=== PATIENT | male | born 1945 | race Caucasian/White ===

== ENCOUNTER 2017-07-10 15:06 | Inpatient (IN) | payer BC, OTHER ==
[~2017-07-10] VITALS: Ht 172.7 cm; Wt 76.8 kg
[2017-07-10] MEDS ORDERED: ONDANSETRON INJ 2 MG/ML 2 ML VIAL IV STA (15:25)
[2017-07-10] MEDS ORDERED: HYDROmorphone INJ 1 MG/ML SYR IV STA ×2 (15:25→17:35)
[2017-07-10] MEDS ORDERED: VALS160T58 PO (15:29)
[2017-07-10] MEDS ORDERED: ASPI81TA28 PO (15:29)
[2017-07-10] MEDS ORDERED: NXM/40 PO (15:29)
[2017-07-10] MEDS ORDERED: CHOL1000 PO (15:29)
[2017-07-10] MEDS ORDERED: ROSU40TA PO (15:29)
--- NOTE | 2017-07-10 15:33 | EMERGENCY ROOM VISIT NOTE ---
History First contact with patient: 15:16 Chief Complaint: BACK PAIN Stated Complaint: LOWER BACK PAIN History of Present Illness The patient is a 72 year old male who presents to the Emergency Room with complaints of low back pain. The patient states the pain started 6 days ago. He states that the pain was worse on Friday and he went to the [facility]. The patient followed up with his family doctor this week. He had an MRI of his lumbar spine yesterday. He did not get the results. He has an appointment with Dr. Sparrow's PA tomorrow. The patient has tried diazepam, steroids, Flexeril, oxycodone and has had no relief in his symptoms. The pain is in the low back, primarily on the right side. He rates his discomfort a 10/10. It radiates into the lateral proximal right thigh. 10/10. He denies any loss of bowel or bladder control. He denies any fevers. He denies any saddle anesthesia. He denies any weakness. The patient states that his family doctor encouraged him to come to the hospital for admission. He has not had any chest pain, trouble breathing, abdominal pain, vomiting. Review of Systems A 10 system review of systems was completed with positives and pertinent negatives listed in the HPI. Past Medical/Surgical History Medical Problems: (1) GERD (gastroesophageal reflux disease) (2) Hyperlipidemia (3) Hypertension (4) Lumbar stenosis with neurogenic claudication Social History Smoking Status: Former Smoker Current/Historical Medications Scheduled Aspirin (Aspirin Ec), 81 MG PO DAILY Cholecalciferol (Vitamin D3), 1 TAB PO DAILY Esomeprazole Magnesium (Nexium), 40 MG PO PRN Rosuvastatin Calcium (Crestor), 40 MG PO DAILY Valsartan/Hctz (Diovan Hct 160MG/12.5MG), 1 TAB PO DAILY Physical Exam Vital Signs Date Time Temp Pulse Resp B/P (MAP) Pulse Ox O2 Delivery O2 Flow Rate FiO2 07/10/17 17:55 61 18 139/97 99 Room Air 07/10/17 17:54 99 Room Air 07/10/17 15:10 36.7 73 18 146/75 98 Room Air Physical Exam VITALS: Vitals are noted on the nurse's note and reviewed by myself. Vital signs stable. The patient is afebrile. GENERAL: This is a 72-year-old male, in no acute distress, nondiaphoretic, well- developed well-nourished. SKIN: The skin was without rashes, erythema, edema, or bruising. There is no tenting of the skin. Capillary reflex less than 2 seconds. HEAD: Normocephalic atraumatic. EARS: The external ears are normal in appearance. EYES: Pupils equal round and reactive to light and accommodation. Conjunctivae without injection, sclerae without icterus. Extraocular movements intact. NOSE: Patent, turbinates without inflammation or discharge. No sinus tenderness. MOUTH: Mucous membranes moist. Tonsils are not enlarged. Pharynx without erythema or exudate. Uvula midline. Airway patent. Tongue does not deviate. NECK: Supple without nuchal rigidity. No lymphadenopathy. No thyromegaly. Cervical spine is nontender. No JVD. HEART: Regular rate and rhythm without murmurs gallops or rubs. LUNGS: Clear to auscultation bilaterally without wheezes, rales or rhonchi. No retractions or accessory muscle use. ABDOMEN: Positive bowel sounds x 4. Soft, nontender, without masses or organomegaly. MUSCULOSKELETAL: No muscle atrophy, erythema, or edema noted. Full range of motion in all extremities. Minimal tenderness to palpation in the lumbar vertebrae and laterally on the right. Normal gait. Strength 5/5 throughout. NEURO: Patient was alert and oriented to person place and time. Normal sensation to light and sharp touch. Deep tendon reflexes 2+ throughout. No focal neurological deficits. Medical Decision & Procedures ER Provider Diagnostic Interpretation: An MRI that was performed at 4 PM yesterday at [facility] report was obtained. It was attached to the chart. It does reveal herniated disks at L3- L4 and L5-S1. Laboratory Results 07/10/17 16:26 Red Blood Count 4.76, Mean Corpuscular Volume 93.1, Mean Corpuscular Hemoglobin 31.9, Mean Corpuscular Hemoglobin Concent 34.3, Mean Platelet Volume 9.9, Neutrophils (%) (Auto) 54.3, Lymphocytes (%) (Auto) 35.3, Monocytes (%) (Auto) 9.2, Eosinophils (%) (Auto) 0.8, Basophils (%) (Auto) 0.1, Neutrophils # (Auto) 5.31, Lymphocytes # (Auto) 3.45, Monocytes # (Auto) 0.90, Eosinophils # (Auto) 0.08, Basophils # (Auto) 0.01 07/10/17 16:26 Test 07/10/17 16:10 07/10/17 16:26 Urine Color YELLOW Urine Appearance CLEAR (CLEAR) Urine pH 6.5 (4.5-7.5) Urine Specific [place] 1.016 (1.000-1.030) Urine Protein NEG (NEG) Urine Glucose (UA) NEG (NEG) Urine Ketones NEG (NEG) Urine Occult Blood NEG (NEG) Urine Nitrite NEG (NEG) Urine Bilirubin NEG (NEG) Urine Urobilinogen NEG (NEG) Urine Leukocyte Esterase NEG (NEG) White Blood Count 9.78 K/uL (4.8-10.8) Red Blood Count 4.76 M/uL (4.7-6.1) Hemoglobin 15.2 g/dL (14.0-18.0) Hematocrit 44.3 % (42-52) Mean Corpuscular Volume 93.1 fL (80-100) Mean Corpuscular Hemoglobin 31.9 pg (25-34) Mean Corpuscular Hemoglobin Concent 34.3 g/dl (32-36) Platelet Count 286 K/uL (130-400) Mean Platelet Volume 9.9 fL (7.4-10.4) Neutrophils (%) (Auto) 54.3 % Lymphocytes (%) (Auto) 35.3 % Monocytes (%) (Auto) 9.2 % Eosinophils (%) (Auto) 0.8 % Basophils (%) (Auto) 0.1 % Neutrophils # (Auto) 5.31 K/uL (1.4-6.5) Lymphocytes # (Auto) 3.45 K/uL (1.2-3.4) Monocytes # (Auto) 0.90 K/uL (0.11-0.59) Eosinophils # (Auto) 0.08 K/uL (0-0.5) Basophils # (Auto) 0.01 K/uL (0-0.2) RDW Standard Deviation 44.7 fL (36.4-46.3) RDW Coefficient of Variation 13.1 % (11.5-14.5) Immature Granulocyte % (Auto) 0.3 % Immature Granulocyte # (Auto) 0.03 K/uL (0.00-0.02) Erythrocyte Sedimentation Rate 8 mm/hr (0-14) Anion Gap 5.0 mmol/L (3-11) Est Creatinine Clear Calc Drug Dose 60.4 ml/min Estimated GFR () 78.4 Estimated GFR (Non- 67.7 BUN/Creatinine Ratio 17.3 (10-20) Calcium Level 9.7 mg/dl (8.5-10.1) Total Bilirubin 0.4 mg/dl (0.2-1) Aspartate Amino Transf (AST/SGOT) 20 U/L (15-37) Alanine Aminotransferase (ALT/SGPT) 29 U/L (12-78) Alkaline Phosphatase 43 U/L (45-117) C-Reactive Protein < 0.29 mg/dl (0-0.29) Total Protein 7.3 gm/dl (6.4-8.2) Albumin 4.0 gm/dl (3.4-5.0) Globulin 3.3 gm/dl (2.5-4.0) Albumin/Globulin Ratio 1.2 (0.9-2) Medications Administered Medications (Trade) Dose Ordered Sig/Dorys Route Start Time Stop Time Status Last Admin Dose Admin Ondansetron HCl (Zofran Inj) 4 mg NOW STAT IV 07/10/17 15:25 07/10/17 15:26 DC 07/10/17 15:46 4 MG Hydromorphone HCl (Dilaudid Inj) 1 mg NOW STAT IV 07/10/17 15:25 07/10/17 15:26 DC 07/10/17 15:46 1 MG Hydromorphone HCl (Dilaudid Inj) 1 mg NOW STAT IV 07/10/17 17:35 07/10/17 17:36 DC 07/10/17 17:54 1 MG ED Course The patient was seen and examined. Previous visits were reviewed. The patient does not have a fever or leukocytosis. He does not have any significant electrolyte abnormality. Sedimentation rate and CRP are not elevated. Urinalysis is negative. MRI that was performed yesterday at 4 PM at [facility] was reviewed as above. He has herniated disks at L3-L4 and L5-S1. We did contact [facility] to see if there was any way too electronically transfer the MRI images. They stated that there was no way to do that. The patient does not have images on disc. The patient was given 4 mg IV Zofran and 1 mg IV Dilaudid He still continued to complain of significant pain and was given an additional 1 mg IV Dilaudid The patient presents to the emergency department with low back pain with radiation. He appears to have 2 herniated disks. He has failed outpatient treatment. He has seen his family doctor and [facility] emergency department. He has tried muscle relaxers, narcotics, anti-inflammatories with no relief whatsoever. The patient would benefit from further evaluation and management in the hospital. I discussed the case with Dr. Ortega and he will evaluate the patient. The patient was also seen and examined by Dr. Whyte who agrees with the assessment and treatment plan. Medical Decision DIFFERENTIAL DIAGNOSIS: Lumbar strain, degenerative disc disease, spondylolisthesis, herniated disc, spinal stenosis, osteoporosis, fracture, cauda equina syndrome, neoplasm, infection, inflammatory arthritis, among others. Medication Reconcilliation Current Medication List: was personally reviewed by me Blood Pressure Screening Patient's blood pressure: Elevated blood pressure Blood pressure disposition: Elevated BP felt to be situational Impression Primary Impression: Herniated lumbar intervertebral disc Additional Impression: Intractable low back pain Departure Information Dispostion Admitted as an inpatient Referrals Jose Maria Webb M.D. (PCP) Patient Instructions [facility] Problem Qualifiers
[2017-07-10 16:19] LABS: URINE APPEARANCE CLEAR (CLEAR); URINE BILIRUBIN NEG (NEG); URINE COLOR YELLOW; URINE NITRITE NEG (NEG); URINE PH 6.5 (4.5-7.5); URINE SPECIFIC GRAVITY 1.016 (1.000-1.030); UROBILINOGEN NEG (NEG); ZZUR CULT IF INDIC CLEAN CATCH NO
[2017-07-10 16:23] LABS: MANUAL MICROSCOPIC REQUIRED? NO; REVIEW REQ? NO
[2017-07-10 16:38] LABS: BASO % 0.1 %; BASO ABS # 0.01 K/uL (0-0.2); COMPLETE YES; EOS % 0.8 %; HEMATOCRIT 44.3 % (42-52); IG% 0.3 %; LYMPH % 35.3 %; LYMPH ABS # 3.45 K/uL (1.2-3.4); MEAN CELL VOLUME 93.1 fL (80-100); MEAN CORPUSCULAR HEMOGLOBIN 31.9 pg (25-34); MEAN CORPUSCULAR HGB CONC 34.3 g/dl (32-36); MEAN PLATELET VOLUME 9.9 fL (7.4-10.4); MONO % 9.2 %; NEUT % 54.3 %; PLATELET COUNT 286 K/uL (130-400); RED BLOOD COUNT 4.76 M/uL (4.7-6.1); WHITE BLOOD COUNT 9.78 K/uL (4.8-10.8)
[2017-07-10] MEDS: SODIUM CHLORIDE 0.9% 1000ML 1,000 ML IV SCH (16:52)
[2017-07-10 16:54] LABS: ALT/SGPT 29 U/L (12-78); BLOOD UREA NITROGEN 19 mg/dl (7-18); BUN/CREATININE RATIO 17.3 (10-20); C-REACTIVE PROTEIN < 0.29 mg/dl (0-0.29); CALCIUM 9.7 mg/dl (8.5-10.1); CARBON DIOXIDE 32 mmol/L (21-32); CHLORIDE 101 mmol/L (98-107); GLUCOSE 96 mg/dl (70-99); SODIUM 138 mmol/L (136-145)
[2017-07-10 16:57] LABS: ALB/GLOB RATIO 1.2 (0.9-2); ALKALINE PHOSPHATASE 43 U/L (45-117); AST/SGOT 20 U/L (15-37)
[2017-07-10] MEDS ORDERED: LORAZEPAM 1 MG TAB PO PRN (17:00)
[2017-07-10] MEDS ORDERED: PANTOprazole SOD 40 MG TAB PO PRN (17:00)
[2017-07-10] MEDS ORDERED: CYCLOBENZAPRINE HCL 10 MG TAB PO PRN (17:00)
[2017-07-10] MEDS ORDERED: NALOXONE HCL 0.4 MG/1 ML VIAL/CARP IV PRN (17:00)
[2017-07-10] MEDS ORDERED: LORAZEPAM INJ 1 MG in SYRINGE 0.5 ML IV PRN (17:00)
[2017-07-10] MEDS ORDERED: ACETAMINOPHEN 325 MG TAB PO PRN (17:00)
[2017-07-10] MEDS ORDERED: TRAMADOL HCL 50 MG TAB PO PRN (17:00)
[2017-07-10] MEDS ORDERED: ONDANSETRON INJ 2 MG/ML 2 ML VIAL IV PRN (17:00)
[2017-07-10] MEDS ORDERED: OXYCODONE/ACETAMINOPHEN 5-325 TAB PO PRN (17:00)
[2017-07-10 17:54] VITALS: O2SAT 99; Ht 172.7 cm; Wt 76.8 kg
--- NOTE | 2017-07-10 18:23 | EMERGENCY ROOM VISIT NOTE ---
ED Visit Note First contact with patient: 15:16 I have personally evaluated this patient examined her and reviewed the pertinent labs and data. I have discussed the case with Leilani Santoyo, the physician assistant business manager and agree with the plan. Please refer to the PA note. This patient has been having back pain for about a week and has been pretty severe radiating down his right leg. Despite appropriate outpatient pain medicine, he has had significant pain. He was placed in room B2 and was given IV Dilaudid and seemed more comfortable. Blood work does not suggest infection or electrolyte or metabolic abnormalities. On my exam, he seems comfortable but has pain with movement. He has no neurologic deficits in his legs. MRI from an outside hospital yesterday shows disc disease. We have consulted Dr. Ortega who is going to admit him for pain management and further treatment and evaluation.
[2017-07-10 18:40] VITALS: BP 135/87; PULSE 64; TEMP 36.7; O2SAT 98
--- NOTE | 2017-07-10 18:45 | DIAGNOSTIC IMAGING REPORT ---
CHEST 2 VIEWS ROUTINE HISTORY: pre op COMPARISON: None. FINDINGS: The lungs are clear. Cardiac silhouette is normal in size. No pleural effusions. No pneumothorax. IMPRESSION: No acute process. Electronically signed by: Genaro Tavares M.D. 07/10/2017 6:44 PM Dictated Date/Time: 07/10/2017 6:43 PM
--- NOTE | 2017-07-10 18:45 | DIAGNOSTIC IMAGING REPORT ---
L-SPINE MIN 4 VIEWS ROUTINE HISTORY: 72 years-old Male back and leg pain acute low back pain with right leg pain. COMPARISON: None available TECHNIQUE: 5 views of the lumbar spine FINDINGS: Bones are mildly demineralized. Mild posterior intervertebral disc space narrowing at L5-S1. Moderate facet arthropathy at L5-S1. Mild multilevel endplate spurring and facet arthropathy is noted. Multiple Schmorl's nodes are seen throughout the thoracic and lumbar spine. No acute fracture or subluxation. Vascular calcifications are noted. Soft tissues are unremarkable. IMPRESSION: 1. No acute fracture or subluxation. 2. Mild to moderate degenerative changes of the spine as above, most pronounced at L5-S1. The above report was generated using voice recognition software. It may contain grammatical, syntax or spelling errors. Electronically signed by: Morgan Preez M.D. 07/10/2017 6:44 PM Dictated Date/Time: 07/10/2017 6:41 PM
--- NOTE | 2017-07-10 19:21 | Medical Consult ---
Consultation Date of Consultation: Jul 10, 2017 at 20:00 . Attending Physician: Matthew Ortega D.O. . Reason for Consultation: Medical management . History of Present Illness 72-year-old male from [place]. History of hypertension, dyslipidemia, and other problems noted below. Underwent cardiac catheterization several years ago and was found to have minimal coronary disease (per patient's understanding). Developed low back pain about 6 days prior to admission. No trauma or heavy lifting. The pain is severe and radiates down his right extremity from his low back to his knee. Tried different medications including oxycodone, prednisone, Valium, Flexeril without relief. MRI performed in [place] yesterday reportedly demonstrated herniated discs at L3-L4 and L5-S1. Patient came to the ED for evaluation because of his persistent severe pain. He was admitted to the Orthopedics service for further evaluation and management. . Past Medical/Surgical History Chronic and Resolved Medical Problems: (1) GERD (gastroesophageal reflux disease) Status: Chronic (2) Hyperlipidemia Status: Chronic (3) Hypertension Status: Chronic Surgical Problems: (1) Status post cardiac catheterization Permanent Comment: minimal disease per pt's understanding Status: Chronic . Family History FATHER Myocardial infarction MOTHER Breast cancer Dementia Diabetes mellitus SISTER Cancer Social History Smoking Status: Former Smoker Alcohol Use: 3 beers / day Marital Status: Occupation Status: retired Allergies Coded Allergies: Tetracycline (Verified Allergy, Intermediate, Mood swings; rash, 07/10/17) Home Medications Reported Home Medications Medications Dose Route/Sig Max Daily Dose Days Date Category Dose Instructions Vitamin D3 (Cholecalciferol) 1,000 Unit Tab 1 Tab PO DAILY 07/10/17 Reported Diovan Hct 160MG/12.5MG (HCTZ/Valsartan) 1 Tab Tab 1 Tab PO DAILY 07/10/17 Reported 80MG/12.5MG Nexium (Esomeprazole Magnesium) 40 Mg Capcr 40 Mg PO PRN 07/10/17 Reported Aspirin Ec (Aspirin) 81 Mg Tab 81 Mg PO DAILY 07/10/17 Reported Crestor (Rosuvastatin Calcium) 40 Mg Tab 40 Mg PO DAILY 07/10/17 Reported Current Inpatient Medications Current Inpatient Medications Medications (Trade) Dose Ordered Sig/Dorys Route Start Time Stop Time Status Last Admin Dose Admin Acetaminophen (Tylenol Tab) 650 mg Q6H PRN PO 07/10/17 17:00 08/09/17 16:59 Docusate Sodium (coLACE CAP) 100 mg BID PO 07/10/17 21:00 08/09/17 20:59 Ondansetron HCl (Zofran Inj) 4 mg Q6H PRN IV 07/10/17 17:00 08/09/17 16:59 Lorazepam (Ativan Tab) 1 mg Q6H PRN PO 07/10/17 17:00 08/09/17 16:59 Lorazepam 1 mg/ Syringe 1 ml @ 1 mls/min Q6H PRN IV 07/10/17 17:00 08/09/17 16:59 Cyclobenzaprine HCl (Flexeril Tab) 10 mg Q8H PRN PO 07/10/17 17:00 08/09/17 16:59 Oxycodone/ Acetaminophen (Percocet 5-325mg Tab) Moderate to Severe kim... Q4H PRN PO 07/10/17 17:00 07/24/17 16:59 Tramadol HCl (Ultram Tab) 50 mg Q8H PRN PO 07/10/17 17:00 08/09/17 16:59 Naloxone HCl (Narcan Inj) 0.1 mg Q5M PRN IV 07/10/17 17:00 07/24/17 16:59 Hydromorphone HCl (Dilaudid Claim Manager) 25 mg PRN PRN IV 07/10/17 17:00 07/24/17 16:59 Sodium Chloride 1,000 ml @ 15 mls/hr Q24H IV 07/10/17 16:52 07/24/17 16:59 Aspirin (Ecotrin Tab) 81 mg DAILY PO 07/11/17 09:00 08/10/17 08:59 Rosuvastatin Calcium (Crestor Tab) 40 mg DAILY PO 07/11/17 09:00 08/10/17 08:59 Valsartan (Diovan Tab) 160 mg DAILY PO 07/11/17 09:00 08/10/17 08:59 Pantoprazole Sodium (Protonix Tab) 40 mg DAILY PRN PO 07/10/17 17:00 08/09/17 16:59 Hydrochlorothiazide (Hydrochlorothiazide Tab) 12.5 mg DAILY PO 07/11/17 09:00 08/10/17 08:59 Review of Systems Constitutional: No fever Respiratory: No cough, No shortness of breath Cardiovascular: No chest pain Abdomen: No nausea, No vomiting, No diarrhea, No GI bleeding Musculoskeletal: + joint pain (low back pain as noted above) Genitourinary - Male: No hematuria, No dysuria Hematologic / Lymphatic: No abnormal bleeding/bruising Physical Exam Date Time Temp Pulse Resp B/P (MAP) Pulse Ox O2 Delivery O2 Flow Rate FiO2 07/10/17 17:55 61 18 139/97 99 Room Air 07/10/17 17:54 99 Room Air 07/10/17 15:10 36.7 73 18 146/75 98 Room Air General Appearance: WD/WN, + moderate distress Head: normocephalic, atraumatic Eyes: normal inspection, PERRL, EOMI, sclerae normal ENT: hearing grossly normal, pharynx normal Neck: supple, no adenopathy, thyroid normal, no JVD, trachea midline Respiratory/Chest: lungs clear, no respiratory distress, no accessory muscle use Cardiovascular: regular rate, rhythm, no edema, no gallop, no JVD, no murmur Abdomen/GI: normal bowel sounds, non tender, soft, no organomegaly Back: + pertinent finding (tenderness over low lumbar spine) Extremities/Musculoskelatal: no calf tenderness, no pedal edema Neurologic/Psych: museum attendant II-XII nml as tested (PERRL, EOMI, no facial palsy, no dysarthria), no motor/sensory deficits (motor testing lower extremities grossly intact, but limited due to pain), alert, normal mood/affect, oriented x 3, + pertinent finding (patellar DTRs 1/2 bilaterally) Skin: normal color, warm/dry, no rash Lymphatic: no adenopathy (cervical) Laboratory Results Last 24 Hours Test 07/10/17 16:10 07/10/17 16:26 Urine Color YELLOW Urine Appearance CLEAR Urine pH 6.5 Urine Specific [place] 1.016 Urine Protein NEG Urine Glucose (UA) NEG Urine Ketones NEG Urine Occult Blood NEG Urine Nitrite NEG Urine Bilirubin NEG Urine Urobilinogen NEG Urine Leukocyte Esterase NEG White Blood Count 9.78 K/uL Red Blood Count 4.76 M/uL Hemoglobin 15.2 g/dL Hematocrit 44.3 % Mean Corpuscular Volume 93.1 fL Mean Corpuscular Hemoglobin 31.9 pg Mean Corpuscular Hemoglobin Concent 34.3 g/dl Platelet Count 286 K/uL Mean Platelet Volume 9.9 fL Neutrophils (%) (Auto) 54.3 % Lymphocytes (%) (Auto) 35.3 % Monocytes (%) (Auto) 9.2 % Eosinophils (%) (Auto) 0.8 % Basophils (%) (Auto) 0.1 % Neutrophils # (Auto) 5.31 K/uL Lymphocytes # (Auto) 3.45 K/uL Monocytes # (Auto) 0.90 K/uL Eosinophils # (Auto) 0.08 K/uL Basophils # (Auto) 0.01 K/uL RDW Standard Deviation 44.7 fL RDW Coefficient of Variation 13.1 % Immature Granulocyte % (Auto) 0.3 % Immature Granulocyte # (Auto) 0.03 K/uL Erythrocyte Sedimentation Rate 8 mm/hr Sodium Level 138 mmol/L Potassium Level 4.0 mmol/L Chloride Level 101 mmol/L Carbon Dioxide Level 32 mmol/L Anion Gap 5.0 mmol/L Blood Urea Nitrogen 19 mg/dl Creatinine 1.10 mg/dl Est Creatinine Clear Calc Drug Dose 60.4 ml/min Estimated GFR () 78.4 Estimated GFR (Non- 67.7 BUN/Creatinine Ratio 17.3 Random Glucose 96 mg/dl Calcium Level 9.7 mg/dl Total Bilirubin 0.4 mg/dl Aspartate Amino Transf (AST/SGOT) 20 U/L Alanine Aminotransferase (ALT/SGPT) 29 U/L Alkaline Phosphatase 43 U/L C-Reactive Protein < 0.29 mg/dl Total Protein 7.3 gm/dl Albumin 4.0 gm/dl Globulin 3.3 gm/dl Albumin/Globulin Ratio 1.2 Assessment & Plan LOW BACK PAIN Management per Orthopedics. NONOCCLUSIVE CORONARY ARTERY DISEASE Patient indicates a cardiac catheterization a few years ago demonstrated minimal disease and no intervention was recommended. Physically active without anginal symptoms. Check EKG. HYPERTENSION Blood pressure is well controlled. Continue valsartan and hydrochlorothiazide with hold parameters. Following titrate therapy. DYSLIPIDEMIA Continue statin. GERD Continue PPI. VTE PROPHYLAXIS Per Orthopedics protocol. Thank you for this consultation. We will follow the patient with you during their hospital stay. Dr. Dejesus will be rounding for our team starting Wednesday 07/11. You can reach a member of the [facility] via pager @ . You can reach me via cell @ [phone]. .
[2017-07-10] MEDS: HYDROmorphone HCL 0.5MG/ML 50 ML CASSETTE IV PRN ×2 (20:30→23:12)
[2017-07-10 20:45] VITALS: BP 125/86; PULSE 89; TEMP 36.7; O2SAT 95
[2017-07-10] MEDS ORDERED: INFLUENZA ADMINISTRATION CHARGE ONE (21:00)
[2017-07-10] MEDS ORDERED: INFLUENZA VACCINE HIGH DOSE 65+ 0.5 ML SYR IM. ONE (21:00)
[2017-07-10] MEDS: DOCUSATE SODIUM 100 MG CAP PO SCH (21:00)
[2017-07-10 22:00] VITALS: BP 120/73; PULSE 76; TEMP 37; O2SAT 94
[2017-07-10] MEDS ORDERED: GADAVIST IV PRN (22:15)
--- NOTE | 2017-07-10 22:20 | DIAGNOSTIC IMAGING REPORT ---
LUMBAR SPINE MRI WITH AND WITHOUT CONTRAST HISTORY: back and leg pain TECHNIQUE: Multiplanar multisequence MRI of the lumbar spine was performed both before and after the intravenous administration of contrast. COMPARISON: Lumbar spine 07/10/2017. FINDINGS: For the purpose of the report the L5-S1 disc space will be located on axial image 27 of 30. No fracture subluxation. Mild disc space. L3-L4 and L5-S1. The common terminates at the L1 level. Paraspinal soft tissues are unremarkable. Mild motion artifact. L1-L2: No significant central canal or neural foraminal narrowing. L2-L3: No significant central canal or neural foraminal narrowing. L3-L4: Broad-based posterior disc bulge with a right paracentral extrusion. The disc extrusion extends into and beyond the foramen and superiorly to the right posterior aspect the L3 vertebral body. The disc extrusion compresses the exiting right L3 nerve root best seen on sagittal image 4 and axial image 14 of 30. No significant central canal narrowing. Moderate right neural foraminal narrowing. L4-L5: No significant central canal or neural foraminal narrowing. L5-S1: Central/left paracentral focal disc protrusion which abuts and slightly displaces the transiting left S1 nerve root. There is also mild left neural foraminal narrowing. IMPRESSION: 1. A right paracentral disc extrusion at L3-L4 which extends into and beyond the right foramen as well as superiorly to the right posterior aspect of the L3 vertebral body. This compresses the exiting right L3 nerve root. 2. A central/left paracentral focal disc protrusion at L5-S1 which abuts and slightly displaces the transiting left S1 nerve root. Electronically signed by: Genaro Tavares M.D. 07/10/2017 10:18 PM Dictated Date/Time: 07/10/2017 10:12 PM
[2017-07-10 22:50] VITALS: BP 127/81; PULSE 74; TEMP 36.9
[2017-07-11 06:57] VITALS: BP 132/86; PULSE 58; TEMP 36.7; O2SAT 98
[2017-07-11] MEDS: HYDROmorphone HCL 0.5MG/ML 50 ML CASSETTE IV PRN ×3 (07:19→23:18)
[2017-07-11] MEDS: ROSUVASTATIN CALCIUM 20 MG TAB PO SCH (09:00)
[2017-07-11] MEDS: HYDROCHLOROTHIAZIDE 25 MG TAB PO SCH (09:00)
[2017-07-11] MEDS: DOCUSATE SODIUM 100 MG CAP PO SCH ×2 (09:00→20:44)
[2017-07-11] MEDS: VALSARTAN 80 MG TAB PO SCH (09:00)
[2017-07-11] MEDS: ASPIRIN 81 MG ECTAB PO SCH (09:00)
[2017-07-11 10:39] VITALS: BP 155/92; PULSE 64; TEMP 36.9; O2SAT 97
--- NOTE | 2017-07-11 11:46 | History and Physical ---
History & Physical Date Jul 11, 2017. Chief Complaint Severe right leg pain History of Present Illness The patient is a 72 year old male with complaints of severe back and right leg pain. States his symptoms began over week ago. Denies any specific trauma fall or event. Describes his symptoms as chronic consistent pain rating into the right buttock extending down the right anterior thigh consistent with numbness and weakness to the right leg. He's been unable to sleep. Ambulation is markedly limited secondary to pain. He cannot describe any position that alleviates his discomfort. Pain medications have very modest effect and controlling his symptom complex. He does have a history of intermittent back pain throughout the past decade but nothing to this severity. Past Medical/Surgical History Medical Problems: (1) GERD (gastroesophageal reflux disease) (2) Hyperlipidemia (3) Hypertension (4) Lumbar stenosis with neurogenic claudication Surgical Problems: (1) Status post cardiac catheterization Additional History Hepatic Disease: No Endocrine Disorder: No Kidney Disease: No Hypertension: Yes Heart Disease: No Bleeding Tendencies: No Infectious Diseases: No Allergies Coded Allergies: Tetracycline (Verified Allergy, Intermediate, Mood swings; rash, 07/10/17) Home Medications Scheduled Aspirin (Aspirin Ec), 81 MG PO DAILY Cholecalciferol (Vitamin D3), 1 TAB PO DAILY Esomeprazole Magnesium (Nexium), 40 MG PO PRN Rosuvastatin Calcium (Crestor), 40 MG PO DAILY Valsartan/Hctz (Diovan Hct 160MG/12.5MG), 1 TAB PO DAILY Physical Examination Skin: warm/dry, no rash Eyes: normal inspection, EOMI, sclerae normal ENT: normal ENT inspection, pharynx normal Head: normocephalic, atraumatic Neck: supple, no adenopathy, trachea midline Respiratory/Chest: lungs clear, normal breath sounds, no respiratory distress Cardiovascular: regular rate, rhythm, no edema, no murmur Abdomen / GI: normal bowel sounds, non tender Back: normal inspection Extremities: normal inspection, normal range of motion Neurologic/Psych: no motor/sensory deficits, alert, normal reflexes, oriented x 3 Addiitonal Comments: Patient is alert and oriented. He is not obvious distress. He exhibits marked decreased sensation to palpation light touch of the right anterior thigh compared to left. He exhibits of bilateral +5 over 5 plantar flexion dorsiflexion extensor pollicis longus. His right quadriceps is 4 over 5 with breakaway weakness compared to the left. He is negative logroll. He is marked tension signs with femoral stretch. Diagnosis Far lateral disc herniation with severe neural foraminal stenosis L3 4 on the right. Plan of Treatment At this time the patient is markedly uncomfortable is unable to undergo his activities of daily living and function. Subsequently he would like to pursue surgical intervention. Surgery would require a lumbar decompression and fusion at L3 4. This would allow us to completely decompress the foramina of L3-4 on the right as well as addressed the disc herniation occupying this region. We acknowledge some disc protrusion and collapse the 5 S1 level however this is not contributing to her symptom complex at this time. Risks benefits pros cons and alternatives were outlined in detail. Risk include but not limited to from anesthesia blindness sterile process nerve damage but last current transfusion infection requiring reoperation. Benefits of a marked improvement of his symptom complex. At this time we'll try to have surgery performed as soon as possible in light of the severity of his pain.
--- NOTE | 2017-07-11 11:54 | Progress Note ---
Internal Med Progress Note Date of Service: Jul 11, 2017. Provider Documentation: SUBJECTIVE: patient seen and examined at the bedside. he is in no acute distress. able to cooperative with physical exam. here for evaluation by orthopedics for possible surgery of lumbar decompression and fusion at L3 L4. OBJECTIVE: Exam: General- no acute distress Eyes- EOMI Nose - no exudates Neck-trachea midline, no JVD Lungs- clear to auscultation bilaterally Heart- RRR Abdomen- soft, nontender, + bowel sounds Back: no acute tenderness Extremities- no edema, no motor deficits Neuro- awake and alert and oriented ASSESSMENT & PLAN: LOW BACK PAIN here for evaluation by orthopedics for possible surgery of lumbar decompression and fusion at L3-L4 NONOCCLUSIVE CORONARY ARTERY DISEASE patient reports cardiac cath in 1978 and in 2005 without stents EKG this AM on 07/11/17 sinus bradycardia 57 beats per minute with incomplete RBBB and no available prior EKG available denies chest pain symptoms or shortness of breath, no leg edema, no JVD HYPERTENSION Blood pressure systolic 130s to 155 Continue valsartan and hydrochlorothiazide DYSLIPIDEMIA Continue statin. GERD Continue PPI. Alcohol use reports 3 beers daily with last beer 2 days ago. denies history of withdrawal symptoms. Ativan prn ordered for agitation or withdrawal VTE PROPHYLAXIS Per Orthopedics protocol. DISPOSITION patient awaiting orthopedic surgery for possible lumbar decompression and fusion at L3-L4 Medicine consult to continue following the patient post-op Vital Signs: Date Time Temp Pulse Resp B/P (MAP) Pulse Ox O2 Delivery O2 Flow Rate FiO2 07/11/17 10:39 36.9 64 16 155/92 (113) 97 Room Air 07/11/17 06:57 36.7 58 18 132/86 (101) 98 Room Air 07/11/17 00:00 Room Air 07/10/17 22:50 36.9 74 16 127/81 (96) Room Air 07/10/17 22:00 37.0 76 16 120/73 (89) 94 Room Air 07/10/17 20:45 36.7 89 18 125/86 (99) 95 Room Air 07/10/17 18:40 36.7 64 18 135/87 (103) 98 Room Air 07/10/17 18:40 98 Room Air 07/10/17 17:55 61 18 139/97 99 Room Air 07/10/17 17:54 99 Room Air 07/10/17 15:10 36.7 73 18 146/75 98 Room Air Lab Results: Results Past 24 Hours Test 07/10/17 16:10 07/10/17 16:26 Range/Units Urine Color YELLOW Urine Appearance CLEAR CLEAR Urine pH 6.5 4.5-7.5 Urine Specific Millis 1.016 1.000-1.030 Urine Protein NEG NEG Urine Glucose (UA) NEG NEG Urine Ketones NEG NEG Urine Occult Blood NEG NEG Urine Nitrite NEG NEG Urine Bilirubin NEG NEG Urine Urobilinogen NEG NEG Urine Leukocyte Esterase NEG NEG White Blood Count 9.78 4.8-10.8 K/uL Red Blood Count 4.76 4.7-6.1 M/uL Hemoglobin 15.2 14.0-18.0 g/dL Hematocrit 44.3 42-52 % Mean Corpuscular Volume 93.1 80-100 fL Mean Corpuscular Hemoglobin 31.9 25-34 pg Mean Corpuscular Hemoglobin Concent 34.3 32-36 g/dl Platelet Count 286 130-400 K/uL Mean Platelet Volume 9.9 7.4-10.4 fL Neutrophils (%) (Auto) 54.3 % Lymphocytes (%) (Auto) 35.3 % Monocytes (%) (Auto) 9.2 % Eosinophils (%) (Auto) 0.8 % Basophils (%) (Auto) 0.1 % Neutrophils # (Auto) 5.31 1.4-6.5 K/uL Lymphocytes # (Auto) 3.45 1.2-3.4 K/uL Monocytes # (Auto) 0.90 0.11-0.59 K/uL Eosinophils # (Auto) 0.08 0-0.5 K/uL Basophils # (Auto) 0.01 0-0.2 K/uL RDW Standard Deviation 44.7 36.4-46.3 fL RDW Coefficient of Variation 13.1 11.5-14.5 % Immature Granulocyte % (Auto) 0.3 % Immature Granulocyte # (Auto) 0.03 0.00-0.02 K/uL Erythrocyte Sedimentation Rate 8 0-14 mm/hr Sodium Level 138 136-145 mmol/L Potassium Level 4.0 3.5-5.1 mmol/L Chloride Level 101 98-107 mmol/L Carbon Dioxide Level 32 21-32 mmol/L Anion Gap 5.0 3-11 mmol/L Blood Urea Nitrogen 19 7-18 mg/dl Creatinine 1.10 0.60-1.40 mg/dl Est Creatinine Clear Calc Drug Dose 60.4 ml/min Estimated GFR () 78.4 Estimated GFR (Non- 67.7 BUN/Creatinine Ratio 17.3 10-20 Random Glucose 96 70-99 mg/dl Calcium Level 9.7 8.5-10.1 mg/dl Total Bilirubin 0.4 0.2-1 mg/dl Aspartate Amino Transf (AST/SGOT) 20 15-37 U/L Alanine Aminotransferase (ALT/SGPT) 29 12-78 U/L Alkaline Phosphatase 43 45-117 U/L C-Reactive Protein < 0.29 0-0.29 mg/dl Total Protein 7.3 6.4-8.2 gm/dl Albumin 4.0 3.4-5.0 gm/dl Globulin 3.3 2.5-4.0 gm/dl Albumin/Globulin Ratio 1.2 0.9-2
[2017-07-11] MEDS ORDERED: LORAZEPAM INJ 2 MG in SYRINGE 1 ML IV PRN (12:30)
[2017-07-11 14:50] VITALS: BP 150/93; PULSE 65; TEMP 36.8; O2SAT 99
[2017-07-11] MEDS: SODIUM CHLORIDE 0.9% 1000ML 1,000 ML IV SCH (16:52)
[2017-07-11 19:21] VITALS: BP 124/77; PULSE 73; TEMP 37.4; O2SAT 95
[2017-07-11 22:52] VITALS: BP 147/87; PULSE 70; TEMP 36.9; O2SAT 98
[2017-07-12] VITALS (11 sets, daily range): BP systolic 108–142; BP diastolic 70–87; PULSE 63–110; TEMP 36.3–37.7; O2SAT 90–99
[2017-07-12] MEDS: HYDROmorphone HCL 0.5MG/ML 50 ML CASSETTE IV PRN (07:12)
[2017-07-12] MEDS: ASPIRIN 81 MG ECTAB PO SCH (07:41)
[2017-07-12] MEDS: VALSARTAN 80 MG TAB PO SCH (07:41)
[2017-07-12] MEDS: DOCUSATE SODIUM 100 MG CAP PO SCH ×2 (07:41→21:19)
[2017-07-12] MEDS: HYDROCHLOROTHIAZIDE 25 MG TAB PO SCH (07:41)
[2017-07-12] MEDS: ROSUVASTATIN CALCIUM 20 MG TAB PO SCH (07:43)
--- NOTE | 2017-07-12 10:47 | History & Physical Bridge Note ---
H&P Re-Evaluation Bridge Note: I have examined the patient, reviewed the History & Physical and in the interval since the performance of the History & Physical I have noted the following changes of clinical significance: No changes noted
[2017-07-12] MEDS ORDERED: ATROPINE SULFATE 0.1 MG/ML 5ML SYR IV PRN (11:30)
[2017-07-12] MEDS ORDERED: LABETALOL HCL IV 5 MG/ML 20ML IV PRN (11:30)
[2017-07-12] MEDS ORDERED: ONDANSETRON INJ 2 MG/ML 2 ML VIAL IV PRN (11:30)
[2017-07-12] MEDS ORDERED: HYDROmorphone INJ 2 MG/ML SYR/VIAL IV PRN (11:30)
[2017-07-12] MEDS ORDERED: MIDAZOLAM HCL 1 MG/ML 2ML VIAL ONE (12:47)
[2017-07-12] MEDS ORDERED: DEXAMETHASONE SOD INJ 4 MG/ML VIAL ONE (12:47)
[2017-07-12] MEDS ORDERED: ONDANSETRON INJ 2 MG/ML 2 ML VIAL ONE (12:47)
[2017-07-12] MEDS ORDERED: FENTANYL CITRATE INJ 50 MCG/1 ML 2 ML VIAL ONE (12:47)
[2017-07-12] MEDS ORDERED: NEOSTIGMINE METHYLSULFATE 1 MG/ML 10ML VIAL ONE (12:47)
[2017-07-12] MEDS ORDERED: GLYCOPYRROLATE INJ 0.2 MG/ML VIAL ONE (12:47)
[2017-07-12] MEDS ORDERED: LIDOCAINE HCL 2% 2 ML VIAL (20MG/ML) ONE (12:47)
[2017-07-12] MEDS ORDERED: PROPOFOL IV EMULSION 10 MG/ML 20 ML VIAL IV ONE (12:47)
[2017-07-12] MEDS ORDERED: BUPIVACAINE/EPINEPHRINE 0.5% MPF 1:200,000 30 ML VIAL ONE (12:53)
[2017-07-12] MEDS ORDERED: BACITRACIN 50000 UNIT VIAL ONE (12:54)
[2017-07-12] MEDS ORDERED: ESMOLOL HCL 10 MG/ML 10 ML VIAL ONE (14:31)
[2017-07-12] MEDS ORDERED: ROCURONIUM BROMIDE 10 MG/ML 5 ML VIAL IV ONE (14:32)
[2017-07-12] MEDS ORDERED: EpHEDrine SULFATE 50MG/5ML SYR ONE (14:32)
[2017-07-12] MEDS ORDERED: PHENYLEPHRINE 100MCG/ML 5ML SYR ONE (14:32)
[2017-07-12] MEDS ORDERED: FLOSEAL HEMOSTATIC MATRIX 10ML TOP ONE (15:09)
--- NOTE | 2017-07-12 15:25 | [facility] Operative Report ---
Operative Report Operative Date Jul 12, 2017. Pre-Operative Diagnosis Far lateral disc herniation with severe neural foraminal stenosis L3 4 on the right. Post-Operative Diagnosis same as pre-operative Procedure(s) Performed #1 lumbar decompression medial facetectomy foraminotomies L3 4. #2 posterior spinal fusion L3 4. #3 placement posterior instrumentation L3 4. #4 interbody fusion L3 4. #5 placement peek cage 12 x 26 mm at L3 4. 6 placement locally harvested morcellized autograft in the posterior lateral gutters. #7 placement of ostial amp bone graft in the body space and posterior lateral gutters. Surgeon Dr. Matthew Ortega Estimated Blood Loss 100ml Findings Severe spinal stenosis with foraminal herniated nucleus pulposus on the right Specimens none per surgeon Description of Procedure Patient was met with preoperatively case discussed all questions are dressed. After informed consent obtained patient was taken to the operative suite and intubated placed in prone position the [place] table top [place] frame. All bony promises well-padded eyes inspected to ensure there is no external pressure placed upon. This point the lumbar spine was prepped and draped in normal sterile fashion. Sharp dissection with the assistance of Bovie cautery was performed onto an exposing the lamina and transverse processes of L3 and L4 bilaterally. From a caudal cephalad fashion complete laminectomy of 3 was performed including medial facetectomies foraminotomies bilaterally. Evidence of massive disc herniation the right neural foramen was identified and removed. This is grating significant compression of the L3 nerve root. After this complete pedicle screws are placed in L3-L4 bilaterally with assistance of fluoroscopy the purposes liane placed. Through a transforaminal approach on the right a complete discectomy was performed and plate created to subcortical bleeding bone and a 12 x 26 [place] peek cage filled with ostial amp tapped in position. The rods were then compressed locked and final position bilaterally. The transverse processes of L3 and L4 burred to subcortical bleeding bone. Remaining ostial amp bone graft locally harvested morcellized autograft was placed and posterior gutters. 15 round ARPIT drain inserted. Incision was then closed with 1 Vicryl fascia 2-0 Vicryl subcutaneous tediously 4 Monocryl for final skin closure Steri-Strip sterile dressing placed. Patient we can take PACU stable condition. I attest to the content of the Intraoperative Record and any orders documented therein. Any exceptions are noted below.
[2017-07-12] MEDS ORDERED: ADENOSINE IV SOLN 3 MG/ML 2 ML VIAL ONE ×2 (15:40→15:47)
[2017-07-12] MEDS ORDERED: NURSING VERBAL MED ORDER ONE ×2 (15:45→16:00)
[2017-07-12] MEDS ORDERED: HYDROmorphone INJ 2 MG/ML SYR/VIAL ONE (15:59)
--- NOTE | 2017-07-12 16:03 | Anesthesiology Progress Note ---
Anesthesia Progress Note Date of Service Jul 12, 2017. Progress Notes After taking patient ti ICU for his recovery time he went into a regular, narrow complex svt - hr in 140's - otherwise not sympomatic. Given adenosine 6mg IV which broke it for a couple minutes but it again returned. Adenosine 12mg IV given with good pause and result to HR 70's. Patient had had a very short self-limited run in the OR after induction and from talking to him has probably had in the past. Gave 2 doses of esmolol 10mg IV and spoke with Dr Friend from medicine who is being consulted and he requested a 12 lead ECG. Patient will be sent to a monitored bed when his recovery is complete.
--- NOTE | 2017-07-12 16:38 | Anesthesiology Progress Note ---
Anesthesia Post Op Note Date & Time Jul 12, 2017 at 16:38 Vital Signs Pain Intensity: 3 Vital Signs Past 12 Hours Date Time Temp Pulse Resp B/P (MAP) Pulse Ox O2 Delivery O2 Flow Rate FiO2 07/12/17 16:15 36.8 82 16 132/72 100 Nasal Cannula 4 07/12/17 16:05 85 16 145/72 100 Nasal Cannula 4 07/12/17 15:55 84 16 150/77 100 Nasal Cannula 4 07/12/17 15:45 71 16 127/67 100 Nasal Cannula 4 07/12/17 15:35 144 16 131/78 100 Nasal Cannula 4 07/12/17 15:25 37 98 16 125/65 100 Nasal Cannula 4 07/12/17 10:32 36.9 65 16 137/74 (95) 96 Room Air 07/12/17 07:45 36.6 63 18 138/87 (104) 98 Room Air 07/12/17 07:30 Room Air Notes Mental Status: alert / awake / arousable, participated in evaluation Pt Amnestic to Procedure: Yes Nausea / Vomiting: adequately controlled Pain: adequately controlled Airway Patency, RR, SpO2: stable & adequate BP & HR: stable & adequate Hydration State: stable & adequate Anesthetic Complications: no major complications apparent
--- NOTE | 2017-07-12 17:54 | Progress Note ---
Internal Med Progress Note Date of Service: Jul 12, 2017. Provider Documentation: SUBJECTIVE: follow up consultation note: patient s/p back surgery. was found in recovery time to have "a regular, narrow complex svt - hr in 140's - otherwise not symptomatic. Given adenosine 6mg IV which broke it for a couple minutes but it again returned. Adenosine 12mg IV given with good pause and result to HR 70's. " In addition anesthesia also gave 2 doses of esmolol 10 mg IV. Patient does not recall this episode as he was still under sedation at the time. was then transferred to a telemetry bed. patient comfortable breathing on room air. denies shortness of breath. denies chest pain or palpitations. is at his usual mental baseline OBJECTIVE: Exam: General- no acute distress, speaking in full sentences Eyes- EOMI Nose - no exudates Neck-trachea midline, no JVD Lungs- clear to auscultation bilaterally, no wheezing, no use of accessory respiratory muscles Heart- heart rate is regular around 90 beats per minute Abdomen- soft, nontender, + bowel sounds Back - ARPIT drain attached to back with serosanguinous fluid Extremities- no edema, no motor deficits Neuro- awake and alert and oriented x 3 ASSESSMENT & PLAN: LOW BACK PAIN s/p operation on 07/12/17 for the following #1 lumbar decompression medial facetectomy foraminotomies L3 4. #2 posterior spinal fusion L3 4. #3 placement posterior instrumentation L3 4. #4 interbody fusion L3 4. #5 placement peek cage 12 x 26 mm at L3 4. 6 placement locally harvested morcellized autograft in the posterior lateral gutters. #7 placement of ostial amp bone graft in the body space and posterior lateral gutters. Arrhythmia s/p adenosine and esmolol after surgery because of runs of SVT currently in sinus rhythm on telemetry will need pain medications s/p back surgery to minimize sinus tachycardia secondary to pain NONOCCLUSIVE CORONARY ARTERY DISEASE patient reports cardiac cath in 1978 and in 2005 without stents EKG AM on 07/11/17 sinus bradycardia 57 beats per minute with incomplete RBBB and no available prior EKG available HYPERTENSION Blood pressure systolic 130s to 155 Continue valsartan and hydrochlorothiazide DYSLIPIDEMIA Continue statin. GERD Continue PPI. Alcohol use reports 3 beers daily with last beer 2 days ago. denies history of withdrawal symptoms. Ativan prn ordered for agitation or withdrawal VTE PROPHYLAXIS Per Orthopedics protocol. DISPOSITION Medicine consult to continue following the patient post-op Vital Signs: Date Time Temp Pulse Resp B/P (MAP) Pulse Ox O2 Delivery O2 Flow Rate FiO2 07/12/17 17:57 36.5 79 16 133/75 (94) 99 Nasal Cannula 07/12/17 17:15 36.6 78 21 142/84 (103) 96 Nasal Cannula 2.0 07/12/17 17:00 36.6 96 18 136/84 (101) 90 Room Air 07/12/17 16:30 36.8 79 16 139/76 97 Room Air 07/12/17 16:15 36.8 82 16 132/72 100 Nasal Cannula 4 07/12/17 16:05 85 16 145/72 100 Nasal Cannula 4 07/12/17 15:55 84 16 150/77 100 Nasal Cannula 4 07/12/17 15:45 71 16 127/67 100 Nasal Cannula 4 07/12/17 15:35 144 16 131/78 100 Nasal Cannula 4 07/12/17 15:25 37 98 16 125/65 100 Nasal Cannula 4 07/12/17 10:32 36.9 65 16 137/74 (95) 96 Room Air 07/12/17 07:45 36.6 63 18 138/87 (104) 98 Room Air 07/12/17 07:30 Room Air 07/12/17 03:31 36.8 70 16 135/84 (101) 95 Room Air 07/11/17 23:34 Room Air 07/11/17 22:52 36.9 70 20 147/87 (107) 98 Room Air 07/11/17 19:21 37.4 73 18 124/77 (93) 95 Room Air
[2017-07-12] MEDS: SODIUM CHLORIDE 0.9% 1000ML 1,000 ML IV SCH (18:03)
[2017-07-12] MEDS: DEXAMETHASONE INJ 10 MG in SYRINGE 0 ML IV SCH (21:19)
[2017-07-13 03:20] VITALS: BP 110/76; PULSE 95; TEMP 36.7; O2SAT 93
[2017-07-13 07:05] VITALS: BP 124/81; PULSE 83; TEMP 36.6; O2SAT 97
[2017-07-13] MEDS: DEXAMETHASONE INJ 10 MG in SYRINGE 0 ML IV SCH ×2 (08:24→13:11)
[2017-07-13] MEDS: DOCUSATE SODIUM 100 MG CAP PO SCH ×2 (08:25→20:31)
[2017-07-13] MEDS: ASPIRIN 81 MG ECTAB PO SCH (08:25)
[2017-07-13] MEDS: VALSARTAN 80 MG TAB PO SCH (08:25)
[2017-07-13] MEDS: ROSUVASTATIN CALCIUM 20 MG TAB PO SCH (08:26)
--- NOTE | 2017-07-13 08:28 | Orthopedic Progress Note ---
Orthopedic Progress Note Date of Service Jul 13, 2017. Subjective Post OP Day: 1 Reports: feeling well Additional Notes: Jayro's postoperative day one lumbar decompression and instrumented fusion of L3 4. He is in the telemetry floor due to a new onset postoperatively of SVTs and a heart rate of 140. This is stable. He denies shortness of breath or chest pain. Denies radicular leg pain. Back pain is controlled. Objective calves soft nontender, N/V intact, dressing C/D/I, A&O x3, toes mobile Patient is seen in conjunction with his . He is up at the sink brushing his teeth. No obvious distress. Lumbar dressing is clean dry and intact. Neurovascularly intact bilateral lower extremities Date Time Temp Pulse Resp B/P (MAP) Pulse Ox O2 Delivery O2 Flow Rate FiO2 07/13/17 07:05 36.6 83 16 124/81 (95) 97 Room Air 07/13/17 04:00 Room Air 07/13/17 03:20 36.7 95 20 110/76 (87) 93 Room Air 07/13/17 00:00 Room Air 07/12/17 23:28 36.7 98 20 122/75 (91) 95 Room Air 07/12/17 20:30 36.6 105 21 108/72 (84) 94 Room Air 07/12/17 20:00 Room Air 07/12/17 19:30 37.7 110 20 111/70 (84) 94 Room Air 07/12/17 18:30 36.5 108 16 122/80 (94) 96 Nasal Cannula 2.0 07/12/17 17:57 36.5 79 16 133/75 (94) 99 Nasal Cannula 07/12/17 17:30 36.3 81 21 125/78 (94) 98 Nasal Cannula 2.0 07/12/17 17:15 36.6 78 21 142/84 (103) 96 Nasal Cannula 2.0 07/12/17 17:00 36.6 96 18 136/84 (101) 90 Room Air 07/12/17 16:30 36.8 79 16 139/76 97 Room Air 07/12/17 16:15 36.8 82 16 132/72 100 Nasal Cannula 4 07/12/17 16:05 85 16 145/72 100 Nasal Cannula 4 07/12/17 15:55 84 16 150/77 100 Nasal Cannula 4 07/12/17 15:45 71 16 127/67 100 Nasal Cannula 4 07/12/17 15:35 144 16 131/78 100 Nasal Cannula 4 07/12/17 15:25 37 98 16 125/65 100 Nasal Cannula 4 07/12/17 10:32 36.9 65 16 137/74 (95) 96 Room Air Assessment & Plan Assessment: Postoperative day 1 lumbar decompression with instrumented fusion. 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 Start physical therapy. DVT prophylaxis is in the form of a teds and scds. Continue pain control with oral medication. Once medically stable he'll be transferred to the orthopedic floor. Inhouse Planning DVT Prophylaxis: TEDs SCDs
[2017-07-13] MEDS: HYDROCHLOROTHIAZIDE 25 MG TAB PO SCH (09:10)
[2017-07-13 11:20] VITALS: BP 118/76; PULSE 95; TEMP 36.8; O2SAT 97
[2017-07-13] MEDS ORDERED: NURSING VERBAL MED ORDER ONE (13:45)
--- NOTE | 2017-07-13 15:24 | Progress Note ---
Internal Med Progress Note Date of Service: Jul 13, 2017. Provider Documentation: SUBJECTIVE: patient seen and examined in telemetry floor. patient denies chest pain or palpitations. reports he has been walking without significant discomfort. OBJECTIVE: Exam: General- no acute distress, speaking in full sentences Eyes- EOMI Nose - no exudates Neck-trachea midline, no JVD Lungs- clear to auscultation bilaterally, no wheezing, no use of accessory respiratory muscles Heart- heart rate is regular around 90 beats per minute Abdomen- soft, nontender, + bowel sounds Back - ARPIT drain attached to back with serosanguinous fluid Extremities- no edema, no motor deficits Neuro- awake and alert and oriented x 3 ASSESSMENT & PLAN: LOW BACK PAIN s/p operation on 07/12/17 for the following #1 lumbar decompression medial facetectomy foraminotomies L3 4. #2 posterior spinal fusion L3 4. #3 placement posterior instrumentation L3 4. #4 interbody fusion L3 4. #5 placement peek cage 12 x 26 mm at L3 4. 6 placement locally harvested morcellized autograft in the posterior lateral gutters. #7 placement of ostial amp bone graft in the body space and posterior lateral gutters. Arrhythmia s/p adenosine and esmolol after surgery because of runs of SVT currently in sinus rhythm on telemetry likely can discontinue telemetry at this time but will defer this to primary orthopedic team continue pain medications s/p back surgery to minimize sinus tachycardia secondary to pain NONOCCLUSIVE CORONARY ARTERY DISEASE patient reports cardiac cath in 1978 and in 2005 without stents EKG AM on 07/11/17 sinus bradycardia 57 beats per minute with incomplete RBBB and no available prior EKG available HYPERTENSION Blood pressure controlled Continue valsartan and hydrochlorothiazide DYSLIPIDEMIA Continue statin. GERD Continue PPI. Alcohol use reports 3 beers daily with last beer 2 days ago. denies history of withdrawal symptoms. no withdrawal symptoms observed VTE PROPHYLAXIS Per Orthopedics protocol. DISPOSITION Medicine consult to continue following the patient post-op Vital Signs: Date Time Temp Pulse Resp B/P (MAP) Pulse Ox O2 Delivery O2 Flow Rate FiO2 07/13/17 12:00 Room Air 07/13/17 11:20 36.8 95 16 118/76 (90) 97 Room Air 07/13/17 08:00 Room Air 07/13/17 07:05 36.6 83 16 124/81 (95) 97 Room Air 07/13/17 04:00 Room Air 07/13/17 03:20 36.7 95 20 110/76 (87) 93 Room Air 07/13/17 00:00 Room Air 07/12/17 23:28 36.7 98 20 122/75 (91) 95 Room Air 07/12/17 20:30 36.6 105 21 108/72 (84) 94 Room Air 07/12/17 20:00 Room Air 07/12/17 19:30 37.7 110 20 111/70 (84) 94 Room Air 07/12/17 18:30 36.5 108 16 122/80 (94) 96 Nasal Cannula 2.0 07/12/17 17:57 36.5 79 16 133/75 (94) 99 Nasal Cannula 07/12/17 17:30 36.3 81 21 125/78 (94) 98 Nasal Cannula 2.0 07/12/17 17:15 36.6 78 21 142/84 (103) 96 Nasal Cannula 2.0 07/12/17 17:00 36.6 96 18 136/84 (101) 90 Room Air 07/12/17 16:30 36.8 79 16 139/76 97 Room Air 07/12/17 16:15 36.8 82 16 132/72 100 Nasal Cannula 4 07/12/17 16:05 85 16 145/72 100 Nasal Cannula 4 07/12/17 15:55 84 16 150/77 100 Nasal Cannula 4 07/12/17 15:45 71 16 127/67 100 Nasal Cannula 4 07/12/17 15:35 144 16 131/78 100 Nasal Cannula 4 07/12/17 15:25 37 98 16 125/65 100 Nasal Cannula 4
[2017-07-13 15:50] VITALS: BP 139/74; PULSE 79; TEMP 36.8; O2SAT 95
[2017-07-13 19:26] VITALS: BP 113/77; PULSE 91; TEMP 37.3; O2SAT 97
[2017-07-13 23:50] VITALS: BP 135/83; PULSE 75; TEMP 36.7; O2SAT 98
[2017-07-14 04:00] VITALS: BP 105/62; PULSE 82; TEMP 36.8; O2SAT 97
[2017-07-14 07:43] VITALS: BP 105/68; PULSE 78; TEMP 36.9; O2SAT 98
[2017-07-14] MEDS: HYDROCHLOROTHIAZIDE 25 MG TAB PO SCH (08:26)
[2017-07-14] MEDS: VALSARTAN 80 MG TAB PO SCH (08:26)
[2017-07-14] MEDS: DOCUSATE SODIUM 100 MG CAP PO SCH (08:27)
[2017-07-14] MEDS: ROSUVASTATIN CALCIUM 20 MG TAB PO SCH (08:27)
[2017-07-14] MEDS: ASPIRIN 81 MG ECTAB PO SCH (08:27)
--- NOTE | 2017-07-14 09:09 | Progress Note ---
Internal Med Progress Note Date of Service: Jul 14, 2017. Provider Documentation: SUBJECTIVE: patient seen and examined in telemetry floor. patient denies chest pain or palpitations. reports he has been walking without significant discomfort. OBJECTIVE: Exam: General- no acute distress, speaking in full sentences, seen ambulating in hallway to the bed without discomfort or problems with gait Eyes- EOMI Nose - no exudates Neck-trachea midline, no JVD Lungs- clear to auscultation bilaterally, no wheezing, no use of accessory respiratory muscles Heart- heart rate is regular around 90 beats per minute Abdomen- soft, nontender, + bowel sounds Back - ARPIT drain attached to back Extremities- no edema, no motor deficits Neuro- awake and alert and oriented x 3 ASSESSMENT & PLAN: LOW BACK PAIN s/p operation on 07/12/17 for the following #1 lumbar decompression medial facetectomy foraminotomies L3 4. #2 posterior spinal fusion L3 4. #3 placement posterior instrumentation L3 4. #4 interbody fusion L3 4. #5 placement peek cage 12 x 26 mm at L3 4. 6 placement locally harvested morcellized autograft in the posterior lateral gutters. #7 placement of ostial amp bone graft in the body space and posterior lateral gutters. Arrhythmia s/p adenosine and esmolol immediately after surgery because of runs of SVT currently in sinus rhythm on telemetry, review of telemetry overnight with PVCs likely can discontinue telemetry at this time but will defer this to primary orthopedic team continue pain medications s/p back surgery to minimize sinus tachycardia secondary to pain NONOCCLUSIVE CORONARY ARTERY DISEASE patient reports cardiac cath in 1978 and in 2005 without stents EKG AM on 07/11/17 sinus bradycardia 57 beats per minute with incomplete RBBB and no available prior EKG available HYPERTENSION Blood pressure controlled Continue valsartan and hydrochlorothiazide DYSLIPIDEMIA Continue statin. GERD Continue PPI. Alcohol use reports 3 beers daily with last beer 2 days ago. denies history of withdrawal symptoms. no withdrawal symptoms observed Pain control medication as per Orthopedics VTE PROPHYLAXIS Per Orthopedics protocol. DISPOSITION Medicine consult to continue following the patient post-op, patient reports he is expecting to go to rehab soon Vital Signs: Date Time Temp Pulse Resp B/P (MAP) Pulse Ox O2 Delivery O2 Flow Rate FiO2 07/14/17 07:43 36.9 78 16 105/68 (80) 98 Room Air 07/14/17 04:00 Room Air 07/14/17 04:00 36.8 82 18 105/62 (76) 97 Room Air 07/14/17 00:00 Room Air 07/13/17 23:50 36.7 75 18 135/83 (100) 98 Room Air 07/13/17 20:00 Room Air 07/13/17 19:26 37.3 91 20 113/77 (89) 97 Room Air 07/13/17 15:50 36.8 79 20 139/74 (95) 95 Room Air 07/13/17 15:25 Room Air 07/13/17 12:00 Room Air 07/13/17 11:20 36.8 95 16 118/76 (90) 97 Room Air
--- NOTE | 2017-07-14 11:03 | Anesthesiology Progress Note ---
Anesthesia Post Op Note Date & Time Jul 14, 2017 at 11:03 Vital Signs Vital Signs Past 12 Hours Date Time Temp Pulse Resp B/P (MAP) Pulse Ox O2 Delivery O2 Flow Rate FiO2 07/14/17 08:00 Room Air 07/14/17 07:43 36.9 78 16 105/68 (80) 98 Room Air 07/14/17 04:00 Room Air 07/14/17 04:00 36.8 82 18 105/62 (76) 97 Room Air 07/14/17 00:00 Room Air 07/13/17 23:50 36.7 75 18 135/83 (100) 98 Room Air Notes Mental Status: alert / awake / arousable, participated in evaluation Pt Amnestic to Procedure: Yes Nausea / Vomiting: adequately controlled Pain: adequately controlled Airway Patency, RR, SpO2: stable & adequate BP & HR: stable & adequate Hydration State: stable & adequate Anesthetic Complications: no major complications apparent
[2017-07-14 11:38] VITALS: BP 124/81; PULSE 74; TEMP 36.1; O2SAT 99
[2017-07-14] MEDS ORDERED: OXYC-57 PO (12:25)
--- NOTE | 2017-07-14 12:26 | Discharge Instructions ---
Discharge Instructions Date of Service Jul 14, 2017. Admission Reason for Admission: Lumbar Stenosis With Neurogenic Claudication Discharge Discharge Diagnosis / Problem: lumbar stenosis Discharge Goals Goal(s): Improve function Activity Recommendations Activity Limitations: per Instructions/Follow-up section . Instructions / Follow-Up Instructions / Follow-Up ACTIVITY RECOMMENDATIONS: SELF CARE INSTRUCTIONS AFTER THORACIC/LUMBAR FUSIONS 1. You may walk to your tolerance. It is good exercise for your legs and back. Expect some back and intermittent leg aches and pains. 2. You may perform "counter-top" level activities (make a sandwich, luzmaria with a project, etc.). 3. No bending or lifting of more than 10 pounds or back twisting of any nature (roll like a log when turning in bed). 4. You may ride in a car for 20-30 minutes at a time. No driving until after your first visit with your doctor. 5. Frequent changes of position and restricting sitting to 30 minutes at a time will help limit the amount of back spasms and stiffness you may experience. 6. You may discontinue the use of ambulatory aids (cane, crutches, etc.) once your strength and confidence allow. 7. You may edge glue machine tender the shower and let water strike your incision when you arrive home at least once daily. Do not take a tub bath, sit in a hot tub or go into a swimming pool until after your first recheck in the office. SPECIAL CARE INSTRUCTIONS: VERY IMPORTANT TO READ AND REVIEW A. Your surgical incision has been closed with a cosmetic suture under the skin that will dissolve in about 6 weeks. In 14 days, you can use a pair of clean scissors and cut the suture that is left outside of the skin at the ends of your incision. 1. The small skin tapes can be removed 7 days after surgery if they have not fallen off by that point. 2. You may keep the wound open to air as much as possible to promote healing after post-op day number 5 unless told otherwise by your doctor. 3. If you think the wound looks like it is becoming infected (redness or worsening drainage) and/or you are experiencing fever, chill or worsening back pain and muscle spasms, contact the office so that we may evaluate you as soon as possible. B. Complications are uncommon, but please contact us if you have any signs or symptoms of: 1. wound infection (fever higher than 102.5 degrees F, redness, separation of wound, drainage, or increasing pain from the incision) 2. blood clots in legs (pain, swelling, redness and warmth in legs) 3. urinary tract infection (fever higher than 102.5 degrees F, burning upon urination or increased frequency of urination) 4. nerve problems (inability to walk on your toes or heels, numbness, loss of bowel or bladder control) 5. any other symptoms that concern you C. Please call the office at if you have any concerns or questions about your operation or recovery. D. No smoking! Smoking drastically decreases the chance of a solid fusion. E. Do not take any anti-inflammatory medications (Indocin, Advil, Motrin, Aspirin, Naprosyn, etc.) as these may inhibit the chance of a solid fusion. Tylenol is okay to take for pain. MANAGING PAIN AFTER SPINAL SURGERY 1. Narcotic medication is intended for short-term use and will be provided for surgical pain. Surgical pain usually lasts for a period of 4-6 weeks. Narcotic medication includes Percocet, Vicodin, Darvocet, Tylenol #3 or Lortab. 2. Longer-term pain is more appropriately treated with non-narcotic medication such as Tylenol ES. 3. Muscle spasm is not appropriately treated with narcotics. Muscle relaxers such as Soma, Flexeril or Skelaxin can be used along with Tylenol ES. 4. Remember that we all live with some "aches and pains". This is not unusual or uncommon after an injury or as we get older. a. Back pain is expected and may include muscle spasms for 4 to 6 weeks after surgery. The pain should gradually improve. If the pain worsens for no apparent reason, please contact the office. b. Intermittent leg pain may also be experienced and should not be concerned about unless it worsens for no apparent reason. If so, please contact the office. 5. We will provide appropriate medication within the normal guidelines of their prescribed use. We will also be very cautious and aware of potential abuse and extended duration of patients' medication needs. a. Pain medications are for your comfort and to assist with sleep and rest so that the tissue can heal. They are not provided in order to return to normal activity and should not be used through the day. To do so or worsening pain at night can result from ongoing tissue damage and development of tolerance to the prescribed medicine. 6. Please allow 2-3 days to process refills. Prescriptions will not be mailed but must be picked up at the office. FOLLOW UP VISIT: Keep your scheduled follow-up appointment. Any questions, please call the office at . Current Hospital Diet Patient's current hospital diet: Regular Diet Discharge Diet Recommended Diet: Regular Diet Procedures Procedures Performed: #1 lumbar decompression medial facetectomy foraminotomies L3 4. #2 posterior spinal fusion L3 4. #3 placement posterior instrumentation L3 4. #4 interbody fusion L3 4. #5 placement peek cage 12 x 26 mm at L3 4. 6 placement locally harvested morcellized autograft in the posterior lateral gutters. #7 placement of ostial amp bone graft in the body space and posterior lateral gutters. Pending Studies Studies pending at discharge: no Medical Emergencies . Who to Call and When: Medical Emergencies: If at any time you feel your situation is an emergency, please call 911 immediately. . Non-Emergent Contact Non-Emergency issues call your: Primary Care Provider . "Provider Documentation" section prepared by Matthew Ortega. . VTE Core Measure Inpt VTE Proph given/why not?: Nino Rodriguez, [facility]
[2017-07-14 13:05] VITALS: BP 124/81; PULSE 74; TEMP 36.1; O2SAT 99
--- NOTE | 2017-07-14 15:09 | Discharge Summary ---
Orthopedic Discharge Summary Admission Date/Reason Jul 10, 2017 at 16:59 Lumbar Stenosis With Neurogenic Claudication. Discharge Date/Disposition Jul 14, 2017 Home Diagnosis Principal Diagnosis: Lumbar spinal stenosis herniated nucleus pulposus L34 Admission Physical Exam As per Admitting History & Physical. Hospital Course Patient was admitted with the severe leg and back pain for pain control. He underwent preoperative evaluation subsequent lumbar decompression fusion. He tolerated this well was up and amatory postoperative day 1 into pain improved. Substernally was discharged home. Discharge orders and instructions found on the chart for further review. Discharge Instructions Please refer to the electronic Patient Visit Report (Discharge Instructions) for additional information.
--- NOTE | 2017-07-15 07:53 | DIAGNOSTIC IMAGING REPORT ---
INTRAOPERATIVE RADIOGRAPHS CLINICAL HISTORY: L3-L4 spinal fusion. Fluoroscopy time: 15 seconds. FINDINGS: 2 spot fluoroscopic views of the lumbar spine are presented. There has been discectomy at L4-L5 with laminectomy and posterior fusion at this level. Interpedicular screws are present at both levels. The orthopedic hardware appears intact. IMPRESSION: Intraoperative images from L4 -L5 spinal fusion as above. Electronically signed by: Teo Fitzgerald M.D. 07/14/2017 7:43 AM Dictated Date/Time: 07/14/2017 7:42 AM
== END 2017-07-14 13:25 | disposition home or self-care (01) | DRG 460 ==
LOC: C.EDB 15:10 → C.MSW 16:59 → ENRESERV 17:40 → C.2T 07-12 17:27
PROVIDERS: ADMIT Orthopaedic Surgery Orthopaedic Surgery of the Spine; ATTEND Orthopaedic Surgery Orthopaedic Surgery of the Spine
PROC: 01NB0ZZ Release Lumbar Nerve, Open Approach (ICD-10-PCS; principal; 2017-07-12 10:45)
PROC: 0SG00AJ Fusion of Lumbar Vertebral Joint with Interbody Fusion Device, Posterior Approach, Anterior Column, Open Approach (ICD-10-PCS; principal; 2017-07-12 10:45)
DX: M48.062 Spinal stenosis, lumbar region with neurogenic claudication (principal); I47.1 Supraventricular tachycardia; M51.26 Other intervertebral disc displacement, lumbar region; I25.10 Atherosclerotic heart disease of native coronary artery without angina pectoris; I10 Essential (primary) hypertension; E78.5 Hyperlipidemia, unspecified; K21.9 Gastro-esophageal reflux disease without esophagitis; F10.20 Alcohol dependence, uncomplicated; Z87.891 Personal history of nicotine dependence; Z79.82 Long term (current) use of aspirin; Z79.899 Other long term (current) drug therapy; Z88.1 Allergy status to other antibiotic agents; Z82.49 Family history of ischemic heart disease and other diseases of the circulatory system; Z83.3 Family history of diabetes mellitus; Z80.3 Family history of malignant neoplasm of breast; Z81.8 Family history of other mental and behavioral disorders

== ENCOUNTER 2017-07-27 22:23 | Emergency (ER) | payer BC, OTHER ==
[~2017-07-27] VITALS: Ht 172.7 cm; Wt 76.3 kg
[~2017-07-27 22:23] MED LIST: ASPI81TA28 PO; CHOL1000 PO; NXM/40 PO; OXYC-57 PO; ROSU40TA PO; VALS160T58 PO
[2017-07-27 22:27] VITALS: Ht 172.7 cm; Wt 76.3 kg
[2017-07-27] MEDS ORDERED: SODIUM CHLORIDE 0.9% 1000ML 1,000 ML IV STA (22:45)
[2017-07-27] MEDS ORDERED: DILTIAZEM HCL 5 MG/ML 5 ML VIAL IV STA (22:49)
[2017-07-27 22:53] LABS: BASO % 0.2 %; BASO ABS # 0.02 K/uL (0-0.2); COMPLETE YES; EOS % 0.9 %; HEMATOCRIT 40.6 % (42-52); IG% 0.7 %; LYMPH % 22.1 %; LYMPH ABS # 2.33 K/uL (1.2-3.4); MEAN CELL VOLUME 90.8 fL (80-100); MEAN CORPUSCULAR HGB CONC 35.2 g/dl (32-36); MEAN PLATELET VOLUME 9.4 fL (7.4-10.4); MONO % 10.9 %; NEUT % 65.2 %; PLATELET COUNT 376 K/uL (130-400); RED BLOOD COUNT 4.47 M/uL (4.7-6.1); WHITE BLOOD COUNT 10.56 K/uL (4.8-10.8)
[2017-07-27 23:02] LABS: INR 1.1 (0.9-1.1); PROTHROMBIN TIME (PATIENT) 11.3 SECONDS (9.0-12.0)
[2017-07-27 23:09] VITALS: O2SAT 97
[2017-07-27 23:22] LABS: ALT/SGPT 29 U/L (12-78); BLOOD UREA NITROGEN 18 mg/dl (7-18); BUN/CREATININE RATIO 15.8 (10-20); CALCIUM 9.2 mg/dl (8.5-10.1); CARBON DIOXIDE 27 mmol/L (21-32); CHLORIDE 103 mmol/L (98-107); CREATININE 1.13 mg/dl (0.60-1.40); GLUCOSE 65 mg/dl (70-99); POTASSIUM 3.9 mmol/L (3.5-5.1); SODIUM 138 mmol/L (136-145)
[2017-07-27 23:33] LABS: ALKALINE PHOSPHATASE 59 U/L (45-117); AST/SGOT 17 U/L (15-37); CKMB/CK RATIO 2.5 (0-3.0)
[2017-07-28 00:04] VITALS: BP 110/71; PULSE 58; TEMP 36.7; O2SAT 97
--- NOTE | 2017-07-28 00:22 | EMERGENCY ROOM VISIT NOTE ---
History Report prepared by Cr: Candice Vallejo Under the Supervision of: Dr. Koffi Lea D.O. First contact with patient: 22:35 Chief Complaint: CARDIAC ASSESSMENT Stated Complaint: LIGHT HEADED, HIGH PULSE 150, BP 96/60 History of Present Illness The patient is a 72 year old male who presents to the Emergency Room with complaints of persistent low blood pressure and an elevated heart rate that started earlier today. The patient states that he was walking and started to feel light headed. He reports that he went home to have lunch at 1200 and he felt fine once he sat down. He states that when he stood up after lunch he began to feel light headed again. The patient reports that he took his own blood pressure and it was very low. He notes that he contacted his neighbor who is a registered nurse. She checked his blood pressure and received the same results. The patient states that he has been experiencing frequent urination and bowel movements since his back surgery on July 12, 2017. The patient denies any history of A-fib. The patient states he has been eating and drinking regularly. 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 He has a history of hearth catheters. The patient denies having any stents. He reports that he is on blood pressure medication. Source of History: patient Onset: earlier today Position: other (low BP, elevated heart rate) Timing: other (persistent) Associated Symptoms: + urinary symptoms (frequent urination) Note: Additional symptoms: light headedness, frequent bowel movements. Review of Systems See HPI for pertinent positives & negatives. A total of 10 systems reviewed and were otherwise negative. Past Medical & Surgical Medical Problems: (1) GERD (gastroesophageal reflux disease) (2) Hyperlipidemia (3) Hypertension (4) Lumbar stenosis with neurogenic claudication Surgical Problems: (1) Status post cardiac catheterization Family History Breast cancer MOTHER Cancer SISTER Dementia MOTHER Diabetes mellitus MOTHER Myocardial infarction FATHER Social History Smoking Status: Former Smoker Drug Use: none Marital Status: Housing Status: lives with significant other Occupation Status: retired Current/Historical Medications Scheduled Aspirin (Aspirin Ec), 81 MG PO DAILY Cholecalciferol (Vitamin D3), 1 TAB PO DAILY Esomeprazole Magnesium (Nexium), 40 MG PO PRN Rosuvastatin Calcium (Crestor), 40 MG PO DAILY Valsartan/Hctz (Diovan Hct 160MG/12.5MG), 1 TAB PO DAILY Scheduled PRN Oxycodone/Acetaminophen 5MG/325MG (Percocet 5MG/325MG), 1-2 TAB PO Q4H PRN for MODERATE TO SEVERE PAIN Allergies Coded Allergies: Tetracycline (Verified Allergy, Intermediate, Mood swings; rash, 07/27/17) Physical Exam Vital Signs Date Time Temp Pulse Resp B/P (MAP) Pulse Ox O2 Delivery O2 Flow Rate FiO2 07/28/17 00:04 36.7 58 18 110/71 97 Room Air 07/27/17 23:24 57 18 119/85 97 Room Air 07/27/17 23:09 97 Room Air 07/27/17 23:02 95 Room Air 07/27/17 22:41 136 07/27/17 22:27 36.9 153 18 114/82 97 Room Air Physical Exam CONSTITUTIONAL/VITAL SIGNS: Reviewed / noted above. GENERAL: Non-toxic in appearance. INTEGUMENTARY: Warm, dry, and [place]. HEAD: Normocephalic. EYES: without scleral icterus or trauma. ENT/OROPHARYNX: clear and moist. LYMPHADENOPATHY/NECK: Is supple without lymphadenopathy or meningismus. RESPIRATORY: Lungs clear and equal. CARDIOVASCULAR: Tachycardic rate and rhythm. GI/ABDOMEN: Soft and nontender. No organomegaly or pulsatile mass. No rebound or guarding. Normal bowel sounds. EXTREMITIES: Warm and well perfused. BACK: No CVA tenderness. NEUROLOGICAL: Intact without focal deficits. PSYCHIATRIC: normal affect. MUSCULOSKELETAL: Normally developed with good muscle tone. Medical Decision & Procedures ER Provider Diagnostic Interpretation: Radiology results as stated below per my review and radiologist interpretation: CHEST X-RAY: No pneumonia, no pneumothorax, no acute disease. Laboratory Results 07/27/17 22:40 Red Blood Count 4.47, Mean Corpuscular Volume 90.8, Mean Corpuscular Hemoglobin 32.0, Mean Corpuscular Hemoglobin Concent 35.2, Mean Platelet Volume 9.4, Neutrophils (%) (Auto) 65.2, Lymphocytes (%) (Auto) 22.1, Monocytes (%) (Auto) 10.9, Eosinophils (%) (Auto) 0.9, Basophils (%) (Auto) 0.2, Neutrophils # (Auto ) 6.89, Lymphocytes # (Auto) 2.33, Monocytes # (Auto) 1.15, Eosinophils # (Auto ) 0.10, Basophils # (Auto) 0.02 07/27/17 22:40 Test 07/27/17 22:40 White Blood Count 10.56 K/uL (4.8-10.8) Red Blood Count 4.47 M/uL (4.7-6.1) Hemoglobin 14.3 g/dL (14.0-18.0) Hematocrit 40.6 % (42-52) Mean Corpuscular Volume 90.8 fL (80-100) Mean Corpuscular Hemoglobin 32.0 pg (25-34) Mean Corpuscular Hemoglobin Concent 35.2 g/dl (32-36) Platelet Count 376 K/uL (130-400) Mean Platelet Volume 9.4 fL (7.4-10.4) Neutrophils (%) (Auto) 65.2 % Lymphocytes (%) (Auto) 22.1 % Monocytes (%) (Auto) 10.9 % Eosinophils (%) (Auto) 0.9 % Basophils (%) (Auto) 0.2 % Neutrophils # (Auto) 6.89 K/uL (1.4-6.5) Lymphocytes # (Auto) 2.33 K/uL (1.2-3.4) Monocytes # (Auto) 1.15 K/uL (0.11-0.59) Eosinophils # (Auto) 0.10 K/uL (0-0.5) Basophils # (Auto) 0.02 K/uL (0-0.2) RDW Standard Deviation 42.4 fL (36.4-46.3) RDW Coefficient of Variation 12.9 % (11.5-14.5) Immature Granulocyte % (Auto) 0.7 % Immature Granulocyte # (Auto) 0.07 K/uL (0.00-0.02) Prothrombin Time 11.3 SECONDS (9.0-12.0) Prothromb Time International Ratio 1.1 (0.9-1.1) Activated Partial Thromboplast Time 27.2 SECONDS (21.0-31.0) Partial Thromboplastin Ratio 1.0 Anion Gap 8.0 mmol/L (3-11) Est Creatinine Clear Calc Drug Dose 58.8 ml/min Estimated GFR () 75.9 Estimated GFR (Non- 65.5 BUN/Creatinine Ratio 15.8 (10-20) Calcium Level 9.2 mg/dl (8.5-10.1) Total Bilirubin 0.2 mg/dl (0.2-1) Direct Bilirubin < 0.1 mg/dl (0-0.2) Aspartate Amino Transf (AST/SGOT) 17 U/L (15-37) Alanine Aminotransferase (ALT/SGPT) 29 U/L (12-78) Alkaline Phosphatase 59 U/L (45-117) Total Creatine Kinase 110 U/L (39-308) Creatine Kinase MB 2.8 ng/ml (0.5-3.6) Creatine Kinase MB Ratio 2.5 (0-3.0) Troponin I 0.032 ng/ml (0-0.045) Total Protein 7.6 gm/dl (6.4-8.2) Albumin 3.7 gm/dl (3.4-5.0) Lipase 263 U/L (73-393) Thyroid Stimulating Hormone (TSH) 2.360 uIu/ml (0.300-4.500) Laboratory results as stated above per my review. Medications Administered Medications (Trade) Dose Ordered Sig/Dorys Route Start Time Stop Time Status Last Admin Dose Admin Sodium Chloride 1,000 ml @ 999 mls/hr Q1H1M STAT IV 07/27/17 22:45 07/27/17 23:45 DC 07/27/17 23:08 999 MLS/HR Diltiazem HCl (Cardizem Inj) 15 mg NOW STAT IV 07/27/17 22:49 07/27/17 22:50 DC 07/27/17 23:09 15 MG ECG Indication: tachycardia Rate (beats per minute): 130 Rhythm: SVT Findings: T-wave inversion (Lateral, inferior), no ectopy ED Course 2235: Previous medical records were reviewed. The patient was evaluated in room C9. A complete history and physical examination was performed. 2245: Sodium Chloride 1000 ml @ 999 mls/hr IV. 2249: Cardizem Inj 15 mg IV. 0015: On reevaluation, the patient is resting comfortably. I discussed the results and findings with the patient. He verbalized agreement of the treatment plan. He will be discharged home. Medical Decision the differential was considered includes acute myocardial infarction, acute coronary syndrome, myocarditis, pericarditis, pericardial effusions /tamponade, esophageal perforation, thoracic aortic dissection, pulmonary embolism, pneumonia, pneumothorax, pancreatitis, shingles, acute cholecystitis, perforated abdominal viscus. This is a 72-year-old male who presents to the ED with a chief complaint of palpitations and tachycardia. The patient reports that he was walking and became a little lightheaded. This occurred around noon. He checked his blood pressure and it seemed a little low and the 90s or low 100s and his heart rate was elevated. He came in for evaluation of this. His initial EKG revealed an SVT versus A. fib/A flutter with RVR with a rate in the 130 to 140 range. The patient was given some IV fluids and 50 mg of IV Cardizem. The patient subsequently converted into a sinus bradycardia at a rate of 40s to 50s. The patient denied any other significant symptoms. Denies any chest pains or shortness of breath. His CBC and complete metabolic panel were normal. Troponin was normal. Chest x-ray did not show acute disease. The patient was told results of his tests. He is asymptomatic. He is felt to be stable for discharge and outpatient follow-up. He was given a referral to cardiology services. Medication Reconcilliation Current Medication List: was personally reviewed by me Blood Pressure Screening Patient's blood pressure: Normal blood pressure Impression Primary Impression: SVT (supraventricular tachycardia) Scribe Attestation The scribe's documentation has been prepared under my direction and personally reviewed by me in its entirety. I confirm that the note above accurately reflects all work, treatment, procedures, and medical decision making performed by me. Departure Information Dispostion Home / Self-Care Referrals Jimbo Merino D.O. (PCP) Akira Sanders M.D. Patient Instructions My [facility] Additional Instructions Follow-up with cardiology services (Dr. Sanders ) listed. Return for any concerns or worsening.
--- NOTE | 2017-07-28 06:38 | DIAGNOSTIC IMAGING REPORT ---
CHEST ONE VIEW PORTABLE HISTORY: 72 years-old Male Evaluate Fever/Sepsis acute fever and hypotension with tachycardia COMPARISON: Chest radiograph 07/10/2017 TECHNIQUE: Portable semiupright AP view of the chest FINDINGS: Cardiomediastinal and hilar silhouettes are within normal limits. There is no pneumothorax, pleural effusion, focal airspace consolidation or overt pulmonary edema. The bones of the chest appear grossly intact. IMPRESSION: No acute cardiopulmonary process. The above report was generated using voice recognition software. It may contain grammatical, syntax or spelling errors. Electronically signed by: Morgan Perez M.D. 07/28/2017 6:37 AM Dictated Date/Time: 07/28/2017 6:36 AM
== END 2017-07-28 00:32 | disposition home or self-care (01) ==
LOC: C.EDB 22:25 → C.EDC 07-28 00:32
DX: I47.1 Supraventricular tachycardia (principal); R42 Dizziness and giddiness; I10 Essential (primary) hypertension; K21.9 Gastro-esophageal reflux disease without esophagitis; I25.10 Atherosclerotic heart disease of native coronary artery without angina pectoris; Z87.891 Personal history of nicotine dependence; Z79.82 Long term (current) use of aspirin; Z79.899 Other long term (current) drug therapy

== ENCOUNTER 2023-08-01 05:57 | Inpatient (IN) ==
--- NOTE | 2023-07-25 09:02 | Anesthesiology Consultation ---
Date of Service July 25, 2023 Assessment & Plan (1) Encounter for pre-operative examination: - Infectious disease screening: Per assessment on 07/24/23: No known infectious disease contacts or current infectious disease symptoms. No noted Covid positive test result in past 90 days. - S/P L3-4 decompression/fusion (07/12/17): Grade view 2, MAC#4, ETT 8.0 at [facility]. Per post-op anesthesia progress note 07/12/2017, "After taking patient ti [sic] ICU for his recovery time he went into a regular, narrow complex svt- hr in 140's- Otherwise not symptomatic. Given adenosine 6 mg IV which broke it for a couple minutes but it again returned. Adenosine 12 mg IV given with good pause and result to heart rate 70's. Patient had had a very short selfLimited run in the OR after induction and from talking to him has probably had in the past. Gave 2 doses of esmolol 10 mg IV and spoke with Dr. Friend from medicine who is being consulted and he requested a 12 lead ECG. Patient will be sent to a monitored bed when his recovery is complete." > Patient subsequently established and has since been monitored by [facility] cardiology outpatient* - Recent hospitalization (07/13-07/14/23): "presents to the ER today with complaints of tingling and numbness around the lips, hearing in and headache which started this morning. Patient states his story dates back to last Friday when he mowed grass in his home between 3 and 8:00 p.m. At around 11:00 p.m, he states he started having some cramps in his legs which went up to his back. The following day, he went to an urgent care center where he was prescribed prednisone which he states did not help much. He subsequently went to see his PCP on Friday and was prescribed muscle relaxant, Baclofen 3 times a day. He states he took a dose of baclofen around 11:30 p.m. last night and then took a 2nd dose about 4 hours after. He states it was his anniversary and he and his were out of town and had some drinks with their friends last night before going to bed. On their way back home today, he noted some tingling and numbness around his lips and states he had some hearing in and some headache which prompted him to come to the emergency room for further evaluation. He denied any facial droop but states he is speech was slightly slurry.. On arrival in the emergency room, patient had routine vital signs checked which was unremarkable except for BP 207/112. He had routine blood work done including CBC and blood chemistries which were essentially unremarkable. Urinalysis was unremarkable. Acetaminophen level was 10.3 and salicylate level less than 5. Alcohol level was less than 10. UDS was negative. Patient had a CT scan of the head done which showed no acute intracranial abnormality. CT perfusion was essentially unremarkable. CT angiogram of the head and neck was also on remarkable. While in the ER, there was some concerns for stroke/TIA and patient had above radiologic studies done. ER physician states she spoke with tele stroke neurologist and patient was recommended to get an MRI of the brain done and observed in the hospital. Patient was also given a 1 L bolus of normal saline and 1 dose of p.o. aspirin in the ER.. As noted above, mri brain was w/o stroke. Neuro consulted they are not concerned for stroke or tia. MRI L spine with chronic degenerative changes. PT assessed patient, stable for dc home. Return parameters provided to patient and " - Cardiology visit (07/24/23): "Since last visit, was admitted at [facility] on 07/13/23 with numbness and tingling around lips and face. CT/CTA and MRI of brain negative. Thought to be due to side effects from baclofen and alcohol. Discharged on 07/14/23. Has not had any recurrent episodes since.. Had preop labs, EKG, chest x-ray on 07/22 which were unremarkable.. PSVT (paroxysmal supraventricular tachycardia)- asymptomatic, denies palpitations.. continue metoprolol succinate 12.5 mg daily.. HTN, goal below 140/90- controlled.. Preoperative cardiovascular examination- patient asymptomatic, no anginal symptoms, euvolemic on exam.. Per [place] Criteria, patient is at low risk for perioperative complications, no further cardiac testing recommended at this time, patient can proceed with surgery as planned from cardiac standpoint.. recommend to hold aspirin 7 days prior to surgery to minimize bleeding risk, may resume when cleared by surgeon" - Case + recent hospitalization reviewed with Dr. Mack. He feels nothing further needed preoperatively from his perspective pending upcoming PCP preop evaluation. Patient acceptable risk for surgery pending PCP preop appt ([facility], 07/28). Chart Review Chart Review: Patient NOT seen in Pre Admission Testing History Surgery Operation Date: 08/01/23 07:45 Proposed Procedures p L2-L3 Decompression and Fusion, L3-L4 Hardware Removal, Spinal Cord Monitoring - Matthew Ortega DO Height/Weight Height: 5 ft 9 in Weight: 80.739 kg Allergies Allergy/AdvReac Type Severity Reaction Status Date / Time tetracycline Allergy Intermediate Mood Verified 07/25/23 08:58 swings, rash Medications Home Medications Medication Instructions Recorded Confirmed Last Taken aspirin 81 mg capsule 81 mg PO HS 09/16/22 07/24/23 Unknown esomeprazole magnesium 20 mg 20 mg PO DAILY PRN Acid Reflux 07/24/23 07/24/23 Unknown capsule,delayed release (Nexium) melatonin 10 mg tablet 10 mg PO HS PRN Sleep 07/24/23 07/24/23 Unknown metoprolol succinate 25 mg 12.5 mg PO HS 07/24/23 07/24/23 Unknown tablet,extended release 24 hr tadalafil 10 mg tablet 10 mg PO DAILY PRN Sexual Activity 07/24/23 07/24/23 Unknown Past Medical History Medical History BPH (benign prostatic hyperplasia) Cardiac murmur Echo 09/2017: Mild MR Hx of gastroesophageal reflux (GERD) Nexium OTC PRN Hx of supraventricular tachycardia Dx after 1st back surgery Follows with Dr. Becker/[facility] Hypertension Past Surgical History Surgical History History of lumbar surgery L3-4 decompression/fusion (07/12/17): Grade view 2, MAC#4, ETT 8.0 at [facility]. Per post-op anesthesia progress note 07/12/2017, "After taking patient ti [sic] ICU for his recovery time he went into a regular, narrow complex svt- hr in 140's- Otherwise not symptomatic. Given adenosine 6 mg IV which broke it for a couple minutes but it again returned. Adenosine 12 mg IV given with good pause and result to heart rate 70's. Patient had had a very short selfLimited run in the OR after induction and from talking to him has probably had in the past. Gave 2 doses of esmolol 10 mg IV and spoke with Dr. Friend from medicine who is being consulted and he requested a 12 lead ECG. Patient will be sent to a monitored bed when his recovery is complete." Patient subsequently established and has since been monitored by [facility] cardiology outpatient* Hx of arthroscopy of shoulder Left RCR Hx of bilateral cataract extraction Hx of cardiac catheterization 1978- no stents - no stents Approximately 15 years ago- no stents Hx of colonoscopy Hx of thumb surgery R/L hands Social History Smoking Status: Former smoker Do You Dip or Chew Tobacco: No Smoking End Date: Quit 17 years ago Hx Alcohol Use: Yes Alcohol type: beer alcohol intake frequency: other (2-3 per night) Hx Substance Use: No substance use type: does not use Lab Results Anesthesia Preop Results Results Anesthesia Widget: WBC 6.74 K/ul (4.8-10.8) 07/22/23 Hgb 15.8 g/dl (14.0-18.0) 07/22/23 Hct 46.3 % (42.0-52.0) 07/22/23 Plt 251 K/uL (130-400) 07/22/23 Na 140 mmol/L (136-145) 07/22/23 K 4.6 mmol/L (3.5-5.1) 07/22/23 Cl 106 mmol/L (98-107) 07/22/23 CO2 30 mmol/L (21-32) 07/22/23 BUN 15 mg/dl (6-23) 07/22/23 Creat 0.94 mg/dl (0.6-1.4) 07/22/23 Glucose Level 118 mg/dl (70-99(Fasting)) H 07/22/23 PT 11.2 Seconds (9.0-12.0) 07/22/23 PTT 28.3 Seconds (21.0-31.0) 07/22/23 INR 1.0 (0.9-1.1) 07/22/23 Urine Color Yellow 07/22/23 Urine Appearance Clear (Clear) 07/22/23 Urine pH 5.5 (4.5-7.5) 07/22/23 Urine Specific [place] 1.012 (1.000-1.030) 07/22/23 Urine Protein Negative (Negative) 07/22/23 Urine Glucose (UA) Negative (Negative) 07/22/23 Urine Ketones Negative (Negative) 07/22/23 Urine Blood Trace (Negative) H 07/22/23 Urine Nitrite Negative (Negative) 07/22/23 Urine Bilirubin Negative (Negative) 07/22/23 Urine Urobilinogen Negative (Negative) 07/22/23 Urine Leukocyte Esterase Negative (Negative) 07/22/23 Urine WBC (Auto) 0 /hpf (0-5) 07/22/23 Urine RBC (Auto) 0-4 /hpf (0-4) 07/22/23 Urine Hyaline Casts (Auto) 0 /lpf (0-5) 07/22/23 Urine Epithelial Cells (Auto) 0-5 /lpf (0-5) 07/22/23 Urine Bacteria (Auto) Negative (Negative) 07/22/23 Blood Type O Negative 07/22/23 Antibody Screen NEGATIVE 07/22/23 Testing Electrocardiogram Date: 07/22/23 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 Voltage criteria for LVH. Chest X-Ray Date: 07/22/23 Findings: + NAD Echocardiogram Date: 09/10/17 LVEF 55-59%.Grade 1 diastolic dysfunction. Mild MR. Trivial TR present. Signal is inadequate to calculate PASP. Stress Test Date: 08/23/19 Type: exercise Stress echo is negative for inducible ischemia. Exercise capacity is above average. 112% MPHR. 11.3 METS. Rest study: LVEF 55-59%. Grade 1 diastolic dysfunction. Mild MR. Other Testing Brain MRI Date: 07/14/23 The scalp and calvarium are normal. The posterior fossa is unremarkable. The pituitary and sella are normal. No abnormal signal on diffusion weighted images to suggest acute cerebral infarction. The susceptibility weighted sequences reveal no evidence of acute or chronic hemorrhage. The ventricles are normal in size and configuration without evidence of hydrocephalus. Normal flow voids in the carotid and basilar arteries. Scattered paranasal sinus mucosal thickening/retention cysts. CTA Head/neck Date: 07/13/23 No large vessel occlusion. No high-grade intracranial or extracranial stenosis. No core infarct or penumbra on perfusion imaging. CT Head Perfusion Date: 07/13/23 Right Common Carotid Artery: No significant stenosis. Right Proximal Internal Carotid Artery: Mild atherosclerosis without significant stenosis. Mid and Distal Internal Carotid Artery: No significant stenosis. Left Common Carotid Artery: No significant stenosis. Left Proximal Internal Carotid Artery: Mild atherosclerosis without significant stenosis. Mid and Distal Internal Carotid Artery: No significant stenosis. RIGHT VERTEBRAL ARTERY: Mild stenosis at the origin. Otherwise, normal in course and caliber. LEFT VERTEBRAL ARTERY: Mild stenosis at the origin. Otherwise, normal in course and caliber. No evidence of dissection or pseudoaneurysm. OTHER FINDINGS: Mild emphysema at the lung apices. Spondylotic changes in the cervical spine. Right Internal Carotid Artery: Atherosclerosis without high-grade stenosis. Left Internal carotid artery: Atherosclerosis without high-grade stenosis. No aneurysm or evidence of shunting vascular malformation identified within the limits of this study technique.
[2023-08-01] MEDS ORDERED: ceFAZolin 2000MG 2,000 MG/15 ML SYR IV SCH (06:00)
[2023-08-01] MEDS ORDERED: ACETAMINOPHEN 500 MG TAB PO SCH (06:00)
[2023-08-01] MEDS ORDERED: LR 15ML/HR IV SCH (06:00)
[2023-08-01] MEDS ORDERED: CeleBREX 200 MG CAP PO SCH (06:00)
[2023-08-01] MEDS ORDERED: LR 60ML/HR IV SCH (06:00)
[2023-08-01] MEDS ORDERED: GABAPENTIN 300 MG CAP PO SCH (06:00)
[2023-08-01] MEDS ORDERED: ceFAZolin 330 MG/ML 1 GM VIAL ONE (07:03)
[2023-08-01] MEDS ORDERED: BUPIVACAINE/EPINEPHRINE 0.25% 1:200,000 30 ML VIAL ONE (07:03)
[2023-08-01] MEDS ORDERED: fentaNYL citrate PF 100 MCG/2 ML VIAL ONE (07:04)
[2023-08-01] MEDS ORDERED: MIDAZOLAM HCL 1 MG/ML 2ML VIAL ONE (07:04)
[2023-08-01] MEDS ORDERED: ONDANSETRON INJ 2 MG/ML 2 ML VIAL ONE (07:04)
[2023-08-01] MEDS ORDERED: DEXAMETHASONE SOD INJ 4 MG/ML VIAL ONE (07:04)
[2023-08-01] MEDS ORDERED: PROPOFOL IV EMULSION 10 MG/ML 20 ML VIAL IV ONE (07:04)
[2023-08-01] MEDS ORDERED: ROCURONIUM BROMIDE 10 MG/ML 5 ML VIAL IV ONE ×10 (07:04→09:12)
[2023-08-01] MEDS ORDERED: LIDOCAINE 2% 2 ML VIAL/AMP(20MG/ML) INFIL ONE ×2 (07:04)
--- NOTE | 2023-08-01 07:41 | History & Physical Bridge Note ---
Date of Service August 01, 2023 History & Physical Bridge Note I have examined the patient, reviewed the History & Physical and in the interval since the performance of the History & Physical I have noted the following changes of clinical significance: no changes noted
--- NOTE | 2023-08-01 07:42 | History & Physical Report ---
Date of Service August 01, 2023 Assessment & Plan (1) Lumbar stenosis with neurogenic claudication: Plan: L2-L3 decompression and fusion, L3-L4 hardware removal History of Present Illness Chief Complaint: Back and leg pain Primary Care Provider: Maty Rodriguez This is a 78-year-old male who presents with chronic persistent back and leg pain after failing course of nonoperative care is here for surgical invention. Allergies Allergy/AdvReac Type Severity Reaction Status Date / Time tetracycline Allergy Intermediate Mood Verified 08/01/23 06:22 swings, rash Home Medications Medication Instructions Recorded Confirmed Type aspirin 81 mg capsule 81 mg PO HS 09/16/22 08/01/23 History esomeprazole magnesium 20 mg 20 mg PO DAILY PRN Acid Reflux 07/24/23 08/01/23 History capsule,delayed release (Nexium) melatonin 10 mg tablet 10 mg PO HS PRN Sleep 07/24/23 08/01/23 History metoprolol succinate 25 mg 12.5 mg PO HS 07/24/23 08/01/23 History tablet,extended release 24 hr tadalafil 10 mg tablet 10 mg PO DAILY PRN Sexual Activity 07/24/23 08/01/23 History Past Med/Surg History Medical History BPH (benign prostatic hyperplasia) Cardiac murmur Echo 09/2017: Mild MR Hx of gastroesophageal reflux (GERD) Nexium OTC PRN Hx of supraventricular tachycardia Dx after 1st back surgery Follows with Dr. Becker/[facility] Surgical History History of lumbar surgery L3-4 decompression/fusion (07/12/17): Grade view 2, MAC#4, ETT 8.0 at [facility]. Per post-op anesthesia progress note 07/12/2017, "After taking patient ti [sic] ICU for his recovery time he went into a regular, narrow complex svt- hr in 140's- Otherwise not symptomatic. Given adenosine 6 mg IV which broke it for a couple minutes but it again returned. Adenosine 12 mg IV given with good pause and result to heart rate 70's. Patient had had a very short selfLimited run in the OR after induction and from talking to him has probably had in the past. Gave 2 doses of esmolol 10 mg IV and spoke with Dr. Friend from medicine who is being consulted and he requested a 12 lead ECG. Patient will be sent to a monitored bed when his recovery is complete." Patient subsequently established and has since been monitored by [facility] cardiology outpatient* Hx of arthroscopy of shoulder Left RCR Hx of bilateral cataract extraction Hx of cardiac catheterization 1978- no stents - no stents Approximately 15 years ago- no stents Hx of colonoscopy Hx of thumb surgery R/L hands Social History Smoking Status: Former smoker Smoking End Date: Quit 17 years ago; Second Hand Exposure: No; Do You Dip or Chew Tobacco: No; Tobacco Cessation Education Requested by Patient: No Hx Alcohol Use: Yes Alcohol type: beer Hx Substance Use: No Preferred Language: Georgian Communication Ability: Effective Sourcing Internship Required: No Beliefs That Will Affect Care: None Current Living Situation: Spouse Other Information That Helps Us Care for You: No Feels Safe at Home: Yes Safety Concerns: Feels Safe At This Time Assistive Devices: None Physical Exam Physical Exam: Patient is alert and oriented Heart regular rhythm lungs clear Results & Data Results & Data Vital Signs (Past 12 Hours) Vital Signs Temp Pulse Resp BP Pulse Ox O2 Del Method 08/01/23 06:24 36.9 C 63 18 168/83 H 99 Room Air
[2023-08-01] MEDS ORDERED: ePHEDrine sulfate 50 MG/5 ML SYR ONE (08:09)
[2023-08-01] MEDS ORDERED: SUGAMMADEX SODIUM 200 MG/2 ML VIAL IV ONE (08:12)
--- NOTE | 2023-08-01 08:26 | Anesthesiology Consultation ---
Date of Service August 01, 2023 Assessment & Plan Chart Review Chart Review: Acceptable Risk for Surgery Consults Requested none History Surgery Operation Date: 08/01/23 07:45 Proposed Procedures p L2-L3 Decompression and Fusion, L3-L4 Hardware Removal, Spinal Cord Monitoring - Matthew Ortega DO Height/Weight Height: 5 ft 9 in Weight: 79.8 kg Allergies Allergy/AdvReac Type Severity Reaction Status Date / Time tetracycline Allergy Intermediate Mood Verified 08/01/23 06:22 swings, rash Medications Home Medications Medication Instructions Recorded Confirmed Last Taken aspirin 81 mg capsule 81 mg PO HS 09/16/22 08/01/23 07/25/23 esomeprazole magnesium 20 mg 20 mg PO DAILY PRN Acid Reflux 07/24/23 08/01/23 Unknown capsule,delayed release (Nexium) melatonin 10 mg tablet 10 mg PO HS PRN Sleep 07/24/23 08/01/23 07/31/23 22:00 metoprolol succinate 25 mg 12.5 mg PO HS 07/24/23 08/01/23 07/31/23 22:00 tablet,extended release 24 hr tadalafil 10 mg tablet 10 mg PO DAILY PRN Sexual Activity 07/24/23 08/01/23 Unknown Active Medications Generic Name Dose Route Start Last Admin Trade Name Freq PRN Reason Stop Dose Admin Acetaminophen 1,000 mg 08/01/23 06:00 08/01/23 06:50 Acetaminophen 500 Mg Tab PO 08/01/23 18:00 1,000 mg PREOP LIBERTY Administration Celecoxib 200 mg 08/01/23 06:00 08/01/23 06:50 Celebrex 200 Mg Cap PO 08/01/23 18:00 200 mg PREOP LIBERTY Administration Gabapentin 300 mg 08/01/23 06:00 08/01/23 06:50 Gabapentin 300 Mg Cap PO 08/01/23 18:00 300 mg PREOP LIBERTY Administration Lactated Ringer's 1,000 mls @ 60 mls/hr 08/01/23 06:00 08/01/23 06:47 Lr IV 08/01/23 22:39 Not Given .[id number] LIBERTY Cefazolin Sodium 2,000 mg in 15 mls @ 3.75 mls/min 08/01/23 06:00 08/01/23 07:48 Ancef 2000mg IV 08/01/23 18:00 3.75 mls/min PREOP LIBERTY Administration Protocol Lactated Ringer's 1,000 mls @ 15 mls/hr 08/01/23 06:00 08/01/23 07:45 Lr IV 08/02/23 05:59 Infused .Q24H LIBERTY Infusion NPO Date Last Intake of Fluids: 07/31/23 Time Last Intake of Fluids: 22:00 Date Last Intake of Solids: 07/31/23 Time Last Intake of Solids: 22:00 Past Medical History Medical History BPH (benign prostatic hyperplasia) Cardiac murmur Echo 09/2017: Mild MR Hx of gastroesophageal reflux (GERD) Nexium OTC PRN Hx of supraventricular tachycardia Dx after 1st back surgery Follows with Dr. Becker/[facility] Hypertension Past Surgical History Surgical History History of lumbar surgery L3-4 decompression/fusion (07/12/17): Grade view 2, MAC#4, ETT 8.0 at [facility]. Per post-op anesthesia progress note 07/12/2017, "After taking patient ti [sic] ICU for his recovery time he went into a regular, narrow complex svt- hr in 140's- Otherwise not symptomatic. Given adenosine 6 mg IV which broke it for a couple minutes but it again returned. Adenosine 12 mg IV given with good pause and result to heart rate 70's. Patient had had a very short selfLimited run in the OR after induction and from talking to him has probably had in the past. Gave 2 doses of esmolol 10 mg IV and spoke with Dr. Friend from medicine who is being consulted and he requested a 12 lead ECG. Patient will be sent to a monitored bed when his recovery is complete." Patient subsequently established and has since been monitored by [facility] cardiology outpatient* Hx of arthroscopy of shoulder Left RCR Hx of bilateral cataract extraction Hx of cardiac catheterization 1978- no stents - no stents Approximately 15 years ago- no stents Hx of colonoscopy Hx of thumb surgery R/L hands Social History Smoking Status: Former smoker Do You Dip or Chew Tobacco: No Smoking End Date: Quit 17 years ago Hx Alcohol Use: Yes Alcohol type: beer alcohol intake frequency: other (2-3 per night) Alcohol Intake Frequency Comment: 2-3 per night Hx Substance Use: No substance use type: does not use Physical Exam Vital Signs Last Vital Signs Temp 36.9 C 08/01/23 06:24 Pulse 63 08/01/23 06:24 Resp 18 08/01/23 06:24 BP 168/83 H 08/01/23 06:24 Pulse Ox 99 08/01/23 06:24 O2 Del Method Room Air 08/01/23 06:24
[2023-08-01] MEDS ORDERED: ONDANSETRON INJ 2 MG/ML 2 ML VIAL IV PRN ×2 (08:27→11:56)
[2023-08-01] MEDS ORDERED: PROMETHAZINE HCL 12.5 MG in SODIUM CHLORIDE 0.9% 50 ML IV PRN ×2 (08:27→11:56)
[2023-08-01] MEDS ORDERED: fentaNYL citrate PF 100 MCG/2 ML VIAL IV PRN (08:27)
[2023-08-01] MEDS ORDERED: HYDROmorphone INJ 2 MG/ML SYR/VIAL IV PRN (08:27)
[2023-08-01] MEDS ORDERED: ePHEDrine sulfate 50 MG/ML AMP IV PRN (08:27)
[2023-08-01] MEDS ORDERED: ATROPINE SULFATE 0.1 MG/ML 10ML SYR IV PRN (08:27)
[2023-08-01] MEDS ORDERED: FLOSEAL HEMOSTATIC MATRIX 10ML TOP ONE (09:06)
--- NOTE | 2023-08-01 09:27 | Operative Report ---
Post Operative Report Pre & Post Diagnosis Operation Date: 08/01/23 07:45 Pre-Op Diagnosis: Lumbar stenosis with neurogenic claudication Herniated nucleus pulposus L2-L3 Post-Op Diagnosis: Same I identified the patient and participated in the time-out.: Yes Procedure Operation Date: 08/01/23 07:45 Actual Procedures #1 reviewed removal of posterior instrumentation L3-L4. #2 exploration of fusion L3-L4 #3 lumbar decompression bilaterally facetectomies and foraminotomies L2-L3. #4 posterior spinal fusion L2-L3. #5 placement posterior instrumentation L2-L4. #6 interbody fusion L2-L3 per #7 placement spiral 13 x 26 mm at L2-L3 per #8 placement locally harvested morselized autograft and posterior gutters. #9 placement of I factor in the interbody space and infuse collagen sponge in the posterior gutters. Surgeon Matthew Ortega, Belt Sander Jonathan Rose Estimated Blood Loss 100 Findings Consistent with Post-Op Diagnosis Specimens None Indications This is a 78-year-old male who presents above-mentioned diagnosis after failing course of nonoperative care is here for surgical invention Description of Procedure Patient met with identified informed consent obtained. Patient was then taken to the operative suite underwent patient placed in a prone position on the [place] table top Tano frame. All bony prominences well-padded eyes inspected to ensure no external precipice monitor at this point lumbar spine was prepped and draped in a sterile fashion. Sharp dissection with assistance of Bovie cautery form down to exposing the lamina and transverse process of L2 and instrumentation L3-L4 bilaterally. Then proceeded with the hardware bilaterally explored the fusion mass noted to be mature and intact. Informed complete laminectomy of L2 including bilateral male facetectomies and foraminotomies and complete facetectomy on the left to address extraforaminal foraminal disc herniation. After complete decompression pedicle screws were placed L2-L3-L4 bilaterally with assistance of fluoroscopy and processes are placed. By way of a trans foraminal approach on the left complete discectomy of L2-L3 was performed endplates guarded to subcortical bleeding bone and a 13 x 26 mm Spira cage with I factor tapped in position. The rods were then compressed locked in final position bilaterally. The transverse processes of L2 and L3 burred to subcortical bone. Infuse collagen sponge, and locally harvested morselized autograft placed in posterior gutters. 15 round ARPIT inserted. Incision was then closed with 1 Vicryl to fascia 2-0 Vicryl subcutaneously and 4 Monocryl for fascial closure. Steri-Strips sterile dressings placed. Patient waken taken to PACU in stable condition. Please note Jonathan Rose was present at the entire procedure involved in patient positioning complex course of the surgery and final skin closure. I attest to the content of the Intraoperative Record and any orders documented therein. Any exceptions are noted below.
--- NOTE | 2023-08-01 10:32 | Fluoroscopy Report ---
FL lumbar spine 2-3V CLINICAL HISTORY: L2-L3 DECOMPRESSION AND FUSION L3-L4 HW REMOVAL TECHNIQUE: 2 views were obtained with the C-arm in the OR with the above procedure. Total fluoroscopy time was 7.7 seconds. Radiation dose was 4.15 mGy. Comparison: Comparison is made to lumbar spine radiographs 07/12/2017 FINDINGS/IMPRESSION: Intraoperative images were obtained of L2-L4 decompression and fusion and hardwa re replacement. Please correlate with intraoperative fluoroscopy and operative report. ACT 112: Negative or not required by law. Electronically signed by: Abdelrahman Araujo M.D. 08/01/2023 10:31 AM
--- NOTE | 2023-08-01 10:38 | Anesthesiology Progress Note ---
Date of Service August 01, 2023 Anesthesia Post Procedure Vital Signs Vital Signs: Temp Pulse Pulse Resp BP Pulse Ox O2 Del Method 08/01/23 10:35 64 21 122/92 95 Room Air 08/01/23 10:25 65 12 118/68 94 Room Air 08/01/23 10:05 66 13 121/71 97 Oxymask 08/01/23 10:15 37.2 C 68 17 143/80 H 93 Room Air 08/01/23 09:55 73 17 141/72 H 98 Oxymask 08/01/23 09:47 36.1 C L 72 13 143/72 H 93 Oxymask 08/01/23 06:24 36.9 C 63 18 168/83 H 99 Room Air O2 Flow Rate 08/01/23 10:35 08/01/23 10:25 08/01/23 10:05 3 08/01/23 10:15 08/01/23 09:55 3 08/01/23 09:47 3 08/01/23 06:24 Pain Intensity Back: Pain Intensity: 2 Transfer of Care Handoff Completed per policy Notes Mental Status: alert / awake / arousable and participated in evaluation Patient Amnestic to Procedure: Yes Nausea / Vomiting: adequately controlled Pain: adequately controlled Airway Patency, RR, SpO2: stable & adequate BP & HR: stable & adequate Hydration State: stable & adequate Anesthetic Complications: no major complications apparent
[2023-08-01] MEDS ORDERED: FAMOTIDINE 20 MG TAB PO PRN (11:56)
[2023-08-01] MEDS ORDERED: DO NOT ADMINISTER FLU VACCINE PRN (11:56)
[2023-08-01] MEDS ORDERED: LORazepam 0.5 MG TAB PO PRN (11:56)
[2023-08-01] MEDS ORDERED: ACETAMINOPHEN 500 MG TAB PO PRN (11:56)
[2023-08-01] MEDS ORDERED: hydrOXYzine HCl 25 MG TAB PO PRN (11:56)
[2023-08-01] MEDS ORDERED: bisacodyL 10 MG SUPP PR PRN (11:56)
[2023-08-01] MEDS ORDERED: diphenhydrAMINE Capsule 25 MG CAP PO PRN (11:56)
[2023-08-01] MEDS ORDERED: PANTOprazole 40 MG TAB PO PRN (11:56)
[2023-08-01] MEDS ORDERED: HYDROmorphone INJ 0.5 MG/0.5 ML SYR IV PRN (11:56)
[2023-08-01] MEDS ORDERED: ACETAMINOPHEN 1,000 MG/100 ML VIAL IV PRN (11:56)
[2023-08-01] MEDS ORDERED: LORazepam 2 MG/1 ML VIAL IV PRN (11:56)
[2023-08-01] MEDS ORDERED: MAGNESIUM HYDROXIDE SUSP 30 ML UDC PO PRN (11:56)
[2023-08-01] MEDS ORDERED: DO NOT ADMINISTER PNEUMOCOCCAL VACCINE PRN (11:56)
[2023-08-01] MEDS ORDERED: ONDANSETRON 4 MG OD TAB PO PRN (11:56)
[2023-08-01] MEDS ORDERED: NALOXONE HCL 0.4 MG/1 ML VIAL/CARP IV PRN (11:56)
[2023-08-01] MEDS ORDERED: ALUMINUM/MAGNESIUM SUSP 30 ML UDC PO PRN (11:56)
[2023-08-01] MEDS ORDERED: HYDROmorphone INJ 1 MG/ML SYRINGE IV PRN (11:56)
[2023-08-01] MEDS ORDERED: SOD PHOSPHATE/SOD BIPHOSPHATE ENEMA 132 ML BTL PR PRN (11:56)
[2023-08-01] MEDS ORDERED: METOCLOPRAMIDE HCL INJ 5 MG/ML 2 ML VIAL IV PRN (11:56)
--- NOTE | 2023-08-01 12:07 | Hospitalist Consultation ---
Date of Consultation August 01, 2023 Assessment & Plan (1) Lumbar stenosis with neurogenic claudication: - Pain management, bowel regimen and DVT ppx per the primary team - PT/OT consults, pt is planning on outpatient therapy - Follow am CBC to monitor for acute blood loss, hgb 15.8 on 07/22 (2) Hypertension: - Pt may continue metoprolol succinate 12.5 mg HS (3) Hyperlipidemia: - Chronic, stable - Continue rosuvastatin 40 mg HS (4) GERD (gastroesophageal reflux disease): - Chronic, stable DVT ppx: teds, scds Lines: 2 PIV GI/FEN: HH diet CODE: FULL Thank you for involving us in the care of Mr. Plata. Please do not hesitate to call with questions or concerns. At this time medicine service will follow along. Supervising Physician Co-Signing Physician Notes 78-year-old male with PMHx of supraventricular tachycardia, HTN, GERD, mild mitral regurgitation, BPH who presents to the hospital for lumbar decompression fusion Patient reports only surgical site pain which is controlled Clean dressing over surgical site with drain in situ, chao in situ Pain control Check Hb in AM Continue home meds Activity per Primary Surgeon. PT/OT History of Present Illness Reason for Consultation: Medical management Requesting Physician: Dr. Ortega Attending Physician: Matthew Ortega, DO History of Present Illness This is a 78-year-old male with PMHx of supraventricular tachycardia, HTN, GERD, mild mitral regurgitation, BPH who presents to the hospital for routine 2-3 lumbar decomp[address] fusion by Dr. Ortega, he has previously underwent back surgery with him L3-L4 in 2017. Pt is sitting with his at bedside, reports doing very well at this time. He came up from PACU only 20 minutes prior to my visit with him. He denies back pain presently, can move his legs and denies any numbness/tingling. He has tolerated fluids without difficulty, denies nausea, vomiting, last bowel movement was yesterday. Plans to go home with home health services if needed. Allergies Allergy/AdvReac Type Severity Reaction Status Date / Time tetracycline Allergy Intermediate Mood Verified 08/01/23 06:22 swings, rash Home Medications Medication Instructions Recorded Confirmed Type aspirin 81 mg capsule 81 mg PO HS 09/16/22 08/01/23 History esomeprazole magnesium 20 mg 20 mg PO DAILY PRN Acid Reflux 07/24/23 08/01/23 History capsule,delayed release (Nexium) melatonin 10 mg tablet 10 mg PO HS PRN Sleep 07/24/23 08/01/23 History metoprolol succinate 25 mg 12.5 mg PO HS 07/24/23 08/01/23 History tablet,extended release 24 hr tadalafil 10 mg tablet 10 mg PO DAILY PRN Sexual Activity 07/24/23 08/01/23 History olopatadine 0.2 % eye drops 1 drp ophthalmic (eye) DAILY 08/01/23 08/01/23 History (Pataday Once Daily Relief) potassium chloride 10 mEq 10 meq PO HS 08/01/23 08/01/23 History tablet,extended release(part/cryst) (Klor-Con M) rosuvastatin 40 mg tablet 40 mg PO HS 08/01/23 08/01/23 History Patient History Medical History BPH (benign prostatic hyperplasia) Cardiac murmur Echo 09/2017: Mild MR Hx of gastroesophageal reflux (GERD) Nexium OTC PRN Hx of supraventricular tachycardia Dx after 1st back surgery Follows with Dr. Becker/[facility] Hypertension Surgical History History of lumbar surgery L3-4 decompression/fusion (07/12/17): Grade view 2, MAC#4, ETT 8.0 at [facility]. Per post-op anesthesia progress note 07/12/2017, "After taking patient ti [sic] ICU for his recovery time he went into a regular, narrow complex svt- hr in 140's- Otherwise not symptomatic. Given adenosine 6 mg IV which broke it for a couple minutes but it again returned. Adenosine 12 mg IV given with good pause and result to heart rate 70's. Patient had had a very short selfLimited run in the OR after induction and from talking to him has probably had in the past. Gave 2 doses of esmolol 10 mg IV and spoke with Dr. Friend from medicine who is being consulted and he requested a 12 lead ECG. Patient will be sent to a monitored bed when his recovery is complete." Patient subsequently established and has since been monitored by [facility] cardiology outpatient* Hx of arthroscopy of shoulder Left RCR Hx of bilateral cataract extraction Hx of cardiac catheterization 1978- no stents - no stents Approximately 15 years ago- no stents Hx of colonoscopy Hx of thumb surgery R/L hands Social History Smoking Status: Former smoker Smoking End Date: Quit 17 years ago; Second Hand Exposure: No; Do You Dip or Chew Tobacco: No; Tobacco Cessation Education Requested by Patient: No Hx Alcohol Use: Yes Alcohol type: beer Hx Substance Use: No Preferred Language: Syriac Communication Ability: Effective Linen Tech Required: No Beliefs That Will Affect Care: None Current Living Situation: Spouse Other Information That Helps Us Care for You: No Feels Safe at Home: Yes Safety Concerns: Feels Safe At This Time Assistive Devices: None Review of Systems Review of Systems: Constitutional: No fever, sweats or chills Eyes: No diplopia, no worsening or blurred vision ENT: normal hearing, no trouble swallowing Respiratory: No cough, sputum, dyspnea at rest or on exertion Cardiovascular: No chest pain, tightness or palpitations Abdomen: No pain, nausea, vomiting, diarrhea or constipation Musculoskeletal: No joint pain, calf pain, swelling Neurologic: No weakness, numbness/tingling, or balance problems Psychiatric: No anxiety or depression Skin: No rash or itch Physical Exam Physical Exam: General: awake, alert, no apparent distress Head: Normocephalic, atraumatic ENT: PERRL, EOMI, no pharyngeal exudate, mucous membranes moist Chest: Clear to auscultation, on room air, no adventitious breath sounds Cardiac: Regular rate and rhythm, no murmur, no JVD, normal peripheral pulses, good capillary refill Abdominal: NABS x 4 quadrants, soft, +protuberant but nondistended, nontender to palpation, no rebound or guarding Back: Dressing c/d/i, ARPIT drain with bloody serosanguineous outs, no surrounding erythema. Extremities: Normal inspection, no peripheral edema or erythema, calfs nontender to palpation Psych: Normal mood and affect Neuro: AAO x 3, strength intact bilaterally and rated 5/5, no motor deficits, speech is clear, no peripheral sensory deficits Results & Data Results & Data Vital Signs (Past 12 Hours) Vital Signs Temp Pulse Pulse Resp BP Pulse Ox O2 Del Method 08/01/23 11:30 36.8 C 61 14 130/70 95 Room Air 08/01/23 11:00 63 15 136/72 93 Room Air 08/01/23 10:35 64 21 122/92 95 Room Air 08/01/23 10:25 65 12 118/68 94 Room Air 08/01/23 10:05 66 13 121/71 97 Oxymask 08/01/23 10:15 37.2 C 68 17 143/80 H 93 Room Air 08/01/23 09:55 73 17 141/72 H 98 Oxymask 08/01/23 09:47 36.1 C L 72 13 143/72 H 93 Oxymask 08/01/23 06:24 36.9 C 63 18 168/83 H 99 Room Air O2 Flow Rate 08/01/23 11:30 08/01/23 11:00 08/01/23 10:35 08/01/23 10:25 08/01/23 10:05 3 08/01/23 10:15 08/01/23 09:55 3 08/01/23 09:47 3 08/01/23 06:24
[2023-08-01] MEDS: LACTATED RINGER'S 1,000 ML IV SCH ×2 (12:38→20:58)
--- NOTE | 2023-08-01 12:40 | Hospitalist Consultation ---
Date of Consultation August 01, 2023 Assessment & Plan (1) Lumbar stenosis with neurogenic claudication: (2) Hypertension: (3) Hyperlipidemia: (4) GERD (gastroesophageal reflux disease): History of Present Illness Attending Physician: Matthew Ortega DO Allergies Allergy/AdvReac Type Severity Reaction Status Date / Time tetracycline Allergy Intermediate Mood Verified 08/01/23 06:22 swings, rash Home Medications Medication Instructions Recorded Confirmed Type aspirin 81 mg capsule 81 mg PO HS 09/16/22 08/01/23 History esomeprazole magnesium 20 mg 20 mg PO DAILY PRN Acid Reflux 07/24/23 08/01/23 History capsule,delayed release (Nexium) melatonin 10 mg tablet 10 mg PO HS PRN Sleep 07/24/23 08/01/23 History metoprolol succinate 25 mg 12.5 mg PO HS 07/24/23 08/01/23 History tablet,extended release 24 hr tadalafil 10 mg tablet 10 mg PO DAILY PRN Sexual Activity 07/24/23 08/01/23 H istory olopatadine 0.2 % eye drops 1 drp ophthalmic (eye) DAILY 08/01/23 08/01/23 History (Pataday Once Daily Relief) potassium chloride 10 mEq 10 meq PO HS 08/01/23 08/01/23 History tablet,extended release(part/cryst) (Klor-Con M) rosuvastatin 40 mg tablet 40 mg PO HS 08/01/23 08/01/23 History Patient History Medical History BPH (benign prostatic hyperplasia) Cardiac murmur Echo 09/2017: Mild MR Hx of gastroesophageal reflux (GERD) Nexium OTC PRN Hx of supraventricular tachycardia Dx after 1st back surgery Follows with Dr. Becker[facility] Hypertension Surgical History History of lumbar surgery L3-4 decompression/fusion (07/12/17): Grade view 2, MAC#4, ETT 8.0 at [facility]. Per post-op anesthesia progress note 07/12/2017, "After taking patient ti [sic] ICU for his recovery time he went into a regular, narrow complex svt- hr in 140's- Otherwise not symptomatic. Given adenosine 6 mg IV which broke it for a couple minutes but it again returned. Adenosine 12 mg IV given with good pause and result to heart rate 70's. Patient had had a very short selfLimited run in the OR after induction and from talking to him has probably had in the past. Gave 2 doses of esmolol 10 mg IV and spoke with Dr. Friend from medicine who is being consulted and he requested a 12 lead ECG. Patient will be sent to a monitored bed when his recovery is complete." Patient subsequently established and has since been monitored by [facility] cardiology outpatient* Hx of arthroscopy of shoulder Left RCR Hx of bilateral cataract extraction Hx of cardiac catheterization 1978- no stents - no stents Approximately 15 years ago- no stents Hx of colonoscopy Hx of thumb surgery R/L hands Social History Smoking Status: Former smoker Smoking End Date: Quit 17 years ago; Second Hand Exposure: No; Do You Dip or Chew Tobacco: No; Tobacco Cessation Education Requested by Patient: No Hx Alcohol Use: Yes Alcohol type: beer Hx Substance Use: No Preferred Language: Sammarinese Communication Ability: Effective Production Ski 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 Beliefs That Will Affect Care: None Current Living Situation: Spouse Other Information That Helps Us Care for You: No Feels Safe at Home: Yes Safety Concerns: Feels Safe At This Time Assistive Devices: None Results & Data Results & Data Vital Signs (Past 12 Hours) Vital Signs Temp Pulse Pulse Resp BP Pulse Ox O2 Del Method 08/01/23 12:12 63 16 97 Room Air 08/01/23 11:30 36.8 C 61 14 130/70 95 Room Air 08/01/23 11:00 63 15 136/72 93 Room Air 08/01/23 10:35 64 21 122/92 95 Room Air 08/01/23 10:25 65 12 118/68 94 Room Air 08/01/23 10:05 66 13 121/71 97 Oxymask 08/01/23 10:15 37.2 C 68 17 143/80 H 93 Room Air 08/01/23 09:55 73 17 141/72 H 98 Oxymask 08/01/23 09:47 36.1 C L 72 13 143/72 H 93 Oxymask 08/01/23 06:24 36.9 C 63 18 168/83 H 99 Room Air O2 Flow Rate 08/01/23 12:12 08/01/23 11:30 08/01/23 11:00 08/01/23 10:35 08/01/23 10:25 08/01/23 10:05 3 08/01/23 10:15 08/01/23 09:55 3 08/01/23 09:47 3 08/01/23 06:24
[2023-08-01] MEDS: oxyCODONE HCL IR 5 MG TAB (IMMEDIATE RELEASE) PO PRN (14:48)
[2023-08-01] MEDS: ceFAZolin 2000MG 2,000 MG/15 ML SYR IV SCH ×2 (15:46→22:21)
[2023-08-01] MEDS: ROSUVASTATIN CALCIUM 20 MG TAB PO SCH (20:54)
[2023-08-01] MEDS: DOCUSATE SODIUM/SENNA 50/8.6MG TAB PO SCH (20:54)
[2023-08-01] MEDS: METOPROLOL SUCC 25MG EXT REL TAB PO SCH (20:55)
[2023-08-01] MEDS: ASPIRIN 81 MG ECTAB PO SCH (20:55)
[2023-08-02] MEDS: POLYETHYLENE (MIRALAX) 17 GM PACK PO SCH ×3 (05:33→17:13)
[2023-08-02 06:22] LABS: Basophils # (auto) 0.02 K/uL (0.00-0.20); Basophils % (auto) 0.1 %; Hematocrit (blood only) 41.3 % (42.0-52.0); Hemoglobin 14.2 g/dl (14.0-18.0); Immature Granulocytes # (auto) 0.06 K/uL (0.01-0.20); Immature Granulocytes % (auto) 0.4 %; Lymphocytes # (auto) 1.33 K/uL (1.20-3.40); Lymphocytes % (auto) 9.5 %; Mean Corpuscular Hemoglobin 31.5 pg (25.0-34.0); Mean Corpuscular Hgb Conc 34.4 g/dL (32.0-36.0); Mean Corpuscular Volume 91.6 fL (80.0-100.0); Monocytes % (auto) 9.3 %; Neutrophils # (auto) 11.29 K/uL (1.40-6.50); Neutrophils % (auto) 80.7 %; Platelet Count 265 K/uL (130-400); RDW Coefficient of Variation 12.7 % (11.5-14.5); RDW Standard Deviation 42.1 fL (36.4-46.3); Red Blood Count 4.51 M/uL (4.70-6.10)
[2023-08-02 06:31] LABS: BUN Creatinine Ratio 11.4 (10-20); Calcium 9.6 mg/dl (8.6-10.3); Creatinine Clr Calc Pharmacy 59.9 ml/min; Est GFR (African American) 79.5 ml/min; Est GFR (Non-African American) 68.6 ml/min; Potassium 4.7 mmol/L (3.5-5.1)
[2023-08-02] MEDS: dexAMETHasone 6 MG in SYRINGE 0 ML IV SCH (08:24)
--- NOTE | 2023-08-02 08:41 | Orthopedic Progress Note ---
Date of Service August 02, 2023 Assessment & Plan (1) Lumbar stenosis with neurogenic claudication: Plan: This time we will continue physical therapy monitor his ARPIT output anticipate discharge home next few days. Admission and Anticipated Discharge Date Admission Date: August 01, 2023 Subjective Patient's back pain is controlled leg symptoms markedly improved. He has been up and ambulating. Physical Exam Physical Exam: Patient is currently in bed. He is comfortable. The strength testing. Results & Data Vital Signs (Past 12 Hours) Vital Signs Temp Pulse Resp BP BP Pulse Ox O2 Del Method 08/02/23 07:13 37 C 68 16 135/70 99 Room Air 08/02/23 03:30 36.7 C 66 18 138/82 99 Room Air 08/01/23 22:56 36.7 C 66 16 128/78 97 Room Air
[2023-08-02] MEDS ORDERED: bisacodyL 10 MG SUPP PR STA (11:05)
--- NOTE | 2023-08-02 15:52 | Hospitalist Progress Note ---
Date of Service August 02, 2023 Assessment & Plan (1) Lumbar stenosis with neurogenic claudication: Plan: - Pain management, bowel regimen and DVT ppx per the primary team - PT/OT consults, pt is planning on outpatient therapy - CBC stable (2) Hypertension: Plan: - continue metoprolol succinate 12.5 mg HS (3) Hyperlipidemia: Plan: - Chronic, stable - Continue rosuvastatin 40 mg HS (4) GERD (gastroesophageal reflux disease): Plan: - Chronic, stable DVT ppx: teds, scds Lines: 2 PIV GI/FEN: HH diet CODE: FULL Thank you for involving us in the care of Mr. Plata. Please do not hesitate to call with questions or concerns. At this time medicine service will follow along. Admission and Anticipated Discharge Date Admission Date: August 01, 2023 Subjective NAEO Reports poor night sleep, but otherwise feels well Endorses sensation of needing to pass stool, but no BM as of this am Denies any other acute concerns Review of Systems Review of Systems: All systems reviewed & are unremarkable except as noted in Subjective Physical Exam Constitutional: WD/WN, vitals as above sitting in bedside chair Respiratory: normal respiratory effort, lungs clear to auscultation Cardiovascular: RRR, no murmur, no edema Results & Data Results & Data Vital Signs (Past 12 Hours) Vital Signs Temp Pulse Resp BP Pulse Ox O2 Del Method 08/02/23 14:49 36.8 C 63 16 128/79 97 Room Air 08/02/23 07:13 37 C 68 16 135/70 99 Room Air Laboratory Results Short CBC 08/02/23 Range/Units 05:50 WBC 14.00 H (4.8-10.8) K/ul Hgb 14.2 (14.0-18.0) g/dl Hct 41.3 L (42.0-52.0) % Plt Count 265 (130-400) K/uL BMP 08/02/23 05:50 Sodium 141 Potassium 4.7 Chloride 107 Carbon Dioxide 28 BUN 12 Creatinine 1.05 Glucose 139 H Calcium 9.6 Medications Administered Home Medications Medication Instructions Recorded Confirmed Last Taken aspirin 81 mg capsule 81 mg PO HS 09/16/22 08/01/23 07/25/23 esomeprazole magnesium 20 mg 20 mg PO DAILY PRN Acid Reflux 07/24/23 08/01/23 Unknown capsule,delayed release (Nexium) melatonin 10 mg tablet 10 mg PO HS PRN Sleep 07/24/23 08/01/23 07/31/23 22:00 metoprolol succinate 25 mg 12.5 mg PO HS 07/24/23 08/01/23 07/31/23 22:00 tablet,extended release 24 hr tadalafil 10 mg tablet 10 mg PO DAILY PRN Sexual Activity 07/24/23 08/01/23 Unknown olopatadine 0.2 % eye drops 1 drp ophthalmic (eye) DAILY 08/01/23 08/01/23 07/31/23 (Pataday Once Daily Relief) oxycodone 5 mg tablet 5 mg PO Q6H PRN pain #30 tabs 08/01/23 Unknown potassium chloride 10 mEq 10 meq PO HS 08/01/23 08/01/23 07/31/23 tablet,extended release(part/cryst) (Klor-Con M) rosuvastatin 40 mg tablet 40 mg PO HS 08/01/23 08/01/23 07/31/23 tramadol 50 mg tablet 50 mg PO Q6H PRN pain, moderate 08/01/23 Unknown #30 tabs Active Medications Generic Name Dose Route Start Last Admin Trade Name Freq PRN Reason Stop Dose Admin Aspirin 81 mg 08/01/23 21:00 08/01/23 20:55 Aspirin 81 Mg Ectab PO 08/31/23 20:59 81 mg HS LIBERTY Administration Dexamethasone 6 mg/ Syringe 1.5 mls @ 1 mls/min 08/02/23 09:00 08/02/23 08:24 IV 08/04/23 09:02 1 mls/min DAILY LIBERTY Administration Metoprolol Succinate 12.5 mg 08/01/23 21:00 08/01/23 20:55 Metoprolol Succ 25mg Ext Rel Tab PO 08/31/23 20:59 12.5 mg HS LIBERTY Administration Oxycodone HCl 5 - 10 mg 08/01/23 11:56 08/01/23 14:48 Oxycodone Hcl Ir 5 Mg Tab (Immediate Release) PO 08/15/23 11:55 5 mg Q4H PRN Administration Pain & Pre PT Polyethylene Glycol 17 gm 08/02/23 06:00 08/02/23 11:33 Polyethylene (Miralax) 17 Gm Pack PO 09/01/23 05:59 17 gm Q6 LIBERTY Administration Rosuvastatin Calcium 40 mg 08/01/23 21:00 08/01/23 20:54 Rosuvastatin Calcium 20 Mg Tab PO 08/31/23 20:59 40 mg HS LIBERTY Administration Senna/Docusate Sodium 2 tab 08/01/23 21:00 08/01/23 20:54 Docusate Sodium/Senna 50/8.6mg Tab PO 08/31/23 20:59 2 tab HS LIBERTY Administration
[2023-08-02] MEDS: traMADol HCL 50 MG TABLET PO PRN (17:23)
[2023-08-02] MEDS: METOPROLOL SUCC 25MG EXT REL TAB PO SCH (20:41)
[2023-08-02] MEDS: ASPIRIN 81 MG ECTAB PO SCH (20:42)
[2023-08-02] MEDS: ROSUVASTATIN CALCIUM 20 MG TAB PO SCH (20:42)
[2023-08-02] MEDS: DOCUSATE SODIUM/SENNA 50/8.6MG TAB PO SCH (20:42)
[2023-08-02] MEDS ORDERED: GABAPENTIN 100 MG CAP PO STA (20:51)
[2023-08-02] MEDS: MELATONIN 3 MG TAB PO PRN (20:53)
[2023-08-02] MEDS ORDERED: HYDROmorphone INJ 0.5 MG/0.5 ML SYR IV ONE (23:58)
[2023-08-03] MEDS: oxyCODONE HCL IR 5 MG TAB (IMMEDIATE RELEASE) PO PRN ×2 (04:29→09:50)
[2023-08-03] MEDS: dexAMETHasone 6 MG in SYRINGE 0 ML IV SCH (07:35)
[2023-08-03 08:13] LABS: Hematocrit (blood only) 39.3 % (42.0-52.0); Hemoglobin 13.6 g/dl (14.0-18.0); Mean Corpuscular Hemoglobin 31.3 pg (25.0-34.0); Mean Corpuscular Hgb Conc 34.6 g/dL (32.0-36.0); Mean Corpuscular Volume 90.6 fL (80.0-100.0); Platelet Count 273 K/uL (130-400); RDW Standard Deviation 42.5 fL (36.4-46.3); Red Blood Count 4.34 M/uL (4.70-6.10); White Blood Count 13.55 K/ul (4.8-10.8)
--- NOTE | 2023-08-03 08:49 | Hospitalist Progress Note ---
Date of Service August 03, 2023 Assessment & Plan (1) Lumbar stenosis with neurogenic claudication: Plan: - Pain management, bowel regimen and DVT ppx per the primary team - PT/OT consults, pt is planning on outpatient therapy; discharge likely tomorrow 08/04 - CBC stable (2) Hypertension: Plan: - continue metoprolol succinate 12.5 mg HS (3) Hyperlipidemia: Plan: - Chronic, stable - Continue rosuvastatin 40 mg HS (4) GERD (gastroesophageal reflux disease): Plan: - Chronic, stable DVT ppx: teds, scds Lines: 2 PIV GI/FEN: HH diet CODE: FULL Thank you for involving us in the care of Mr. Plata. Please do not hesitate to call with questions or concerns. At this time medicine service will follow along. Admission and Anticipated Discharge Date Admission Date: August 01, 2023 Subjective Denies any symptoms at the moment NAEO Review of Systems Review of Systems: All systems reviewed & are unremarkable except as noted in Subjective Physical Exam Constitutional: WD/WN, vitals as above Respiratory: normal respiratory effort, lungs clear to auscultation Cardiovascular: RRR, no murmur, no edema Results & Data Results & Data Vital Signs (Past 12 Hours) Vital Signs Temp Pulse Resp BP Pulse Ox O2 Del Method 08/03/23 07:22 36.5 C 56 L 16 122/72 99 Room Air Laboratory Results Short CBC 08/03/23 Range/Units 07:46 WBC 13.55 H (4.8-10.8) K/ul Hgb 13.6 L (14.0-18.0) g/dl Hct 39.3 L (42.0-52.0) % Plt Count 273 (130-400) K/uL Medications Administered Home Medications Medication Instructions Recorded Confirmed Last Taken aspirin 81 mg capsule 81 mg PO HS 09/16/22 08/01/23 07/25/23 esomeprazole magnesium 20 mg 20 mg PO DAILY PRN Acid Reflux 07/24/23 08/01/23 Unknown capsule,delayed release (Nexium) melatonin 10 mg tablet 10 mg PO HS PRN Sleep 07/24/23 08/01/23 07/31/23 22:00 metoprolol succinate 25 mg 12.5 mg PO HS 07/24/23 08/01/23 07/31/23 22:00 tablet,extended release 24 hr tadalafil 10 mg tablet 10 mg PO DAILY PRN Sexual Activity 07/24/23 08/01/23 Unknown olopatadine 0.2 % eye drops 1 drp ophthalmic (eye) DAILY 08/01/23 08/01/23 07/31/23 (Pataday Once Daily Relief) oxycodone 5 mg tablet 5 mg PO Q6H PRN pain #30 tabs 08/01/23 Unknown potassium chloride 10 mEq 10 meq PO HS 08/01/23 08/01/23 07/31/23 tablet,extended release(part/cryst) (Klor-Con M) rosuvastatin 40 mg tablet 40 mg PO HS 08/01/23 08/01/23 07/31/23 tramadol 50 mg tablet 50 mg PO Q6H PRN pain, moderate 08/01/23 Unknown #30 tabs Active Medications Generic Name Dose Route Start Last Admin Trade Name Freq PRN Reason Stop Dose Admin Acetaminophen 1,000 mg 08/01/23 11:56 08/02/23 19:26 Acetaminophen 500 Mg Tab PO 08/31/23 11:55 1,000 mg Q8H PRN Administration MILD Pain Scale 1,2,3 & Pre PT Al Hydrox/Mg Hydrox/Simethicone 30 ml 08/01/23 11:56 08/02/23 18:37 Aluminum/Magnesium Susp 30 Ml Udc PO 08/31/23 11:55 30 ml Q6H PRN Administration Dyspepsia Aspirin 81 mg 08/01/23 21:00 08/02/23 20:42 Aspirin 81 Mg Ectab PO 08/31/23 20:59 81 mg HS LIBERTY Administration Hydromorphone HCl 0.5 mg 08/01/23 11:56 08/02/23 22:50 Hydromorphone Inj 0.5 Mg/0.5 Ml Syr IV 08/15/23 11:55 0.5 mg Q3H PRN Administration MODERATE Pain (Scale 4,5,6) & Pre PT Dexamethasone 6 mg/ Syringe 1.5 mls @ 1 mls/min 08/02/23 09:00 08/03/23 07:35 IV 08/04/23 09:02 1 mls/min DAILY LIBERTY Administration Lorazepam 0.5 mg 08/01/23 11:56 08/03/23 05:55 Lorazepam 0.5 Mg Tab PO 08/31/23 11:55 0.5 mg Q8H PRN Administration Sedation/Anxiety Magnesium Hydroxide 30 ml 08/01/23 11:56 08/03/23 09:49 Magnesium Hydroxide Susp 30 Ml Udc PO 08/31/23 11:55 30 ml Q24H PRN Administration Constipation Melatonin 9 mg 08/01/23 11:56 08/02/23 20:53 Melatonin 3 Mg Tab PO 9 mg HS PRN Administration Sleep Metoprolol Succinate 12.5 mg 08/01/23 21:00 08/02/23 20:41 Metoprolol Succ 25mg Ext Rel Tab PO 08/31/23 20:59 12.5 mg HS LIBERTY Administration Oxycodone HCl 5 - 10 mg 08/01/23 11:56 08/03/23 09:50 Oxycodone Hcl Ir 5 Mg Tab (Immediate Release) PO 08/15/23 11:55 10 mg Q4H PRN Administration Pain & Pre PT Rosuvastatin Calcium 40 mg 08/01/23 21:00 08/02/23 20:42 Rosuvastatin Calcium 20 Mg Tab PO 08/31/23 20:59 40 mg HS LIBERTY Administration Senna/Docusate Sodium 2 tab 08/01/23 21:00 08/02/23 20:42 Docusate Sodium/Senna 50/8.6mg Tab PO 08/31/23 20:59 2 tab HS LIBERTY Administration Tramadol HCl 50 - 100 mg 08/01/23 11:56 08/02/23 17:23 Tramadol Hcl 50 Mg Tablet PO 08/31/23 11:55 50 mg Q4H PRN Administration Moderate-Severe pain & Pre PT
--- NOTE | 2023-08-03 12:21 | Orthopedic Progress Note ---
Date of Service August 03, 2023 Assessment & Plan (1) Lumbar stenosis with neurogenic claudication: Plan: At this time continue physical therapy and plan for discharge home tomorrow Admission and Anticipated Discharge Date Admission Date: August 01, 2023 Subjective Back pain controlled leg pain improved Physical Exam Physical Exam: Patient is up and ambulating. Is comfortable. Results & Data Vital Signs (Past 12 Hours) Vital Signs Temp Pulse Resp BP Pulse Ox O2 Del Method 08/03/23 07:22 36.5 C 56 L 16 122/72 99 Room Air
[2023-08-03] MEDS: traMADol HCL 50 MG TABLET PO PRN (17:59)
[2023-08-03] MEDS: METOPROLOL SUCC 25MG EXT REL TAB PO SCH (20:16)
[2023-08-03] MEDS: ROSUVASTATIN CALCIUM 20 MG TAB PO SCH (20:17)
[2023-08-03] MEDS: ASPIRIN 81 MG ECTAB PO SCH (20:17)
[2023-08-03] MEDS: DOCUSATE SODIUM/SENNA 50/8.6MG TAB PO SCH (20:17)
[2023-08-03] MEDS ORDERED: POLYETHYLENE (MIRALAX) 17 GM PACK PO PRN (20:30)
[2023-08-03] MEDS: MELATONIN 3 MG TAB PO PRN (21:36)
[2023-08-04] MEDS: dexAMETHasone 6 MG in SYRINGE 0 ML IV SCH (08:28)
--- NOTE | 2023-08-04 10:15 | Discharge Summary ---
Date of Service August 04, 2023 Admission HPI Per Admitting Provider This is a 78-year-old male who presents with chronic persistent back and leg pain after failing course of nonoperative care is here for surgical invention. Principal Diagnosis Lumbar spinal stenosis with neurogenic claudication Discharge Data Allergies Allergy/AdvReac Type Severity Reaction Status Date / Time tetracycline Allergy Intermediate Mood Verified 08/01/23 06:22 swings, rash Consultations 08/01/23 11:56 Consult Hospitalist Routine Procedures Performed Operation Date: 08/01/23 07:45 Actual Procedures p L2-L3 Decompression and Fusion, L3-L4 Hardware Removal(Not Applicable) - Matthew Ortega DO Ordered Studies 08/01/23 07:45 [place] lumbar spine 2-3V Routine Hospital Course (1) Lumbar stenosis with neurogenic claudication: Patient went lumbar decompression fusion tolerated this well was taken to the orthopedic floor postoperatively postoperatively he progressed appropriately. ARPIT drain decreasing appropriately. Excellent strength testing. Pain well controlled. Subsequent to discharge home. Discharge orders and instructions found in chart for further review. Total Time Total Time Spent Total Time Spent (In Minutes): 20 minutes Discharge Plan Discharge Items Patient Disposition: Home - Self-Care Reason For Visit: Lumbar Region Spinal Stenosis Without Neurogenic Discharge Diagnosis: Lumbar spinal stenosis with herniated nucleus pulposus and radiculopathy Activity: As commented below Non-emergency contact: Primary Care Provider Call non-emergency contact if: you have any medication questions Follow-up/Referrals: Maty Rodriguez [Other] Diet: Regular Addtl Attending Provider Instructions: ACTIVITY RECOMMENDATIONS: SELF CARE INSTRUCTIONS AFTER THORACIC/LUMBAR FUSIONS 1. You may walk to your tolerance. It is good exercise for your legs and back. Expect some back and intermittent leg aches and pains. 2. You may perform "counter-top" level activities (make a sandwich, luzmaria with a project, etc.). 3. No bending or lifting of more than 10 pounds or back twisting of any nature (roll like a log when turning in bed). 4. You may ride in a car for 20-30 minutes at a time. No driving until after your first visit with your doctor. 5. Frequent changes of position and restricting sitting to 30 minutes at a time will help limit the amount of back spasms and stiffness you may experience. 6. You may discontinue the use of ambulatory aids (cane, crutches, etc.) once your strength and confidence allow. 7. You may head turning machine operator the shower and let water strike your incision when you arrive home at least once daily. Do not take a tub bath, sit in a hot tub or go into a swimming pool until after your first recheck in the office. SPECIAL CARE INSTRUCTIONS: VERY IMPORTANT TO READ AND REVIEW A. Your surgical incision has been closed with a cosmetic suture under the skin that will dissolve in about 6 weeks. In 14 days, you can use a pair of clean scissors and cut the suture that is left outside of the skin at the ends of your incision. 1. The small skin tapes can be removed 7 days after surgery if they have not fallen off by that point. 2. You may keep the wound open to air as much as possible to promote healing after post-op day number 5 unless told otherwise by your doctor. 3. If you think the wound looks like it is becoming infected (redness or worsening drainage) and/or you are experiencing fever, chill or worsening back pain and muscle spasms, contact the office so that we may evaluate you as soon as possible. B. Complications are uncommon, but please contact us if you have any signs or symptoms of: 1. wound infection (fever higher than 102.5 degrees F, redness, separation of wound, drainage, or increasing pain from the incision) 2. blood clots in legs (pain, swelling, redness and warmth in legs) 3. urinary tract infection (fever higher than 102.5 degrees F, burning upon urination or increased frequency of urination) 4. nerve problems (inability to walk on your toes or heels, numbness, loss of bowel or bladder control) 5. any other symptoms that concern you C. Please call the office at if you have any concerns or questions about your operation or recovery. D. No smoking! Smoking drastically decreases the chance of a solid fusion. E. Do not take any anti-inflammatory medications (Indocin, Advil, Motrin, Aspirin, Naprosyn, etc.) as these may inhibit the chance of a solid fusion. Tylenol is okay to take for pain. MANAGING PAIN AFTER SPINAL SURGERY 1. Narcotic medication is intended for short-term use and will be provided for surgical pain. Surgical pain usually lasts for a period of 4-6 weeks. Narcotic medication includes Percocet, Vicodin, Darvocet, Tylenol #3 or Lortab. 2. Longer-term pain is more appropriately treated with non-narcotic medication such as Tylenol ES. 3. Muscle spasm is not appropriately treated with narcotics. Muscle relaxers such as Soma, Flexeril or Skelaxin can be used along with Tylenol ES. 4. Remember that we all live with some "aches and pains". This is not unusual or uncommon after an injury or as we get older. a. Back pain is expected and may include muscle spasms for 4 to 6 weeks after surgery. The pain should gradually improve. If the pain worsens for no apparent reason, please contact the office. b. Intermittent leg pain may also be experienced and should not be concerned about unless it worsens for no apparent reason. If so, please contact the office. 5. We will provide appropriate medication within the normal guidelines of their prescribed use. We will also be very cautious and aware of potential abuse and extended duration of patients' medication needs. a. Pain medications are for your comfort and to assist with sleep and rest so that the tissue can heal. They are not provided in order to return to normal activity and should not be used through the day. To do so or worsening pain at night can result from ongoing tissue damage and development of tolerance to the prescribed medicine. 6. Please allow 2-3 days to process refills. Prescriptions will not be mailed but must be picked up at the office. FOLLOW UP VISIT: Keep your scheduled follow-up appointment. Any questions, please call the office at . Pending Studies at Discharge: No Stand-Alone Forms: My [facility], Smoking Cessation Medications and [place] Order Prescriptions: New tramadol 50 mg tablet 50 mg PO Q6H PRN (Reason: pain, moderate) Qty: 30 0RF oxycodone 5 mg tablet 5 mg PO Q6H PRN (Reason: pain) Qty: 30 0RF Continued aspirin 81 mg capsule 81 mg PO HS metoprolol succinate 25 mg Tablet Extended Release 24 Hr 12.5 mg PO HS esomeprazole magnesium [Nexium] 20 mg Capsule,Delayed Release(Dr/Ec) 20 mg PO DAILY PRN (Reason: Acid Reflux) melatonin 10 mg Tablet 10 mg PO HS PRN (Reason: Sleep) tadalafil 10 mg tablet 10 mg PO DAILY PRN (Reason: Sexual Activity) rosuvastatin 40 mg tablet 40 mg PO HS potassium chloride [Klor-Con M10] 10 mEq tablet,ER particles/crystals 10 meq PO HS olopatadine [Pataday Once Daily Relief] 0.2 % Drops 1 drp OPHTHALMIC (EYE) DAILY Rx Instructions: Both eyes Discharge Orders: Discharge Order (Routine); Ordered 08/04/23 Ordered By: Matthew Ortega Admission Data Admit Date/Time: 08/01/23 09:29 Attending Provider: Matthew Ortega Admit Provider: Matthew Ortega Primary Care Provider: Maty Rodriguez Other Providers: Tegan Ibarra
== END 2023-08-04 12:01 | disposition home or self-care (01) | DRG 454 ==
LOC: ASU 05:57 → 3E 09:29

== ENCOUNTER 2024-02-11 22:53 | Inpatient (IN) ==
--- OUTSIDE RECORDS SUMMARY | 2024-02-12 01:45 | External Medical Summary | Summary of Care ---
Author Name Unknown Organization [facility] Address [address] [address] Phone [phone] Care Team Providers Care Blender Laborer Name Role Phone Maty Irizarry DO Primary Care Provider [phone] Reason for Visit * Reason Onset Date Comments Medication Question 12/16/2023 Encounter Details Date Type Department Care Team (Late st Contact Info) Description 12/16/2023 Telephone [address] [place] [address] Scott Chambers PA-C [address] [place] [address] [place] [address] Medication Question Allergies Active Allergy Reactions Criticality Noted Date Comments Other Allergy (See Comments) 08/30/2019 "have a long list but non that are life threatening but Tetracycline is the only med allergy" Tetracyclines & Related Rash 07/29/2017 documented as of this encounter (statuses as of 12/22/2023) Medications Medication Sig Dispensed Refills Start Date End Date Status Aspirin 81 MG Tablet Take 1 Tablet by mouth in the morning. 0 Active Cholecalciferol (VITAMIN D3) 2000 units Capsule Take 1 Capsule by mouth in the morning. 0 Active PATADAY 0.2 % ophthalmic solution PUT ONE DROP IN BOTH EYES ONCE DAILY. 12 01/04/2019 Active Ketotifen Fumarate 0.025 % Ophthalmic Solution 1 Drop in the morning and 1 Drop before bedtime. 0 Active Coenzyme Q10 (COQ10) 200 MG CAPS Take by mouth. 0 Active Krill Oil 350 MG CAPS Take by mouth. 0 Active Fluticasone Propionate 50 MCG/ACT Nasal Suspension Administer 1 [place] into nostril daily as needed for Rhinitis. 0 Active Levocetirizine Dihydrochloride 5 MG Oral Tablet Take 0.5 Tablets by mouth at bedtime as needed for Rhinitis. 0 Active Ventolin HFA 108 (90 Base) MCG/ACT Inhalation Aerosol Solution Inhale by mouth 2 Puffs every 4 hours as needed for Shortness of Breath or Wheezing. 18 g 0 02/06/2022 Active Potassium Chloride Stephanie ER 10 MEQ Oral Tablet Extended Release (Klor-Con M10) Take 1 Tablet by mouth in the morning. 90 Tablet 3 02/28/2023 Active Metoprolol Succinate ER 25 MG Oral Tablet Extended Release 24 Hour (toPROL XL)Indications:HTN, goal below 140/90 Take 0.5 Tablets by mouth in the morning. 50 Tablet 3 06/11/2023 Active Omeprazole Magnesium 20 MG Oral Tablet Delayed Release (PriLOSEC OTC) Take 1 Tablet by mouth as needed for Heartburn. 0 Active Tadalafil 10 MG Oral Tablet Take 1 Tablet by mouth daily as needed. 0 08/24/2023 Active Rosuvastatin Calcium 40 MG Oral Tablet (Crestor)Indications:D yslipidemia, goal LDL below 70 TAKE 1 TABLET BY MOUTH EVERY DAY 90 Tablet 3 10/27/2023 Active Desonide 0.05 % External CreamIndications:H/O seborrheic dermatitis Apply 2x daily for scale on eyebrows and chin when flaring until resolved 30 g 0 12/16/2023 Active metroNIDAZOLE 1 % External Gel (Metrogel)Indications: Rosacea Apply topically to face once daily as directed 45 g 2 12/18/2023 Active Hydrocortisone 2.5 % External Cream Apply to rash on face 2x daily until resolved, then when flaring 60 g 0 12/22/2023 Active documented as of this encounter (statuses as of 12/22/2023) Active Problems Problem Noted Date Diagnosed Date Hx of actinic keratosis 09/17/2021 Overview: actinic keratosis (Scalp/face Efudex 09/25) Hx of nonmelanoma skin cancer 09/03/2021 Overview: basal cell carcinoma (site unknown) Shortness of breath 07/20/2021 Allergic conjunctivitis of both eyes 01/26/2021 Prediabetes 08/16/2019 Overview: Per Prediabetes protocol Gastroesophageal reflux disease without esophagi tis 07/20/2019 HTN, goal below 140/90 12/05/2017 PSVT (paroxysmal supraventricular tachycardia) 0 12/05/2017 Dyslipidemia, goal LDL below 70 12/05/2017 documented as of this encounter (statuses as of 12/22/2023) Resolved Problems Problem Noted Date Diagnosed Date Resolved Date Asymptomatic stenosis of left carotid artery 9 07/25/2020 Glaucoma of both eyes 12/05/20172019 documented as of this encounter (statuses as of 12/22/2023) Immunizations Name Administration Dates Next Due COVID-19 mRNA, LNP-s, No Pre serve, 2-Dose Series (Moderna) 11/16/2020,10/19/2020 COVID-19, MRNA-LNP, 23-24, P F, 30 MCG/0.3 mL, 12 YRS AND ABOVE, IM (UpCity-Comirnat) 07/10/2023 COVID-19, mRNA, LNP-s, PF, B ooster, 100mcg/0.5mg (Moderna) 10/16/2021 Pneumococcal Conjugate Vacc, 13 Valent (Prevnar) 12/04/2017 Pneumococcal Polysaccharide PPV23 (Pneumovax) 11/21/2017 Season Influenza, Quad, PF, Adjuvanted, 65+ Yrs, IM (FLUAD) 07/25/2020 Seasonal Influenza, PF, 6 M & above, IM , (FluLaval or Fluzone) 07/03/2018 Seasonal Influenza, Quadriva lent Hd (Fluzone Hd) 06/26/2023,06/28/2022,07/20/2021 Seasonal Influenza, Trivalen t, High Dose, No Preserve, IM 06/24/2019 TDAP (age 10 and older)(Boostrix) 11/21/2017 Zoster Vaccine Recombinant (Shingrix) 11/08/2019 ,08/10/2019 documented as of this encounter Social History Tobacco Use Types Packs/Day Years Used Date Smoking Tobacco: Former Cigarettes 0.3 44 0 10/06/1964 - 10/06/2008 Smokeless Tobacco: Never Alcohol Use Standard Drinks/Week Comments Yes 0 (1 standard drink = 0.6 oz pur e alcohol) 2 beers per day AUDIT-C Answer Date Recorded Frequency of Alcohol Consumption 4 or more times a week 07/20/2019 Average Number of Drinks 1 or 2 019 Frequency of Binge Drinking Not on file 07/06 PHQ-2 Answer Date Recorded PHQ Adult Total Score 0 09/09/2023 Hunger Vital Sign Answer Date Recorded Within the past 12 months, y ou worried that your food would run out before you got the money to buy more. Never true 09/09/20 23 Within the past 12 months, t he food you bought just didn't last and you didn't have money to get more. Never true 09/09/2023 Sex and Gender Information Value Date Recorded Sex Assigned at Male 09/06/2021 3:53 PM EST Gender Identity Male 09/06/2021 3:53 PM EST Sexual Orientation Straight 09/06/2021 3: 53 PM EST Job Start Date Occupation Industry Not on file Not on file Not on file documented as of this encounter Miscellaneous Notes * Addendum Note - Scott Chambers PA-C - 12/22/2023 1:16 PM EDTAddended by: SCOTT CHAMBERS on: 12/22/2023 01:16 PM Modules accepted: Orders * Telephone Encounter - Scott Chambers PA-C - 12/22/2023 1:14 PM EDT Sent in hydrocortisone 2.5% cream for patient to use instead of the desonide. Scott CHAUHAN PA-C * Telephone Encounter - Brandi Boss LPN - 12/22/2023 1:00 PM EDT Patient returned call. Informed of message. Desonide isn't covered by his insurance. He needs something for the dry flaky and red skin by his eyes. Metrogel doesn't seem to help relieve it. Please advise. * Addendum Note - Scott Chambers PA-C - 12/18/2023 10:49 AM EDTAddended by: SCOTT CHAMBERS on: 12/18/2023 10:49 AM Modules accepted: Orders * Addendum Note - Tahira Kay LPN - 12/18/2023 10:18 AM EDTAddended by: TAHIRA KAY on: 12/18/2023 10:18 AM Modules accepted: Orders * Telephone Encounter - Tahira Kay LPN - 12/16/2023 2:53 PM EDT Call went straight to voicemail, message left to return call re medication refill request. * Telephone Encounter - Scott Chambers PA-C - 12/16/2023 1:44 PM EDT Please call patient to see if he needs this medication and the desonide cream? The metrogel would be applied to the entire face at night for rosacea/red face. Scott Chambers WEI Blanc * Telephone Encounter - Harriet Carrasquillo CPhT - 12/16/2023 1:16 PM EDT Pt calling requesting the following medication below that is listed as "Historical". The following information was provided: Medication Name: metronidazole Strength: 1% Directions: ?? - use on face - pt said he was never given specific directions for heriberto [place] Preferred Quantity: n/a Previous Prescriber: heriberto tax technician- Dr. Jimbo Merino Preferred Pharmacy: [id number] [facility] [place] Please review and approve if appropriate. Thank you, Harriet Carrasquillo CPht Power Plant Engineer II [facility] ([facility]) 12/16/2023, 1:17 PM documented in this encounter Plan of Treatment Upcoming Encounters Date Type Department Care Team (Late st Contact Info) Description 02/17/2024 10:00 AM EDT Office Visit Cardiology, [facility] [address] [facility] [place] [address] Ivy Carrillo PA-C [address] [place] [address] [place] [address] 03/19/2024 10:30 AM EDT Office Visit Family Medicine [address] [place] [phone] [address] [place] [address] 09/10/2024 10:30 AM EST Nurse Only Ancillary [address] [place] [address] [place], Nurse Annual Wellness [address] [place] [address] [place] [address] 12/06/2024 11:00 AM EST Office Visit Dermatology [address] [place] [address] Scott Chambers PA-C [address] [place] [address] [place] [phone] Health Maintenance Due Date Last Done Comments GFR 07/22/2024 07/22/2023, 06/2023, 03/18/2023, Additional history exists HbA1c 08/19/2024 08/19/2023, 05/2022, 01/09/2022, Additional history exists Depression Screening 09/09/2024 09/09/2023 Albumin/Creatinine Ratio 11/30/2024 11/30/2021 DTaP,Tdap,and Td Vaccines (2 - Td or Tdap) 11/21/2027 11/21/2017 Pneumococcal Vaccine: 65+ Years Completed 12/04/2017, 11/21/2017 Zoster Vaccines Completed 11/08/2019, 08/10/2019 Colonoscopy Discontinued 03/24/2023, 03/06, 07/09/2018 Colorectal Cancer Screening Discontinued Influenza Vaccine (FLU shot) Completed 06/26/2023, 06/28/2022, 07/20/2021, Additional history exists COVID-19 Vaccine Completed 07/10/2023, 08/2022, 11/16/2020, Additional history exists Cologuard Discontinued Fecal Occult Blood Test Discontinued GARDASIL-HPV IMMUNIZATION SERIES Aged Out No longer eligible based on patient's age to complete this topic Hepatitis B Aged Out No longer eligi ble based on patient's age to complete this topic MENINGOCOCCAL (MENACTRA/MENVEO) Aged Out No longer eligible based on patient's age to complete this topic Sigmoidoscopy Discontinued documented as of this encounter Medical Devices Not on filedocumented as of this encounter Visit Diagnoses Diagnosis Rosacea- Primary documented in this encounter Care Teams Blender Laborer Relationship Specialty Start Date End Date Maty Irizarry DO [address] [place] [address] [place] [address] PCP - General Internal Medicine 07/20/19 documented as of this encounter
--- OUTSIDE RECORDS SUMMARY | 2024-02-12 01:45 | External Medical Summary | Summary of Care ---
Author Name Unknown Organization [facility] Address [address] [address] Phone [phone] Care Team Providers Care Employment Office Clerk Name Role Phone Maty Irizarry DO Primary Care Provider Reason for Visit * Reason Onset Date Comments Medication Refill 12/16/2023 Encounter Details Date Type Department Care Team (Late st Contact Info) Description 12/16/2023 Refill Dermatology [address] [place] [phone] Scott Chambers PA-C [address] [place] [address] [place] [address] H/O seborrheic dermatitis Allergies Active Allergy Reactions Criticality Noted Date Comments Other Allergy (See Comments) 08/30/2019 "have a long list but non that are life threatening but Tetracycline is the only med allergy" Tetracyclines & Related Rash 07/29/2017 documented as of this encounter (statuses as of 12/16/2023) Medications Medication Sig Dispensed Refills Start Date [...] Propionate 50 MCG/ACT Nasal Suspension Administer 1 [place] into nostril daily as needed for Rhinitis. [...] Active Rosuvastatin Calcium 40 MG Oral Tablet (Crestor)Indications :Dyslipidemia, goal LDL below 70 TAKE 1 TABLET BY MOUTH EVERY DAY 90 Tablet 3 10/27/2023 Active Desonide 0.05 % External CreamIndications:H/O seborrheic dermatitis Apply 2x daily for scale on eyebrows and chin when flaring until resolved 30 g 0 12/16/2023 Active Desonide 0.05 % External CreamIndications:H/O seborrheic dermatitis Apply 2x daily for scale on eyebrows and chin when flaring until resolved 30 g 0 09/23/2022 4 Discontinue d(Refill) documented as of this encounter (statuses as of 12/16/2023) Active Problems Problem Noted Date Diagnosed Date [...] as of this encounter (statuses as of 12/16/2023) Resolved Problems Problem Noted Date Diagnosed Date Resolved Date Asymptomatic stenosis of left carotid artery 9 07/25/2020 Glaucoma of both eyes 12/05/20172019 documented as of this encounter (statuses as of 12/16/2023) Immunizations Name Administration Dates Next Due COVID-19 mRNA, LNP-s, No Pre serve, 2-Dose Series (Moderna) 11/16/2020,10/19/2020 COVID-19, MRNA-LNP, 23-24, P F, 30 MCG/0.3 mL, 12 YRS AND ABOVE, IM (Ocision-Comirnat) 07/10/2023 COVID-19, mRNA, LNP-s, PF, B ooster, [...] as of this encounter Miscellaneous Notes * Telephone Encounter - Scott Chambers PA-C - 12/16/2023 1:44 PM EDT Signed Prescriptions: Disp Refills Desonide 0.05 % External Cream 30 g 0 Sig: Apply 2x daily for scale on eyebrows and chin when flaring until resolvedAuthorizing Provider: SCOTT CHAMBERS----- * Telephone Encounter - Harriet Carrasquillo CPhT - 12/16/2023 1:21 PM EDT Did you pend patient's preferred pharmacy and medication before forwarding?yes Pharmacy: [id number] [address] [facility] Pending Prescriptions: Disp Refills Desonide 0.05 % External Cream 30 g 0 Sig: Apply 2x daily for scale on eyebrows and chin when flaring until resolved Last Visit: 12/01/2023 (in office), Visit date not found (telemedicine) Next Visit: 12/06/2024 If no future appointments scheduled, and last appointment is greater than a year ago, please schedule patient for a follow-up appointment Last date the medication was ordered: 09/23/22 Is this request for a controlled substance?No Urine Drug Screen:No results found for this or any previous visit. Patient Phone Numbers Labs: Lab Results Component Value Date/Time CREAT 0.94 07/22/2023 12:00 AM CREAT 1.1 05/30/2020 02:39 PM POTASSIUM 4.6 07/22/2023 12:00 AM POTASSIUM 4.3 05/30/2020 02:39 PM TSH 1.070 07/26/2018 12:00 AM LDLCALC 95 08/19/2023 11:07 AM LDLCALC 63 05/30/2020 02:39 PM LDLDIRECT NOT APPLICABLE 05/30/2020 02:39 PM ALT 26 08/13/2022 02:53 PM ALT 24 05/30/2020 02:39 PM HGBA1C 5.9 (H) 08/19/2023 11:07 AM HGBA1C 5.8 (H) 05/30/2020 02:39 PM documented in this encounter Plan of Treatment Upcoming Encounters Date Type Department Care Team (Late st Contact Info) Description 02/17/2024 10:00 AM EDT Office Visit Cardiology, [facility] [address] [facility] [place] [address] Ivy Carrillo PA-C [address] [place] [address] [place] [address] 03/19/2024 10:30 AM EDT Office Visit Family Medicine [address] [place] [phone] Maty Irizarry, [address] [place] [address] [place] [address] 09/10/2024 10:30 AM EST Nurse Only Ancillary [address] [place] [address] [place], Nurse Annual Wellness [address] [place] [address] [place] [address] 12/06/2024 11:00 AM EST Office Visit Dermatology [address] [place] [address] Scott Chambers PA-Samia [address] [place] [address] [place] [address] Health Maintenance Due Date Last Done Comments [...] as of this encounter Visit Diagnoses Diagnosis H/O seborrheic dermatitis Personal history of diseases of skin and subcutaneous tissue documented in this encounter Care Teams Employment Office Clerk Relationship Specialty Start Date End Date Maty Irizarry DO [address] [place] [address] [place] [address] PCP - General Internal Medicine 07/20/19 documented as of this encounter
--- OUTSIDE RECORDS SUMMARY | 2024-02-12 01:45 | External Medical Summary | Summary of Care ---
Author Name Unknown Organization [facility] Address [address] [place] [address] Phone [phone] Care Team Providers Care Heat Sealing Machine Operator Name Role Phone Maty Irizarry DO Primary Care Provider Reason for Referral * Evaluate & Treat - Unlimited Visits (Within 10 days (routine)) - Authorized Specialty Diagnoses / Procedures Referred By Peace sepulveda Referred To Contact Orthopaedic Surgery / Orthopedics Diagnoses Right shoulder pain, unspecified chronicity Maty Irizarry DO [address] [place] [address] [place] [address] Referral ID Status Reason Start Date Expiration Date Visits Requested Visits Authorized [id number] Authorized Specialty Services Required 10/28/2023 999 999 Question Answer Referral Priority Within 10 days (routine) Where should this appointment be scheduled? External - [facility] What body part is the patient being seen for? Shoulder - Right What condition is the patient being seen for? Sprain/Strain/Tear/Other - Pain Comments [facility], per pt request. Reason for Visit * Reason Onset Date Comments Advice 10/28/2023 Appointment 10/28/2023 Ortho Encounter Details Date Type Department Care Team (Late st Contact Info) Description 10/28/2023 Telephone Family Medicine [address] [place] [address] [place] [address] Advice; Appointment (Ortho ) Allergies Active Allergy Reactions Criticality Noted Date Comments Other Allergy (See Comments) 08/30/2019 "have a long list but non that are life threatening but Tetracycline is the only med allergy" Tetracyclines & Related Rash 07/29/2017 documented as of this encounter (statuses as of 11/04/2023) Medications Medication Sig Dispensed Refills Start Date [...] Propionate 50 MCG/ACT Nasal Suspension Administer 1 Price into nostril daily as needed for Rhinitis. 0 Active Levocetirizine Dihydrochloride 5 MG Oral Tablet Take 0.5 Tablets by mouth at bedtime as needed for Rhinitis. 0 Active Ventolin HFA 108 (90 Base) MCG/ACT Inhalation Aerosol Solution Inhale by mouth 2 Puffs every 4 hours as needed for Shortness of Breath or Wheezing. 18 g 0 02/06/2022 Active Desonide 0.05 % External CreamIndications:H/O seborrheic dermatitis Apply 2x daily for scale on eyebrows and chin when flaring until resolved 30 g 0 09/23/2022 Active Potassium Chloride [facility] MEQ [...] EVERY DAY 90 Tablet 3 10/27/2023 Active documented as of this encounter (statuses as of 11/04/2023) Active Problems Problem Noted Date Diagnosed Date [...] as of this encounter (statuses as of 11/04/2023) Resolved Problems Problem Noted Date Diagnosed Date Resolved Date Asymptomatic stenosis of left carotid artery 9 07/25/2020 Glaucoma of both eyes 12/05/20172019 documented as of this encounter (statuses as of 11/04/2023) Immunizations Name Administration Dates Next Due COVID-19 mRNA, LNP-s, No Pre serve, 2-Dose Series (Moderna) 11/16/2020,10/19/2020 COVID-19, MRNA-LNP, 23-24, P F, 30 MCG/0.3 mL, 12 YRS AND ABOVE, IM ([facility]) 07/10/2023 COVID-19, mRNA, LNP-s, PF, B ooster, [...] Used Date Smoking Tobacco: Former Cigarettes 0.3 35 0 10/06/1964 - 10/06/2008 Smokeless Tobacco: Never [...] encounter Miscellaneous Notes * Telephone Encounter - Karissa Azul, SAGAR - 11/04/2023 12:45 PM EST Appt requested on the Online Appts at [facility]. They will call pt. Referral and records faxed to [phone]. * Telephone Encounter - Karissa Azul OSA - 11/03/2023 10:41 AM EST I left message with patient's to call me (RE: Ortho appt - [facility] or [facility]?) * Telephone Encounter - Karissa Azul OSA - 10/29/2023 10:06 AM EST I left message on patient's VM to call me (RE: Ortho appt - who does he want to see - [facility] (that I see he has seen in the past or [facility] that he requested?). * Telephone Encounter - Maty Irizarry DO - 10/28/2023 4:19 PM EST Please fax referral as per patient's request. * Telephone Encounter - Harriet Funes LPN - 10/28/2023 3:29 PM EST Patient calling in asking for a referral to orthopedics for right shoulder pain. No injury noted, he stated that it has been hurting him for several months but the last month and ahalf it really has been acting up. He stated that it really bothered him last night as it kept him up most of the night, He stated that he would ban a referral sent to [facility]. He had his left shoulder rotator cuff repaired by them. He stated that just holding the phone talking his shoulder aches. He stated that if he needs to schedule an appointment with the office he will but wanted to see if PCP would place referral. Pended for approval. documented in this encounter Plan of Treatment Upcoming Encounters Date Type Department Care Team (Late st Contact Info) Description 12/01/2023 4:00 PM EST Office Visit Dermatology [address] [place] [address] Kylah Chambers PA-C [address] [place] [address] [place] [address] 01/23/2024 2:00 PM EDT Office Visit Cardiology, [facility] [address] [place] [address] Ivy Carrillo PA-C [address] [place] [phone] 03/19/2024 10:30 AM EDT Office Visit Family Medicine [address] [place] [phone] Maty Irizarry [address] [place] [address] 09/10/2024 10:30 AM EST Nurse Only Ancillary [address] [place] [address] [place], Nurse [address] [place] [address] Scheduled Referrals Name Type Priority Associated Diagnoses Orde r Schedule ORTHOPAEDICS REFERRAL OP Referral Within 10 days (routine) Right shoulder pain, unspecified chronicity Ordered: 10/28/2023 Health Maintenance Due Date Last Done Comments [...] as of this encounter Visit Diagnoses Diagnosis Right shoulder pain, unspecified chronicity- Primary documented in this encounter Care Teams Heat Sealing Machine Operator Relationship Specialty Start Date End Date Maty Irizarry DO [address] [place] [address] [place] [address] PCP - General Internal Medicine 07/20/19 documented as of this encounter
--- OUTSIDE RECORDS SUMMARY | 2024-02-12 01:45 | External Medical Summary | Summary of Care ---
Author Name Unknown Organization [facility] Address [address] [facility] [address] Phone [phone] Care Team Providers Care Public Address Technician Name Role Phone Maty Irizarry DO Primary Care Provider Reason for Visit * Reason Onset Date Comments Medication Question 12/16/2023 Encounter Details Date Type Department Care Team (Late st Contact Info) Description 12/16/2023 Telephone Dermatology [address] [place] [address] Kylah Chambers PA-C [address] [place] [address] [place] [address] Medication Question Allergies Active Allergy Reactions Criticality [...] Propionate 50 MCG/ACT Nasal Suspension Administer 1 Alma into nostril daily as needed for Rhinitis. [...] until resolved 30 g 0 12/16/2023 Active documented as of this encounter (statuses [...] MCG/0.3 mL, 12 YRS AND ABOVE, IM ([facility]) 07/10/2023 COVID-19, mRNA, LNP-s, PF, B ooster, [...] encounter Miscellaneous Notes * Telephone Encounter - Kylah Chambers PA-C - 12/16/2023 1:44 PM EDT Please call patient to see if he needs this medication and the desonide cream? The metrogel would be applied to the entire face at night for rosacea/red face. Kylah CHAUHAN PA-C * Telephone Encounter - Harriet Carrasquillo CPhT - 12/16/2023 1:16 PM EDT Pt calling requesting the following medication below that is listed as "Historical". The following information was provided: Medication Name: metronidazole Strength: 1% Directions: ?? - use on face - pt said he was never given specific directions for old Dr Preferred Quantity: n/a Previous Prescriber: heriberto vice chancellor- Dr. Jimbo Merino Preferred Pharmacy: [facility] #[id number] [id number] [facility] [place] Please review and approve if appropriate. Thank you, Harriet Carrasquillo CPht Delinquent Tax Collection Assistant II [facility] ([facility]) (formerly Telepharmacy) 12/16/2023, 1:17 PM documented in this encounter Plan of Treatment Upcoming Encounters Date Type Department Care Team (Late st Contact Info) Description 02/17/2024 10:00 AM EDT Office Visit Cardiology, [facility] [address] [place] [address] Ivy Carrillo PA-C [address] [place] [address] 03/19/2024 10:30 AM EDT Office Visit Family Medicine [address] [place] [phone] Maty Irizarry [address] [place] [address] 09/10/2024 10:30 AM EST Nurse Only Ancillary [address] [place] [address] [place], Nurse [facility] [address] [place] [address] [place] [address] 12/06/2024 11:00 AM EST Office Visit Dermatology [address] [place] [address] Kylah Chambers PA-C [address] [place] [address] [place] [address] Health Maintenance Due Date Last Done Comments [...] Not on filedocumented as of this encounter Care Teams Public Address Technician Relationship Specialty Start Date End Date Maty Irizarry DO [address] [place] [address] [place] [address] PCP - General Internal Medicine 07/20/19 documented as of this encounter
--- OUTSIDE RECORDS SUMMARY | 2024-02-12 01:45 | External Medical Summary | Summary of Care ---
Author Name Unknown Organization [facility] Address [address] [place] [address] Phone [phone] Care Team Providers Care Bulb Brander Name Role Phone Maty Irizarry DO Primary Care Provider [phone] Reason for Visit * Reason Onset Date Comments Health Maintenance 01/13/2024 Encounter Details Date Type Department Care Team (Late st Contact Info) Description 01/13/2024 Telephone Family Medicine [address] [phone] Maty Irizarry DO [address] [place] [address] [place] [address] Health Maintenance Allergies Active Allergy Reactions Criticality Noted Date Comments Other Allergy (See Comments) 08/30/2019 "have a long list but non that are life threatening but Tetracycline is the only med allergy" Tetracyclines & Related Rash 07/29/2017 documented as of this encounter (statuses as of 01/13/2024) Medications Medication Sig Dispensed Refills Start Date [...] Propionate 50 MCG/ACT Nasal Suspension Administer 1 Roberts into nostril daily as needed for Rhinitis. [...] as of this encounter (statuses as of 01/13/2024) Active Problems Problem Noted Date Diagnosed Date [...] as of this encounter (statuses as of 01/13/2024) Resolved Problems Problem Noted Date Diagnosed Date Resolved Date Asymptomatic stenosis of left carotid artery 9 07/25/2020 Glaucoma of both eyes 12/05/20172019 documented as of this encounter (statuses as of 01/13/2024) Immunizations Name Administration Dates Next Due COVID-19 mRNA, LNP-s, No Pre serve, 2-Dose Series (Moderna) 11/16/2020,10/19/2020 COVID-19, MRNA-LNP, 23-24, P F, 30 MCG/0.3 mL, 12 YRS AND ABOVE, IM ([employer]Com[facility]) 07/10/2023 COVID-19, mRNA, LNP-s, PF, B ooster, [...] encounter Miscellaneous Notes * Telephone Encounter - Trino CallejasMANUEL corcoran - 01/13/2024 2:03 PM EDT Care Gaps Comprehensive Care Outreach Last Office/Telemedicine Visit: 08/19/2023 (in office), Visit date not found (telemedicine) Next Office Visit: 03/19/2024 Hemoglobin AIC Results: Lab Results Component Value Date/Time HEMOGLOBIN A1C - [facility] 5.9 (H) 08/19/2023 11:07 AM HEMOGLOBIN A1C - [facility] 6.1 (H) 08/13/2022 02:53 PM HEMOGLOBIN A1C - [facility] 6.0 (H) 01/09/2022 10:14 AM HEMOGLOBIN A1C - [facility] 5.8 (H) 05/30/2020 02:39 PM HEMOGLOBIN A1C - [facility] 5.8 (H) 08/10/2019 11:53 AM BP Readings from Last 1 Encounters: 09/09/23 124/70 Reviewed Health Maintenance below: Health Maintenance Topic Date Due GFR 07/22/2024 HbA1c 08/19/2024 Depression Screening 09/09/2024 Albumin/Creatinine Ratio 11/30/2024 DTaP,Tdap,and Td Vaccines (2 - Td or Tdap) 11/21/2027 Awv already scheduled Care Gap Outreach Action Taken: Outreach not indicated documented in this encounter Plan of Treatment Upcoming Encounters Date Type Department Care Team (Late st Contact Info) Description 02/17/2024 10:00 AM EDT Office Visit Cardiology, [facility] [address] [facility] [place] [phone] Ivy Carrillo PA-C [address] [place] [address] 03/19/2024 10:30 AM EDT Office Visit Family Medicine [address] [place] [phone] Maty Irizarry [address] [place] [address] 09/10/2024 10:30 AM EST Nurse Only Ancillary [address] [place] [address] [place], Nurse Annual [address] [place] [address] 12/06/2024 11:00 AM EST Office Visit Dermatology [address] [place] [address] Kylah Chambers PA-C [address] [place] [address] [place] [address] Health Maintenance Due Date Last Done Comments [...] filedocumented as of this encounter Care Teams Bulb Brander Relationship Specialty Start Date End Date Maty Irizarry DO [address] [place] [address] [place] [address] PCP - General Internal Medicine 07/20/19 documented as of this encounter
--- OUTSIDE RECORDS SUMMARY | 2024-02-12 01:45 | External Medical Summary | Summary of Care ---
Author Name Unknown Organization [facility] Address [address] [facility] [address] Phone [phone] Care Team Providers Care Cardiovascular Rn Name Role Phone Maty Irizarry DO Primary Care Provider Reason for Visit * Reason Onset Date Comments Medication Question 12/16/2023 Encounter Details Date Type Department Care Team (Late st Contact Info) Description 12/16/2023 Telephone Dermatology [address] [place] [address] Scott Chambers PA-C [address] [place] [address] [place] [address] Medication Question Allergies Active Allergy Reactions Criticality [...] Propionate 50 MCG/ACT Nasal Suspension Administer 1 Ford into nostril daily as needed for Rhinitis. [...] as directed 45 g 2 12/18/2023 Active documented as of this encounter (statuses [...] MCG/0.3 mL, 12 YRS AND ABOVE, IM ([employer]ir[facility]) 07/10/2023 COVID-19, mRNA, LNP-s, PF, B ooster, [...] encounter Miscellaneous Notes * Telephone Encounter - Brandi Boss LPN [...] Dr Preferred Quantity: n/a Previous Prescriber: heriberto scientific laboratory supervisor- Dr. Jimbo Merino Preferred Pharmacy: [facility] #[id number] Please review and approve if appropriate. Thank you, Harriet Carrasquillo CPht Web Publisher II [facility] ([facility]) (formerly Telepharmacy) 12/16/2023, 1:17 PM documented in this encounter Plan of Treatment Upcoming Encounters Date Type Department Care Team (Late st Contact Info) Description 02/17/2024 10:00 AM EDT Office Visit Cardiology, [address] [place] [address] Ivy Carrillo PA-C [address] [place] [address] 03/19/2024 10:30 AM EDT Office Visit Family Medicine [address] [place] [phone] Maty Irizarry, [address] [place] [address] [place] [address] 09/10/2024 10:30 AM EST Nurse Only Ancillary [address] [place] [address] [place], Nurse Annual [address] [place] [address] 12/06/2024 11:00 AM EST Office Visit Dermatology [address] [place] [address] Scott Chambers PA-C [address] [place] [address] [place] [address] Health Maintenance Due Date Last Done Comments [...] Primary documented in this encounter Care Teams Cardiovascular Rn Relationship Specialty Start Date End Date Maty Irizarry DO [address] [place] [address] [place] [address] PCP - General Internal Medicine 07/20/19 documented as of this encounter
--- OUTSIDE RECORDS SUMMARY | 2024-02-12 01:45 | External Medical Summary | Summary of Care ---
Author Name Unknown Organization [facility] Address [address] [place] [address] Phone [phone] Care Team Providers Care Industrial Safety And Health Specialist Name Role Phone Maty Irizarry DO Primary Care Provider [phone] Reason for Referral * Evaluate & Treat - Unlimited Visits (Within 10 days (routine)) - Authorized Specialty Diagnoses / Procedures Referred By Peace sepulveda Referred To Contact Orthopaedic Surgery / Orthopedics Diagnoses Right shoulder pain, unspecified chronicity Maty Irizarry DO [address] [place] [address] [place] [address] Referral ID Status Reason Start Date Expiration Date Visits Requested Visits Authorized [id number] Authorized Specialty Services Required 10/28/2023 999 999 [...] Contact Info) Description 10/28/2023 Telephone Family Medicine [address] [place] [address] [place] [address] Advice; Appointment (Ortho ) Allergies Active Allergy Reactions Criticality Noted Date Comments Other Allergy (See Comments) 08/30/2019 "have a long list but non that are life threatening but Tetracycline is the only med allergy" Tetracyclines & Related Rash 07/29/2017 documented as of this encounter (statuses as of 11/03/2023) Medications Medication Sig Dispensed Refills Start Date [...] Propionate 50 MCG/ACT Nasal Suspension Administer 1 Fulda into nostril daily as needed for Rhinitis. [...] as of this encounter (statuses as of 11/03/2023) Active Problems Problem Noted Date Diagnosed Date [...] as of this encounter (statuses as of 11/03/2023) Resolved Problems Problem Noted Date Diagnosed Date Resolved Date Asymptomatic stenosis of left carotid artery 9 07/25/2020 Glaucoma of both eyes 12/05/20172019 documented as of this encounter (statuses as of 11/03/2023) Immunizations Name Administration Dates Next Due COVID-19 mRNA, LNP-s, No Pre serve, 2-Dose Series (Moderna) 11/16/2020,10/19/2020 COVID-19, MRNA-LNP, 23-24, P F, 30 MCG/0.3 mL, 12 YRS AND ABOVE, IM ([employer]) 07/10/2023 COVID-19, mRNA, LNP-s, PF, B ooster, [...] Miscellaneous Notes * Telephone Encounter - Karissa Azul OSA [...] he would ban a referral sent to [facility]. He had his left shoulder [...] 12/01/2023 4:00 PM EST Office Visit Dermatology [address] [place] [address] Kylah Chambers PA-C [address] [place] [address] [place] [address] 01/23/2024 2:00 PM EDT Office Visit Cardiology, [facility] [address] [facility] [place] [phone] Ivy Carrillo PA-C [address] [place] [address] 03/19/2024 10:30 AM EDT Office Visit Family Medicine [address] [place] [phone] Maty Irizarry, [address] [place] [address] 09/10/2024 10:30 AM EST Nurse Only Ancillary [address] [place] [address] [place], Nurse [address] [place] [address] Scheduled Referrals Name Type Priority Associated Diagnoses [...] Primary documented in this encounter Care Teams Industrial Safety And Health Specialist Relationship Specialty Start Date End Date Maty Irizarry DO [address] [place] [address] [place] [address] PCP - General Internal Medicine 07/20/19 documented as of this encounter
--- OUTSIDE RECORDS SUMMARY | 2024-02-12 01:45 | External Medical Summary | Summary of Care ---
Author Name Unknown Organization [facility] Address [address] [facility] [address] Phone [phone] Care Team Providers Care Certified Flight Instructor Name Role Phone Maty Irizarry DO Primary Care Provider Reason for Visit * Reason Onset Date Comments Medication Question 12/16/2023 Encounter Details Date Type Department Care Team (Late st Contact Info) Description 12/16/2023 Telephone Dermatology [address] [place] [address] Kylah Chambers PA-C [address] [place] [address] [place] [address] Medication Question Allergies Active Allergy Reactions Criticality Noted Date Comments Other Allergy (See Comments) 08/30/2019 "have a long list but non that are life threatening but Tetracycline is the only med allergy" Tetracyclines & Related Rash 07/29/2017 documented as of this encounter (statuses as of 12/18/2023) Medications Medication Sig Dispensed Refills Start Date [...] Propionate 50 MCG/ACT Nasal Suspension Administer 1 Tynan into nostril daily as needed for Rhinitis. [...] as of this encounter (statuses as of 12/18/2023) Active Problems Problem Noted Date Diagnosed Date [...] as of this encounter (statuses as of 12/18/2023) Resolved Problems Problem Noted Date Diagnosed Date Resolved Date Asymptomatic stenosis of left carotid artery 9 07/25/2020 Glaucoma of both eyes 12/05/20172019 documented as of this encounter (statuses as of 12/18/2023) Immunizations Name Administration Dates Next Due COVID-19 mRNA, LNP-s, No Pre serve, 2-Dose Series (Moderna) 11/16/2020,10/19/2020 COVID-19, MRNA-LNP, 23-24, P F, 30 MCG/0.3 mL, 12 YRS AND ABOVE, IM ([facility] 07/10/2023 COVID-19, mRNA, LNP-s, PF, B ooster, [...] encounter Miscellaneous Notes * Addendum Note - Tahira Kay LPN - 12/18/2023 10:18 AM EDTAddended by: TAHIRA KAY on: 12/18/2023 10:18 AM Modules accepted: Orders * Telephone Encounter - Tahira Kay LPN - 12/16/2023 2:53 PM EDT Call went straight to voicemail, message left to return call re medication refill request. * Telephone Encounter - Kylah Chambers PA-C - 12/16/2023 1:44 PM EDT Please call patient to see if he needs this medication and the desonide cream? The metrogel would be applied to the entire face at night for rosacea/red face. Kylah Chambers WEI Blanc * Telephone Encounter - Harriet Carrasquillo CPhT - 12/16/2023 1:16 PM EDT Pt calling requesting the following medication below that is listed as "Historical". The following information was provided: Medication Name: metronidazole Strength: 1% Directions: ?? - use on face - pt said he was never given specific directions for old Dr Preferred Quantity: n/a Previous Prescriber: heriberto transfer agent- Dr. Jimbo Merino Preferred Pharmacy: [id number] [address] [facility] [place] Please review and approve if appropriate. Thank you, Harriet Carrasquillo CPht Child Development Consultant II [facility] ([facility]) (formerly Telepharmacy) 12/16/2023, 1:17 PM documented in this encounter Plan of Treatment Upcoming Encounters Date Type Department Care Team (Late st Contact Info) Description 02/17/2024 10:00 AM EDT Office Visit Cardiology, [facility] [address] [facility] [place] [address] Ivy Carrillo PA-C [address] [place] [address] [place] [address] 03/19/2024 10:30 AM EDT Office Visit Family Medicine [address] [place] [phone] Maty Irizarry, [address] [place] [address] 09/10/2024 10:30 AM EST Nurse Only Ancillary [address] [place] [address] [place], Nurse [address] [place] [address] 12/06/2024 11:00 AM EST Office Visit Dermatology [address] [place] [address] Kylah Chambers PA-C [address] [place] [address] [place] [address] Health Maintenance Due Date Last Done Comments [...] Primary documented in this encounter Care Teams Certified Flight Instructor Relationship Specialty Start Date End Date Maty Irizarry DO [address] [place] [address] [place] [address] PCP - General Internal Medicine 07/20/19 documented as of this encounter
--- OUTSIDE RECORDS SUMMARY | 2024-02-12 01:45 | External Medical Summary | Summary of Care ---
Author Name Unknown Organization [facility] Address [address] [place] [address] Phone [phone] Care Team Providers Care Corporate Sales Representative Name Role Phone Maty Irizarry DO Primary Care Provider Reason for Visit * Reason Comments Skin Check Concern: area on lef t hand Encounter Details Date Type Department Care Team (Late st Contact Info) Description 12/01/2023 4:00 PM EST Office Visit Dermatology [address] [place] [address] Kylah Chambers PA-C [address] [place] [address] [place] [address] Neoplasm of uncertain behavior of skin*; Skin exam, screening for cancer; Lentigines; Actinic keratosis Allergies Active Allergy Reactions Criticality Noted Date Comments Other Allergy (See Comments) 08/30/2019 "have a long list but non that are life threatening but Tetracycline is the only med allergy" Tetracyclines & Related Rash 07/29/2017 documented as of this encounter (statuses as of 12/01/2023) Medications Medication Sig Dispensed Refills Start Date [...] Propionate 50 MCG/ACT Nasal Suspension Administer 1 [place] into nostril daily as needed for Rhinitis. [...] as of this encounter (statuses as of 12/01/2023) Active Problems Problem Noted Date Diagnosed Date [...] as of this encounter (statuses as of 12/01/2023) Resolved Problems Problem Noted Date Diagnosed Date Resolved Date Asymptomatic stenosis of left carotid artery 9 07/25/2020 Glaucoma of both eyes 12/05/20172019 documented as of this encounter (statuses as of 12/01/2023) Immunizations Name Administration Dates Next Due COVID-19 mRNA, LNP-s, No Pre serve, 2-Dose Series (Moderna) 11/16/2020,10/19/2020 COVID-19, MRNA-LNP, 23-24, P F, 30 MCG/0.3 mL, 12 YRS AND ABOVE, IM (PFIZER-Comirnaty) 07/10/2023 COVID-19, mRNA, LNP-s, PF, B ooster, [...] on file documented as of this encounter Patient Instructions * Patient Instructions* Kylah Chambers PA-C - 12/01/2023 4:06 PM EST Skin Cryosurgery (FREEZING) Instructions Most areas treated by freezing will need very little care. You may wash normally with soap and water and leave any small crusts in place. Vaseline to treated areas 2-3 times per day is a good idea, you do not need to keep them covered with bandages. If a large blister forms and breaks, you will want to apply a light dressing to the area. CHANGE DRESSING ONCE DAILY 1. Wash hands and remove the original dressing(s) in 12-24 hours. 2. Gently clean wound(s) with soap and water. Rinse with water and pat the wound dry. 3. Apply a thin layer of Vaseline ointment with a Q-tip. 4. Cover with a bandage if area(s) is not on the face or scalp. A dressing is not required on the face or scalp. Use non-adherent dressing and paper tape if you are sensitive to band-aid adhesive sensitive. 5. If you have any concerns about the healing wound, please either or our main Dermatology office in [place] at [phone]. If an emergency, please go to your nearest Emergency Department. SUNSCREEN USE AND SUN PROTECTION: 1. The best protection is sun avoidance. Seek shade if you can, especially between 10am to 4pm (peak sun hours). 2. Use sunscreen with an SPF (Sun Protection Factor - the number on most sunscreen bottles) of 30 or more that protects from Ultraviolet A (UVA) and Ultraviolet B (UVB) wavelength light (strongly recommend SPF 50). This is referred to as broad spectrum sun protection because it protects from most wa velengths in both spectrums of UVA and UVB light. Unfortunately, even though the protection is broad it is not complete, therefore making sun avoidance the best protection. UVB and UVA have both beenimplicated in causing skin cancers. Older sunscreens only protected from UVB and sunscreens with added UVA protection should contain Titanium dioxide, Zinc oxide, or Avobenzone. Other oil free, non-comedogenic lotion with SPF 30 or greater is fine. 3. Use sun protection if outside for 15 minutes or more. Apply 20-30 minutes before going out and reapply every 1-2 hours. No sunscreen is truly water ''proof'' and it will wash away with sweat, swimming and rubbing. 4. Wear tightly woven, loose fitting (cooler) long sleeved clothing, UV-blocking sun glasses (eyes need protection as well) and wide-brimmed hatwear (no straw hats with holes because light still getsthrough). Strongly recommended *Neutrogena Pure and Free Baby SPF 60 (have separate face and body lotions) orCeraVe AM facial lotion (with SPF 30). If looking for non toxic alternatives-look for non-bree particle zinc. Product examples; Think sport, Think baby, Pb, [employer] botanicals, [employer], [place] baby. "Baby" products can be used for all ages. documented in this encounter Progress Notes * Kylah Chambers PA-C - 12/01/2023 4:00 PM EST SUBJECTIVE: History of Present Illness: Jayro Plata is a 78 year old male seen today for follow up of lesion/full skin exam. Previous office visit: 09/23/2022 Last attempted treatments include: cryo to AKs Lesion on L hand, present for 5+ months. Asymptomatic, tried Efudex for 2 weeks and did become inflamed but did not resolve. Manager Change Documentation Patient offered raw stock dyeing machine tender and declined. REVIEW OF SYSTEMS: SKIN: No other new or changing moles. HEME/LYMPH: No new or enlarging lumps or bumps. CONSTITUTIONAL: No nausea, vomiting, fevers, chills, diarrhea. No recent unintended weight loss, night sweats, appetite or malaise. RESP: negative MSK/EXT: Negative or as per HPI GI: negative CV: Negative or as per HPI Rest of systems are negative or as per HPI SKIN CANCER HX: basal cell carcinoma (site unknown), actinic keratosis (scalp/face Efudex 09/25) Reviewed, same day as visit, 0 [facility] Dermatology lab work(s)/pathology report(s) as well as those sent by referring provider prior to seeing pt. MEDICA TIONS: Current Outpatient Medications Medication Sig Dispense Refill Aspirin 81 MG Tablet Take 1 Tablet by mouth in the morning. Cholecalciferol (VITAMIN D3) 2000 units Capsule Take 1 Capsule by mouth in the morning. PATADAY 0.2 % ophthalmic solution PUT ONE DROP IN BOTH EYES ONCE DAILY. 12 Ketotifen Fumarate 0.025 % Ophthalmic Solution 1 Drop in the morning and 1 Drop before bedtime. Coenzyme Q10 (COQ10) 200 MG CAPS Take by mouth. Krill Oil 350 MG CAPS Take by mouth. Fluticasone Propionate 50 MCG/ACT Nasal Suspension Administer 1 [place] into nostril daily as needed for Rhinitis. Levocetirizine Dihydrochloride 5 MG Oral Tablet Take 0.5 Tablets by mouth at bedtime as needed for Rhinitis. Ventolin HFA 108 (90 Base) MCG/ACT Inhalation Aerosol Solution Inhale by mouth 2 Puffs every 4 hours as needed for Shortness of Breath or Wheezing. 18 g 0 Desonide 0.05 % External Cream Apply 2x daily for scale on eyebrows and chin when flaring until resolved 30 g 0 Potassium Chloride Stephanie ER 10 MEQ Oral Tablet Extended Release (Klor-Con M10) Take 1 Tablet by mouth in the morning. 90 Tablet 3 Metoprolol Succinate ER 25 MG Oral Tablet Extended Release 24 Hour (toPROL XL) Take 0.5 Tablets by mouth in the morning. 50 Tablet 3 Omeprazole Magnesium 20 MG Oral Tablet Delayed Release (PriLOSEC OTC) Take 1 Tablet by mouth as needed for Heartburn. Tadalafil 10 MG Oral Tablet Take 1 Tablet by mouth daily as needed. Rosuvastatin Calcium 40 MG Oral Tablet (Crestor) TAKE 1 TABLET BY MOUTH EVERY DAY 90 Tablet 3 No current facility-administered medications for this visit. ALLERG IES: Other allergy (see comments) and Tetracyclines & related OBJECT JENNIFER: GEN: alert, no distress, appears oriented, pleasant and cooperative. SKIN: Detailed exam of hair, face including lids and lips, neck, chest, abdomen, back, bilateral upper ext. (arm, hand, fingers), bilateral lower ext. (leg, foot, toes), palpation of scalp, fingernails, toenails, inguinal areas, groin (penis, scrotum and perineum), buttocks and anus completed: 1A. L dorsal hand-6x4mm hyperkeratotic white scaly papule. 2. Scalp/R superior helix/L dorsal hand-9 2-5mm pink scaly papules. 3. Face/trunk/bilat arms and legs-Many well defined light to medium brown homogenous stellate macules. ASSESS MENT/PLAN: 1A. hAK, r/o SCC on L dorsal hand-Tangential biopsy of the lesion noted above to confirm diagnosis.The procedure, risks (to include but not limited to pain, bleeding, infection and scarring), benefits, alternatives and expected outcomes were discussed with the patient and verbal consent was obtained. Time out called. Patient identified, procedure verified, site identified and verified. Patient and staff present in agreement. Area prepped with alcohol and anesthetized using 2cc of 0.5% lidocaine with epinephrine at 1:200,000 concentration. Tangential biopsy of lesion performed. 20% AlCl and bandaging applied. Specimen sent to pathology. Patient instructed in routine post-op care and given wound care brochure. 2. Actinic keratoses (x9) on scalp/R superior helix/L dorsal hand-Cryosurgery explained to the patient. Discussed risk of blistering, crusting, infection, scarring, reoccurrence of lesions, hypopigmentation, post inflammatory hyperpigmentation with pt prior to procedure. Verbal consent obtained. Time out called immediately prior to procedure and patient identification and site verified. Cryo therapy performed with Liquid Nitrogen via cryo spray unit to lesion (s) noted above. Location noted in physical exam. Post op course explained. 3. Lentigines on face/trunk/bilat arms and legs-no tx needed, pt given reassurance. Skin cancer brochure given at previous office visit (pt declined need for another) and ABCDE's discussed with patient. Annual full body skin examination (unless I recommended otherwise), self-examination, and sun protection (SPF 30+ daily to sun exposed areas, with reapplication every 1-2 hours when out in sun for long periods of time) advised and discussed. Recommended sooner follow up for new or changing lesions. These changes include rapid enlargement, changes in color or shape or symptoms, bleeding, or other concerns. The common features and behavior of non-melanoma skin cancers (e.g. BCC/SCC) as well as the ABCDEs and ugly duckling features of melanoma were also reviewed. Patient alone today. Photo(s) of #1-3 taken, pt verbally consented to having photo(s) taken. Follow-up: 1 year for full skin exam Applicable photos (if any) and chart reviewed by Dr. Cedric Mccullough. Presumed diagnoses, expected natural histories, and management options discussed with the patient at length. Questions were addressed and anticipatory guidance provided. They were instructed to contact me if additional questions, concerns, or problems develop in the interim. -There were no barriers to learning and no other pain was related to today's visit. The patient and/or person accompanying patient demonstrates understanding of the visit and treatment. Kylah Chambers PA-C 12/01/2023 3:45 PM Dermatology [address] [place]ie [place] [address] documented in this encounter Nursing Notes * Sarah Beth Sauceda LPN - 12/01/2023 3:33 PM EST Chief Complaint Patient presents with Skin Check Concern: area on left hand documented in this encounter Plan of Treatment Upcoming Encounters Date Type Department Care Team (Late st Contact Info) Description 02/17/2024 10:00 AM EDT Office Visit Cardiology, [facility] [address] [facility] [place] [address] Ivy Carrillo PA-C [address] [place] [address] 03/19/2024 10:30 AM EDT Office Visit Family Medicine [address] [place] [phone] Maty Irizarry DO [address] [place] [address] [place] [address] 09/10/2024 10:30 AM EST Nurse Only Ancillary [address] [place] [address] [place], Nurse Annual Wellness [address] [place] [address] [place] [address] 12/06/2024 11:00 AM EST Office Visit Dermatology [address] [place] [address] Kylah Chambers PA-C [address] [place] [address] [place] [address] Pending Results Name Type Priority Associated Diagnoses Date /Time SURGICAL PATHOLOGY Pathology Routine Neoplasm of uncertain behavior of skin 12/01/2023 4:05 PM EST Health Maintenance Due Date Last Done Comments [...] as of this encounter Visit Diagnoses Diagnosis Neoplasm of uncertain behavior of skin- Primary Skin exam, screening for cancer Screening for malignant neoplasm of the skin Lentigines Other dyschromia Actinic keratosis documented in this encounter Care Teams Corporate Sales Representative Relationship Specialty Start Date End Date Maty Irizarry DO [address] [place] [address] [place] [phone] PCP - General Internal Medicine 07/20/19 documented as of this encounter
--- OUTSIDE RECORDS SUMMARY | 2024-02-12 01:45 | External Medical Summary | Summary of Care ---
Author Name Unknown Organization [facility] [address] [facility] [address] Phone [phone] Care Team Providers Care Manufacturing Team Leader Name Role Phone Maty Irizarry DO Primary Care Provider [phone] Reason for Visit * Reason Onset Date Comments Medication Question 12/16/2023 Encounter Details Date Type Department Care Team (Late st Contact Info) Description 12/16/2023 Telephone Derm[address] [place] [address] Scott Chambers PA-C [address] [place] [address] [place] [address] Medication Question Allergies Active Allergy Reactions Criticality [...] Propionate 50 MCG/ACT Nasal Suspension Administer 1 [place] into nostril daily as needed for Rhinitis. [...] MCG/0.3 mL, 12 YRS AND ABOVE, IM (Ocutec-Comirnat) 07/10/2023 COVID-19, mRNA, LNP-s, PF, B ooster, [...] refill request. * Telephone Encounter - Scott Cahmbers PA-C - 12/16/2023 1:44 PM EDT Please call patient to see if he needs this medication and the desonide cream? The metrogel would be applied to the entire face at night for rosacea/red face. Scott CHAUHAN PA-C * Telephone Encounter - Harriet Carrasquillo CPhT - 12/16/2023 1:16 PM EDT Pt calling requesting the following medication below that is listed as "Historical". The following information was provided: Medication Name: metronidazole Strength: 1% Directions: ?? - use on face - pt said he was never given specific directions for old Dr Preferred Quantity: n/a Previous Prescriber: heriberto manager energy- Dr. Jimbo Merino Preferred Pharmacy: [id number] [id number] [facility] Please review and approve if appropriate. Thank you, Harriet Carrasquillo CPht Gaming Investigator II [facility] ([facility]) (formerly Telepharm[facility]) 12/16/2023, 1:17 PM documented in this encounter Plan of Treatment Upcoming Encounters Date Type Department Care Team (Late st Contact Info) Description 02/17/2024 10:00 AM EDT Office Visit Cardiology, [address] [place] [address] Ivy Carrillo PA-C [address] [place] [address] [place] [address] 03/19/2024 10:30 AM EDT Office Visit Family Medicine [address] [place] [phone] Maty [address] [place] [address] 09/10/2024 10:30 AM EST Nurse Only Ancillary [address] [place] [address] [place], Nurse Annual Wellness [address] [place] [address] [place] [address] 12/06/2024 11:00 AM EST Office Visit Dermatology [address] [place] [address] Scott Chambers PA-C [address] [place] [address] [place] [address] Health Maintenance Due Date Last Done Comments [...] Primary documented in this encounter Care Teams Manufacturing Team Leader Relationship Specialty Start Date End Date Maty Irizarry DO [address] [place] [address] [place] [address] PCP - General Internal Medicine 07/20/19 documented as of this encounter
--- OUTSIDE RECORDS SUMMARY | 2024-02-12 01:45 | External Medical Summary | Summary of Care ---
Author Name Unknown Organization [facility] Address [address] [place] [address] Phone [phone] Care Team Providers Care Sample Weaver Name Role Phone Maty Irizarry DO Primary Care Provider Reason for Visit * Reason Comments Skin Check Concern: area on lef t hand Encounter Details Date Type Department Care Team (Late st Contact Info) Description 12/01/2023 4:00 PM EST Office Visit Dermatology [address] [place] [address] Kylah Chambers PA-C [address] [place] [address] [place] [address] Neoplasm of uncertain behavior of skin*; Skin exam, screening for cancer; Lentigines; Actinic keratosis Allergies Active Allergy Reactions Criticality Noted Date Comments Other Allergy (See Comments) 08/30/2019 "have a long list but non that are life threatening but Tetracycline is the only med allergy" Tetracyclines & Related Rash 07/29/2017 documented as of this encounter (statuses as of 12/02/2023) Medications Medication Sig Dispensed Refills Start Date [...] Propionate 50 MCG/ACT Nasal Suspension Administer 1 [place] into nostril daily as needed for Rhinitis. [...] as of this encounter (statuses as of 12/02/2023) Active Problems Problem Noted Date Diagnosed Date [...] as of this encounter (statuses as of 12/02/2023) Resolved Problems Problem Noted Date Diagnosed Date Resolved Date Asymptomatic stenosis of left carotid artery 9 07/25/2020 Glaucoma of both eyes 12/05/20172019 documented as of this encounter (statuses as of 12/02/2023) Immunizations Name Administration Dates Next Due COVID-19 [...] either or our main Dermatology office in [place] at [phone]. If an emergency, please go to your [...] Product examples; Think sport, Think baby, Pb, [employer] botanicals, [employer], [place] baby. "Baby" products can be used for all ages. documented in this encounter Progress Notes * Cedric Mccullough MD - 12/02/2023 8:08 AM EST I have seen and examined the patient via teledermatology review of chart note and photos with Kylah Chambers PA-C. I have reviewed and agree with the assessment and plan. N * Kylah Chambers PA-C - 12/01/2023 4:00 [...] did become inflamed but did not resolve. Doctor Podiatric Medicine Documentation Patient offered resort manager and declined. REVIEW OF SYSTEMS: SKIN: No [...] Efudex 09/25) Reviewed, same day as visit, [address] [place] [address] Dermatology lab work(s)/pathology report(s) as well as [...] Propionate 50 MCG/ACT Nasal Suspension Administer 1 [place] into nostril daily as needed for Rhinitis. [...] Kylah Chambers PA-C 12/01/2023 3:45 PM Dermatology [address] [place]ie [place] [address] documented in this encounter Nursing Notes * Sarah Beth Sauceda LPN - 12/01/2023 3:33 PM EST Chief Complaint Patient presents with Skin Check Concern: area on left hand documented in this encounter Plan of Treatment Upcoming Encounters Date Type Department Care Team (Late st Contact Info) Description 02/17/2024 10:00 AM EDT Office Visit Cardiology, [facility] [address] [facility] [place] [address] Ivy Carrillo PA-C [address] [place] [address] [place] [address] 03/19/2024 10:30 AM EDT Office Visit Family Medicine [address] [place] [phone] Maty Irizarry[address] [place] [address] 09/10/2024 10:30 AM EST Nurse Only Ancillary [address] [place] [address] [place], Nurse Annual [address] [place] [address] 12/06/2024 11:00 AM EST Office Visit Dermatology [address] [place] [address] Kylah Chambers PA-C [address] [place] [address] [place] [address] Pending Results Name Type Priority Associated Diagnoses [...] keratosis documented in this encounter Care Teams Sample Weaver Relationship Specialty Start Date End Date Maty Irizarry DO [address] [place] [address] [place] [address] PCP - General Internal Medicine 07/20/19 documented as of this encounter
--- OUTSIDE RECORDS SUMMARY | 2024-02-12 01:45 | External Medical Summary | Summary of Care ---
Author Name Unknown Organization [facility] Address [address] [facility] [address] Phone [phone] Care Team Providers Care Entry Level Mechanical Engineer Name Role Phone Maty Irizarry DO Primary Care Provider Reason for Visit * Reason Onset Date Comments Medication Question 12/16/2023 Encounter Details Date Type Department Care Team (Late st Contact Info) Description 12/16/2023 Telephone Dermatology [address] [place] [address] Kylah Chambers PA-C [address] [place] [address] [place] [address] Medication Question Allergies Active Allergy Reactions Criticality [...] Propionate 50 MCG/ACT Nasal Suspension Administer 1 [place] into nostril daily as needed for Rhinitis. [...] MCG/0.3 mL, 12 YRS AND ABOVE, IM ([facility] [facility]) 07/10/2023 COVID-19, mRNA, LNP-s, PF, B ooster, [...] encounter Miscellaneous Notes * Telephone Encounter - Tahira Kay LPN [...] [place] Preferred Quantity: n/a Previous Prescriber: heriberto change management consultant- Dr. Jimbo Merino [id number] [id number] [place] Please review and approve if appropriate. Thank you, Harriet Carrasquillo CPht Manager Fixed Income II [facility] ([facility] (formerly [facility]) 12/16/2023, 1:17 PM documented in this encounter Plan of Treatment Upcoming Encounters Date Type Department Care Team (Late st Contact Info) Description 02/17/2024 10:00 AM EDT Office Visit Cardiology, [facility] [address] [facility] [place] [address] Ivy Carrillo PA-C [address] [facility] [place] [address] 03/19/2024 10:30 AM EDT Office Visit Family Medicine [address] [place] [phone] Maty Irizarry[address] [place] [address] 09/10/2024 10:30 AM EST Nurse Only Ancillary [address] [place] [address] [place], Nurse Annual [address] [place] [address] 12/06/2024 11:00 AM EST Office Visit Dermatology [address] [place] [address] Kylah Chambers PA-C [address] [place] [address] [place] [address] Health Maintenance Due Date Last Done Comments GFR 07/22/2024 07/22/2023, 06/2023, 03/18/2023, Additional history exists HbA1c 08/19/2024 08/19/2023, 11/0 05/2022, 01/09/2022, Additional history exists Depression Screening [...] filedocumented as of this encounter Care Teams Entry Level Mechanical Engineer Relationship Specialty Start Date End Date Maty Irizarry DO [address] [place] [address] [place] [phone] PCP - General Internal Medicine 07/20/19 documented as of this encounter
--- OUTSIDE RECORDS SUMMARY | 2024-02-12 01:46 | External Medical Summary | Summary of Care ---
Author Name Unknown Organization [facility] Address [address] [place] [address] Phone [phone] Care Team Providers Care Caregiver Services Home Name Role Phone Maty Irizarry DO Primary Care Provider [phone] Reason for Referral * Evaluate & Treat - Unlimited Visits (Within 10 days (routine)) - Authorized Specialty Diagnoses / Procedures Referred By Peace sepulveda Referred To Contact Orthopaedic Surgery / Orthopedics Diagnoses Right shoulder pain, unspecified chronicity Maty Irizarry DO [address] [place] [address] [place] [address] Referral ID Status Reason Start Date Expiration Date Visits Requested Visits Authorized [id number] Authorized Specialty Services Required 10/28/[phone] [...] Contact Info) Description 10/28/2023 Telephone Family Medicine [address] [place] [phone] [place] [address] Advice; Appointment (Ortho ) Allergies Active Allergy Reactions Criticality Noted Date Comments Other Allergy (See Comments) 08/30/2019 "have a long list but non that are life threatening but Tetracycline is the only med allergy" Tetracyclines & Related Rash 07/29/2017 documented as of this encounter (statuses as of 10/29/2023) Medications Medication Sig Dispensed Refills Start Date [...] Propionate 50 MCG/ACT Nasal Suspension Administer 1 [place] into nostril daily as needed for Rhinitis. [...] as of this encounter (statuses as of 10/29/2023) Active Problems Problem Noted Date Diagnosed Date [...] as of this encounter (statuses as of 10/29/2023) Resolved Problems Problem Noted Date Diagnosed Date Resolved Date Asymptomatic stenosis of left carotid artery 9 07/25/2020 Glaucoma of both eyes 12/05/20172019 documented as of this encounter (statuses as of 10/29/2023) Immunizations Name Administration Dates Next Due COVID-19 mRNA, LNP-s, No Pre serve, 2-Dose Series (Moderna) 11/16/2020,10/19/2020 COVID-19, MRNA-LNP, 23-24, P F, 30 MCG/0.3 mL, 12 YRS AND ABOVE, IM (Sendoid-Comirnat) 07/10/2023 COVID-19, mRNA, LNP-s, PF, B ooster, [...] Telephone Encounter - Karissa Azul, SAGAR - 10/29/2023 10:06 AM EST I left [...] he would ban a referral sent to [facility]. He had his left shoulder rotator [...] 12/01/2023 4:00 PM EST Office Visit Dermatology [address] [place] [address] Kylah Chambers PA-C [address] [place] [address] [place] [address] 01/23/2024 2:00 PM EDT Office Visit Cardiology, [facility] [address] [facility] [place] [address] Ivy Carrillo PA-C [address] [place] [address] [place] [address] 03/19/2024 10:30 AM EDT Office Visit Family Medicine [address] [place] [phone] Maty Irizarry, [address] [place] [address] 09/10/2024 10:30 AM EST Nurse Only Ancillary [address] [place] [address] [place], Nurse Annual [address] [place] [address] Scheduled Referrals Name Type Priority Associated Diagnoses [...] Primary documented in this encounter Care Teams Caregiver Services Home Relationship Specialty Start Date End Date Maty Irizarry DO [address] [place] [address] [place] [address] PCP - General Internal Medicine 07/20/19 documented as of this encounter
--- OUTSIDE RECORDS SUMMARY | 2024-02-12 01:46 | External Medical Summary | Summary of Care ---
Author Name Unknown Organization [facility] Address [address] [place] [address] Phone [phone] Care Team Providers Care Turnstile Attendant Name Role Phone Maty Irizarry DO Primary Care Provider Encounter Details Date Type Department Care Team (Late st Contact Info) Description 09/22/2023 Orders Only Outcomes Research Department [address] [place] [address] Sweta Awad CHRA [facility] Other*[id number] Allergies Active Allergy Reactions Criticality Noted Date Comments Other Allergy (See Comments) 08/30/2019 "have a long list but non that are life threatening but Tetracycline is the only med allergy" Tetracyclines & Related Rash 07/29/2017 documented as of this encounter (statuses as of 09/22/2023) Medications Medication Sig Dispensed Refills Start Date [...] Propionate 50 MCG/ACT Nasal Suspension Administer 1 [place] into nostril daily as needed for Rhinitis. 0 Active Levocetirizine Dihydrochloride 5 MG Oral Tablet Take 0.5 Tablets by mouth at bedtime as needed for Rhinitis. 0 Active Ventolin HFA 108 (90 Base) MCG/ACT Inhalation Aerosol Solution Inhale by mouth 2 Puffs every 4 hours as needed for Shortness of Breath or Wheezing. 18 g 0 02/06/2022 Active Rosuvastatin Calcium 40 MG Oral Tablet (Crestor)Indications:D yslipidemia, goal LDL below 70 TAKE 1 TABLET BY MOUTH EVERY DAY 90 Tablet 3 09/20/2022 Active Desonide 0.05 % External CreamIndications:H/O seborrheic dermatitis Apply 2x daily for scale on eyebrows and chin when flaring until resolved 30 g 0 09/23/2022 Active Potassium Chloride Setphanie ER 10 MEQ Oral Tablet Extended Release [...] mouth daily as needed. 0 08/24/2023 Active documented as of this encounter (statuses as of 09/22/2023) Active Problems Problem Noted Date Diagnosed Date [...] as of this encounter (statuses as of 09/22/2023) Resolved Problems Problem Noted Date Diagnosed Date Resolved Date Asymptomatic stenosis of left carotid artery 9 07/25/2020 Glaucoma of both eyes 12/05/20172019 documented as of this encounter (statuses as of 09/22/2023) Immunizations Name Administration Dates Next Due COVID-19 mRNA, LNP-s, No Pre serve, 2-Dose Series (Moderna) 11/16/2020,10/19/2020 COVID-19, MRNA-LNP, 23-24, P F, 30 MCG/0.3 mL, 12 YRS AND ABOVE, IM (AndroJek-ComirnatPeerJ) 07/10/2023 COVID-19, mRNA, LNP-s, PF, B ooster, [...] on file documented as of this encounter Plan of Treatment Upcoming Encounters Date Type Department Care Team (Late st Contact Info) Description 12/01/2023 4:00 PM EST Office Visit Dermatology [address] [place] [address] Kylah Chambers PA-C [address] [place] [address] [place] [address] 01/23/2024 2:00 PM EDT Office Visit Cardiology, [facility] 132 [facility] [place] [address] Ivy Carrillo PA-C [address] [facility] [place] [address] 03/19/2024 10:30 AM EDT Office Visit Family Medicine [address] [place] [phone] Maty Irizarry DO [address] [place] [address] [place] [address] 09/10/2024 10:30 AM EST Nurse Only Ancillary [address] [place] [address] [place], Nurse Annual [address] [place] [address] Scheduled Orders Name Type Priority Associated Diagnoses Orde r Schedule MYCODE SUBSEQUENT ADULT Lab Routine My[facility] Research Other*[id number] Every 6 Months for 2 Occurrences starting 09/22/2023 until 10/11/2024 Health Maintenance Due Date Last Done Comments GFR 07/22/2024 07/22/2023, 06/2023, 03/18/2023, Additional history exists HbA1c 08/19/2024 08/19/2023, 0 05/2022, 01/09/2022, Additional history exists Depression Screening [...] as of this encounter Visit Diagnoses Diagnosis [facility] Research Other*[id number] documented in this encounter Care Teams Turnstile Attendant Relationship Specialty Start Date End Date Maty Irizarry DO [address] [place] [address] [place] [address] PCP - General Internal Medicine 07/20/19 documented as of this encounter
--- OUTSIDE RECORDS SUMMARY | 2024-02-12 01:46 | External Medical Summary | Summary of Care ---
Author Name Unknown Organization [facility] Address [address] [place] [facility] [place] [place] [address] Phone [phone] Care Team Providers Care Hearing Care Professional Name Role Phone Maty Irizarry DO Primary Care Provider Reason for Visit * Reason Comments eRx-Medication Refill Encounter Details Date Type Department Care Team (Late st Contact Info) Description 10/26/2023 Refill Cardiology, [facility] [address] [place] [address] Corbin Becker MD [address] [place] [address] Dyslipidemia, goal LDL below 70 Allergies Active Allergy Reactions Criticality Noted Date Comments Other Allergy (See Comments) 08/30/2019 "have a long list but non that are life threatening but Tetracycline is the only med allergy" Tetracyclines & Related Rash 07/29/2017 documented as of this encounter (statuses as of 10/27/2023) Medications Medication Sig Dispensed Refills Start Date End Date Status Aspirin 81 MG Tablet Take 1 Tablet by mouth in the morning. 0 Active Cholecalciferol (VITAMIN D3) 2000 units Capsule Take 1 Capsule by mouth in the morning. 0 Active PATADAY 0.2 % ophthalmic solution PUT ONE DROP IN BOTH EYES ONCE DAILY. 12 04/01/201 9 Active Ketotifen Fumarate 0.025 % Ophthalmic Solution 1 Drop in the morning and 1 Drop before bedtime. 0 Active Coenzyme Q10 (COQ10) 200 MG CAPS Take by mouth. 0 Active Krill Oil 350 MG CAPS Take by mouth. 0 Active Fluticasone Propionate 50 MCG/ACT Nasal Suspension Administer 1 [place] into nostril daily as needed for Rhinitis. 0 Active Levocetirizine Dihydrochloride 5 MG Oral Tablet Take 0.5 Tablets by mouth at bedtime as needed for Rhinitis. 0 Active Ventolin HFA 108 (90 Base) MCG/ACT Inhalation Aerosol Solution Inhale by mouth 2 Puffs every 4 hours as needed for Shortness of Breath or Wheezing. 18 g 0 2 Active Desonide 0.05 % External CreamIndications:H/O seborrheic dermatitis Apply 2x daily for scale on eyebrows and chin when flaring until resolved 30 g 0 2 Active Potassium Chloride Stephanie ER 10 MEQ Oral Tablet Extended Release (Klor-Con M10) Take 1 Tablet by mouth in the morning. 90 Tablet 3 3 Active Metoprolol Succinate ER 25 MG Oral Tablet Extended Release 24 Hour (toPROL XL)Indications:HTN, goal below 140/90 Take 0.5 Tablets by mouth in the morning. 50 Tablet 3 3 Active Omeprazole Magnesium 20 MG Oral Tablet Delayed Release (PriLOSEC OTC) Take 1 Tablet by mouth as needed for Heartburn. 0 Active Tadalafil 10 MG Oral Tablet Take 1 Tablet by mouth daily as needed. 0 3 Active Rosuvastatin Calcium 40 MG Oral Tablet (Crestor)Indications :Dyslipidemia, goal LDL below 70 TAKE 1 TABLET BY MOUTH EVERY DAY 90 Tablet 3 4 Active Rosuvastatin Calcium 40 MG Oral Tablet (Crestor)Indications :Dyslipidemia, goal LDL below 70 TAKE 1 TABLET BY MOUTH EVERY DAY 90 Tablet 3 2 10/27/19 24 Discontinued documented as of this encounter (statuses as of 10/27/2023) Active Problems Problem Noted Date Diagnosed Date [...] as of this encounter (statuses as of 10/27/2023) Resolved Problems Problem Noted Date Diagnosed Date Resolved Date Asymptomatic stenosis of left carotid artery 9 07/25/2020 Glaucoma of both eyes 12/05/20172019 documented as of this encounter (statuses as of 10/27/2023) Immunizations Name Administration Dates Next Due COVID-19 [...] encounter Miscellaneous Notes * Telephone Encounter - Ivy Carrillo PA-C - 10/27/2023 2:22 PM EST Signed Prescriptions: Disp Refills Rosuvastatin Calcium 40 MG Oral Tablet (Cr*90 Tab*3 Sig: TAKE 1 TABLET BY MOUTH EVERY DAYAuthorizing Provider: IVY CARRILLO * Telephone Encounter - iJa Skaggs COT - 10/27/2023 1:54 PM ESTPending Prescriptions: Disp Refills Rosuvastatin Calcium 40 MG Oral Tablet [Ph*90 Tab*3 Sig: TAKE 1 TABLET BY MOUTH EVERY DAY * Telephone Encounter - Jia Skaggs COT - 10/27/2023 1:54 PM EST Did you pend patient's preferred pharmacy and medication before forwarding?yes Pharmacy: [id number] [facility] Pending Prescriptions: Disp Refills Rosuvastatin Calcium 40 MG Oral Tablet (C*90 Tab*3 Sig: TAKE 1 TABLET BY MOUTH EVERY DAY Last Visit: 07/24/2023 (in office), Visit date not found (telemedicine) Next Visit: 01/23/2024 If no future appointments scheduled, and last appointment is greater than a year ago, please schedule patient for a follow-up appointment Last date the medication was ordered: 09-20-2022 Is this request for a controlled substance?No [...] 12/01/2023 4:00 PM EST Office Visit Dermatology [address] [place] [address] Kylah Chambers PA-C [address] [place] [address] [place] [address] 01/23/2024 2:00 PM EDT Office Visit Cardiology, [facility] [address] [place] [address] Ivy Carrillo PA-C [address] [place] [phone] 03/19/2024 10:30 AM EDT Office Visit Family Medicine [address] [place] [phone] Maty Irizarry, [address] [place] [address] 09/10/2024 10:30 AM EST Nurse Only Ancillary [address] [place] [address] [place], Nurse Annual [address] [place] [address] Health Maintenance Due Date Last Done Comments [...] as of this encounter Visit Diagnoses Diagnosis Dyslipidemia, goal LDL below 70 Other and unspecified hyperlipidemia documented in this encounter Care Teams Hearing Care Professional Relationship Specialty Start Date End Date Maty Irizarry DO [address] [place] [address] [place] [phone] PCP - General Internal Medicine 07/20/19 documented as of this encounter
--- OUTSIDE RECORDS SUMMARY | 2024-02-12 01:46 | External Medical Summary | Summary of Care ---
Author Name Unknown Organization [facility] Address [address] [place] [address] Phone [phone] Care Team Providers Care Child Care Cook Name Role Phone Maty Irizarry DO Primary Care Provider [phone] Reason for Visit * Reason Onset Date Comments Advice 07/09/2023 Encounter Details Date Type Department Care Team (Late st Contact Info) Description 07/09/2023 Telephone Family Medicine [address] [phone] Maty Irizarry DO [address] [place] [address] [place] [address] Advice Allergies Active Allergy Reactions Criticality Noted Date Comments Other Allergy (See Comments) 08/30/2019 "have a long list but non that are life threatening but Tetracycline is the only med allergy" Tetracyclines & Related Rash 07/29/2017 documented as of this encounter (statuses as of 10/08/2023) Medications Medication Sig Dispensed Refills Start Date [...] Propionate 50 MCG/ACT Nasal Suspension Administer 1 [place] into nostril daily as needed for Rhinitis. [...] the morning. 50 Tablet 3 06/11/2023 Active documented as of this encounter (statuses as of 10/08/2023) Active Problems Problem Noted Date Diagnosed Date [...] as of this encounter (statuses as of 10/08/2023) Resolved Problems Problem Noted Date Diagnosed Date Resolved Date Asymptomatic stenosis of left carotid artery 9 07/25/2020 Glaucoma of both eyes 12/05/20172019 documented as of this encounter (statuses as of 10/08/2023) Immunizations Name Administration Dates Next Due COVID-19 mRNA, LNP-s, No Pre serve, 2-Dose Series (Moderna) 11/16/2020,10/19/2020 COVID-19, mRNA, LNP-s, PF, B ooster, 100mcg/0.5mg [...] Telephone Encounter - Brandi Boss LPN - 07/09/2023 2:13 PM EDT Pt calling with c/o pain in his back on left side above hip. On Friday he had cramp in leg, this resolved. Now hip hurts like a muscle spasm. He went to [facility] on Friday and prescribed prednisone. He is also taking tylenol. He is not getting any relief pain worsens when walking. Scheduled an appt with Ana on 07/10 at :20. documented in this encounter Plan of Treatment Upcoming Encounters Date Type Department Care Team (Late st Contact Info) Description 12/01/2023 4:00 PM EST Office Visit Dermatology [address] [place] [address] Kylah Chambers PA-C [address] [place] [address] [place] [address] 01/23/2024 2:00 PM EDT Office Visit Cardiology, [facility] 132 [facility] [place] [address] Ivy Carrillo PA-C [address] [place] [address] 03/19/2024 10:30 AM EDT Office Visit Family Medicine [address] [place] [phone] Maty Irizarry DO [address] [place] [address] [place] [address] 09/10/2024 10:30 AM EST Nurse Only Ancillary [place] [address] [place] [address] [place], Nurse Annual [address] [place] [address] Health Maintenance Due Date Last Done Comments [...] filedocumented as of this encounter Care Teams Child Care Cook Relationship Specialty Start Date End Date Maty Irizarry DO [address] [place] [address] [place] [address] PCP - General Internal Medicine 07/20/19 documented as of this encounter
[2024-02-12] MEDS: ONDANSETRON INJ 2 MG/ML 2 ML VIAL IV STA (03:33)
[2024-02-12] MEDS: HYDROmorphone INJ 1 MG/ML SYRINGE IV STA (03:38)
[2024-02-12] MEDS: KETOROLAC 30 MG/ML VIAL IV ONE (03:38)
[2024-02-12] MEDS: LORazepam 1 MG/1 ML SYR ED Inj Use IV STA (03:38)
[2024-02-12 04:16] LABS: Appearance Urine Clear (Clear); Bacteria Urine Automated None Seen (None Seen); Bilirubin Urine Negative (Negative); Blood Urine Trace (Negative); Cast Urine Automated 0-2 /lpf (0-2); Color Urine Yellow; Epithelial Cell Urine Auto 0-2 /hpf (0-2); Glucose Urine UA 3+ (Negative); Ketones Urine Trace (Negative); Leukocyte Esterase Urine Negative (Negative); Nitrite Urine Negative (Negative); Protein Urine Trace (Negative); Specific Gravity Urine 1.032 (1.000-1.030); Urobilinogen Urine Negative (Negative); WBC Urine Automated 0-5 /hpf (0-5)
--- NOTE | 2024-02-12 05:05 | History & Physical Report ---
Date of Service February 12, 2024 Assessment & Plan (1) Back pain: Plan: 78-year-old male with past medica history significant for hyperlipidemia, prediabetes, paroxysmal supraventricular tachycardia, hypertension, GERD, allergic conjunctivitis of both eyes presents with severe back pain.Patient states he is having pain since January but got worse since yesterday. Having some difficulty ambulation. No bowel or bladder bladder incontinence. No other complaints. No fevers. No chest pain or shortness of breath. No abdominal pain. No headache. No blurred vision. No earache or runny nose. No sore throat. Appetite is okay. Hemodynamics okay. Severe intractable back pain Patient was in the ER earlier today and had an MRI scan He was given dose of Solu-Medrol and was discharged on short course of prednisone and naproxen as needed Comes back with intractable back pain Will admit to medical floor Pain control Consult orthospine/pain management Close monitor Prediabetes follow HbA1c levels Follow the sugars. Paroxysmal supraventricular tachycardia On metoprolol succinate Hypertension On metoprolol succinate Hyperlipidemia On statin DVT prophylaxis Lovenox Disposition Medical floor Full code History of Present Illness Chief Complaint: Severe back pain Primary Care Provider: Maty Irizarry DO 78-year-old male with past medica history significant for hyperlipidemia, prediabetes, paroxysmal supraventricular tachycardia, hypertension, GERD, allergic conjunctivitis of both eyes presents with severe back pain.Patient states he is having pain since January but got worse since yesterday. Having some difficulty ambulation. No bowel or bladder bladder incontinence. No other com plaints. No fevers. No chest pain or shortness of breath. No abdominal pain. No headache. No blurred vision. No earache or runny nose. No sore throat. Appetite is okay. Hemodynamics okay. Past medical history. As mentioned above. Past surgical history. Cystoscopy. Cataract surgery. Repair of left ruptured rotator cuff. Revision of upper eyelid. Lumbar fusion surgery in 07/2017. L umbar fusion spinal surgery 07/2023. Tear duct system surgery right side 2018. Social history. . Quit smoking 2008. Smoked 0.3 packs a day for 44 years. Alcohol 2 beers per day. No drug use. Family history. Mother had breast cancer. Diabetes. Father had cancer. Heart disease. CABG. Renal failure. Sister had gastric cancer. Dementia. Paternal grandfather had heart disease. Maternal grandfather had stroke. Allergies Allergy/AdvReac Type Severity Reaction Status Date / Time tetracycline Allergy Intermediate Mood Verified 09/16/23 11:14 swings, rash Home Medications Medication Instructions Recorded Confirmed Type aspirin 81 mg tablet,delayed 81 mg PO DAILY 02/12/24 02/12/24 History release metoprolol succinate 25 mg 12.5 mg PO DAILY 02/12/24 02/12/24 History tablet,extended release 24 hr olopatadine 0.2 % eye drops 1 drp ophthalmic (eye) DAILY 02/12/24 02/12/24 History (Pataday Once Daily Relief) omeprazole 20 mg tablet,delayed 20 mg PO DAILY PRN Heartburn 02/12/24 02/12/24 History release potassium chloride 10 mEq 10 meq PO DAILY 02/12/24 02/12/24 History tablet,extended release(part/cryst) (Klor-Con M) rosuvastatin 40 mg tablet 40 mg PO DAILY 02/12/24 02/12/24 History tamsulosin 0.4 mg capsule 0.4 mg PO DAILY 02/12/24 02/12/24 History Past Med/Surg History Medical History BPH (benign prostatic hyperplasia) Cardiac murmur Echo 09/2017: Mild MR Hx of gastroesophageal reflux (GERD) Nexium OTC PRN Hx of supraventricular tachycardia Dx after 1st back surgery Follows with Dr. Becker/Jayashree Hypertension Surgical History History of lumbar surgery L3-4 decompression/fusion (07/12/17): Grade view 2, MAC#4, ETT 8.0 at [facility]. Per post-op anesthesia progress note 07/12/2017, "After taking patient ti [sic] ICU for his recovery time he went into a regular, narrow complex svt- hr in 140's- Otherwise not symptomatic. Given adenosine 6 mg IV which broke it for a couple minutes but it again returned. Adenosine 12 mg IV given with good pause and result to heart rate 70's. Patient had had a very short selfLimited run in the OR after induction and from talking to him has probably had in the past. Gave 2 doses of esmolol 10 mg IV and spoke with Dr. Friend from medicine who is being consulted and he requested a 12 lead ECG. Patient will be sent to a monitored bed when his recovery is complete." Patient subsequently established and has since been monitored by [facility] cardiology outpatient* Hx of arthroscopy of shoulder Left RCR Hx of bilateral cataract extraction Hx of cardiac catheterization 1978- no stents - no stents Approximately 15 years ago- no stents Hx of colonoscopy Hx of thumb surgery R/L hands Social History Smoking Status: Former smoker Tobacco Type: Cigarettes and E-cigarettes / Vaping Second Hand Exposure: No; Do You Dip or Chew Tobacco: No; Hx Alcohol Use: Yes Alcohol type: beer Hx Substance Use: No Preferred Language: Tamazight Communication Ability: Effective Finishing Operator Required: No Beliefs That Will Affect Care: None Current Living Situation: Spouse Feels Safe at Home: Yes Assistive Devices: None Review of Systems Review of Systems: All systems reviewed & are unremarkable except as noted in HPI & below Physical Exam Physical Exam: General-Not in distress Head- atraumatic Eyes- PERRL. ENT- oropharynx clear Neck- supple, no JVD. Lungs- clear to auscultation no wheezing or crackles. Heart- regular rhythm; no murmur, no gallop. Abdomen- normal bowel sounds, soft, nontender, no distension Extremities- no pretibial edema, painful movements of lower extremity Neuro- alert, oriented PERRL,no facial palsy; no dysarthria; motor 5/5 bilaterally; Musculoskeletal. Back surgery site no erythema seen. Painful movements of lower extremities. Results & Data Results & Data Vital Signs (Past 12 Hours) Vital Signs Temp Pulse BP Pulse Ox O2 Del Method 02/12/24 02:00 Room Air 02/12/24 01:15 88 02/11/24 23:12 36.8 C 99 H 167/98 H 96 Room Air Diagnostic Findings Laboratory Results Urine Color Yellow 02/12/24 02:30 Urine Appearance Clear (Clear) 02/12/24 02:30 Urine pH 6.0 (4.5-7.5) 02/12/24 02:30 Ur Specific [place] 1.032 (1.000-1.030) H 02/12/24 02:30 Urine Protein Trace (Negative) H 02/12/24 02:30 Urine Glucose (UA) 3+ (Negative) H 02/12/24 02:30 Urine Ketones Trace (Negative) H 02/12/24 02:30 Urine Blood Trace (Negative) H 02/12/24 02:30 Urine Nitrite Negative (Negative) 02/12/24 02:30 Urine Bilirubin Negative (Negative) 02/12/24 02:30 Urine Urobilinogen Negative (Negative) 02/12/24 02:30 Ur Leukocyte Esterase Negative (Negative) 02/12/24 02:30 Urine WBC (Auto) 0-5 /hpf (0-5) 02/12/24 02:30 Urine RBC (Auto) 6-10 /hpf (0-2) H 02/12/24 02:30 U Hyaline Cast (Auto) 0-2 /lpf (0-2) 02/12/24 02:30 U Epithel Cells (Auto) 0-2 /hpf (0-2) 02/12/24 02:30 Urine Bacteria (Auto) None Seen (None Seen) 02/12/24 02:30 Code Status & VTE Plan VTE Prophylaxis Plan VTE Prophylaxis will be ordered: Yes (1) Back pain Back pain laterality: right Back pain location: low back pain Chronicity: acute Sciatica presence: unspecified whether sciatica present Qualified Code(s): M54.50 - Low back pain, unspecified
[2024-02-12] MEDS ORDERED: PANTOprazole 40 MG TAB PO PRN (05:41)
--- NOTE | 2024-02-12 06:04 | Emergency Department Note ---
Impression & Plan Intractable low back pain Admit to the [facility] ED Provider Note NAME: HIREN HAMEED AGE: 78 SEX: Male INFORMANT: Patient ED PROVIDER(S): Nata Morgan DO CHIEF COMPLAINT: Low back pain PLAN: Disposition: admit to the [facility] MEDICAL DECISION MAKING: this is a 78-year-old male patient who presents to the emergency department after having dramatic worsening to his low back pain from earlier today. He was seen here as a patient in the emergency department underwent MRI of the lumbar spine. He was discharged home on naproxen and prednisone. Patient suddenly developed significant and severe worsening right-sided low back pain. He was unable to sit still. He tried taking medications without relief of his discomfort. He was brought here to the emergency department where he was medicated with IV Dilaudid, IV Zofran, IV Toradol and IV Ativan. Patient began develop some pain in his right thigh as he was holding himself up on a chair to try to endure the muscle spasms in his right low back neurological exam was unremarkable. After significant support and reassurance, the patient was able to stay in the bed, relax and finally fell asleep. The case was discussed with the [facility] and they will evaluate for further inpatient care for intractable back pain. Care/management discussed with: Patient and his daughter Level of care consideration(s): After review of the information above and other included data, I feel the patient requires escalation of care to admission to manage his severe low back pain. Triage Nursing notes: reviewed and agree with them. Vital Signs: reviewed and unremarkable Additional History obtained from: The daughter who is at the bedside Differential Diagnosis: Ureteral colic, lumbar paraspinous muscle spasm, lumbar radiculopathy HPI: 78 year old Male arrives for evaluation of right-sided low back pain. patient developed worsening low back pain over the past couple of weeks. He was seen here earlier today and underwent MRI of the lumbar spine. He was medicated with Solu-Medrol, morphine and Zofran. Was discharged home on Percocet, naproxen and prednisone. Patient explains the pain dramatically worsened at home. PAST MEDICAL HISTORY: See Below, PAST SURGICAL HISTORY: See Below, SOCIAL HISTORY: See Below, HOME MEDICATIONS: See list ALLERGIES: See list VITALS: See Below PHYSICAL EXAMINATION: Neck: Supple; no JVD or nuchal rigidity. Heart: Regular rate and rhythm. There is a normal S1 and S2 with no murmurs, clicks, or gallops appreciated. Lungs: Clear to auscultation bilaterally with no wheezes, rales, or rhonchi. Abdomen: Soft, completely nontender, nondistended, with good bowel sounds. There are no palpable pulsatile masses or hepatosplenomegaly. There is no g uarding, rigidity, or rebound noted. Extremities: No evidence of cyanosis, clubbing, or edema. There are easily palpable peripheral pulses. Skin: warm and diaphoretic with good turgor and no rashes. Back: Patient has reproducible discomfort with palpation over the right CVA as well as the right posterior superior iliac spine. This does seem to radiate into his right piriformis muscle. Emergency department treatment: IV Dilaudid, IV Zofran, IV Toradol, IV Ativan Emergency department course: The patient was evaluated in room A-12. A complete history and physical was performed. Records from the emergency department visit earlier today were reviewed. An IV lock was initiated and the patient was medicated with IV Dilaudid and Zofran but he continued to have severe spasms of pain in the right low back. He was given a dose of IV Toradol and IV Ativan. This allowed us to get the patient back into the bed to see if he could rest some. Finally after some time, the patient was able to rest and fell asleep. Any type of slight movement though, the patient was awake with another muscle spasm. I discussed the case with the [facility] Hospitalist and they will evaluate for further inpatient care. Past Med/Surg History Medical History BPH (benign prostatic hyperplasia) Cardiac murmur Echo 09/2017: Mild MR Hx of gastroesophageal reflux (GERD) Nexium OTC PRN Hx of supraventricular tachycardia Dx after 1st back surgery Follows with Dr. Becker/Jayashree Hypertension Surgical History History of lumbar surgery L3-4 decompression/fusion (07/12/17): Grade view 2, MAC#4, ETT 8.0 at [facility]. Per post-op anesthesia progress note 07/12/2017, "After taking patient ti [sic] ICU for his recovery time he went into a regular, narrow complex svt- hr in 140's- Otherwise not symptomatic. Given adenosine 6 mg IV which broke it for a couple minutes but it again returned. Adenosine 12 mg IV given with good pause and result to heart rate 70's. Patient had had a very short selfLimited run in the OR after induction and from talking to him has probably had in the past. Gave 2 doses of esmolol 10 mg IV and spoke with Dr. Friend from medicine who is being consulted and he requested a 12 lead ECG. Patient will be sent to a monitored bed when his recovery is complete." Patient subsequently established and has since been monitored by [facility] cardiology outpatient* Hx of arthroscopy of shoulder Left RCR Hx of bilateral cataract extraction Hx of cardiac catheterization 1978- no stents - no stents Approximately 15 years ago- no stents Hx of colonoscopy Hx of thumb surgery R/L hands Social History Smoking Status: Former smoker Tobacco Type: Cigarettes and E-cigarettes / Vaping Second Hand Exposure: No; Do You Dip or Chew Tobacco: No; Hx Alcohol Use: Yes Alcohol type: beer Hx Substance Use: No Preferred Language: Tunisian Communication Ability: Effective Scouring Machine Tender Required: No Beliefs That Will Affect Care: None Current Living Situation: Spouse Feels Safe at Home: Yes Assistive Devices: None Allergies Allergies Allergy/AdvReac Type Severity Reaction Status Date / Time tetracycline Allergy Intermediate Mood Verified 09/16/23 11:14 swings, rash Home Meds Home Medications Medication Instructions Recorded Confirmed aspirin 81 mg tablet,delayed 81 mg PO DAILY 02/12/24 02/12/24 release metoprolol succinate 25 mg 12.5 mg PO DAILY 02/12/24 02/12/24 tablet,extended release 24 hr olopatadine 0.2 % eye drops 1 drp ophthalmic (eye) DAILY 02/12/24 02/12/24 (Pataday Once Daily Relief) omeprazole 20 mg tablet,delayed 20 mg PO DAILY PRN Heartburn 02/12/24 02/12/24 release potassium chloride 10 mEq 10 meq PO DAILY 02/12/24 02/12/24 tablet,extended release(part/cryst) (Klor-Con M) rosuvastatin 40 mg tablet 40 mg PO DAILY 02/12/24 02/12/24 tamsulosin 0.4 mg capsule 0.4 mg PO DAILY 02/12/24 02/12/24 Results & Data (ED) Vital Signs Vital Signs - 24 hr 02/12/24 03:00 02/12/24 03:10 02/12/24 03:20 Pulse Rate 100 H 94 H 102 H Pulse Rate from SpO2 Sensor 100 H 91 H 101 H Respiratory Rate 17 18 17 Blood Pressure Blood Pressure Mean Pulse Oximetry 97 95 97 Oxygen Delivery Method Oxygen Flow Rate 02/12/24 03:30 02/12/24 03:40 02/12/24 03:50 Pulse Rate 105 H 99 H 94 H Pulse Rate from SpO2 Sensor 104 H 108 H Respiratory Rate 19 22 Blood Pressure Blood Pressure Mean Pulse Oximetry 98 93 90 Oxygen Delivery Method Nasal Cannula Oxygen Flow Rate 2 02/12/24 04:10 02/12/24 04:16 02/12/24 04:16 Pulse Rate 84 Pulse Rate from SpO2 Sensor 82 Respiratory Rate 17 Blood Pressure 131/64 Blood Pressure Mean 81 Pulse Oximetry 90 Oxygen Delivery Method Oxygen Flow Rate 02/12/24 04:20 02/12/24 04:30 02/12/24 04:40 Pulse Rate 77 85 80 Pulse Rate from SpO2 Sensor Respiratory Rate 12 13 18 Blood Pressure Blood Pressure Mean Pulse Oximetry Oxygen Delivery Method Oxygen Flow Rate Laboratory Data Lab Results 02/12/24 Range/Units 02:30 Urine Color Yellow Urine Appearance Clear (Clear) Urine pH 6.0 (4.5-7.5) Ur Specific [place] 1.032 H (1.000-1.030) Urine Protein Trace H (Negative) Urine Glucose (UA) 3+ H (Negative) Urine Ketones Trace H (Negative) Urine Blood Trace H (Negative) Urine Nitrite Negative (Negative) Urine Bilirubin Negative (Negative) Urine Urobilinogen Negative (Negative) Ur Leukocyte Esterase Negative (Negative) Urine WBC (Auto) 0-5 (0-5) /hpf Urine RBC (Auto) 6-10 H (0-2) /hpf U Hyaline Cast (Auto) 0-2 (0-2) /lpf U Epithel Cells (Auto) 0-2 (0-2) /hpf Urine Bacteria (Auto) None Seen (None Seen) Administered Medications Aspirin (Aspirin 81 Mg Ectab) 81 mg PO DAILY [facility] Stop: 03/13/24 08:59 Last Admin: 02/12/24 09:39 Dose: 81 mg Documented By: JASPERK Enoxaparin Sodium (Enoxaparin Inj 40 Mg/0.4 Ml Syr) 40 mg SQ Q24H [facility] Stop: 03/13/24 05:59 Last Admin: 02/12/24 06:27 Dose: 40 mg Documented By: LAMAR Hydromorphone HCl (Hydromorphone Inj 0.5 Mg/0.5 Ml Syr) 0.5 mg IV Q3H PRN PRN Reason: Mod-Sev Pain (Scale 4-10) Stop: 02/26/24 05:36 Last Admin: 02/12/24 23:16 Dose: 0.5 mg Documented By: Admin: 02/12/24 18:43 Dose: 0.5 mg Documented By: JASPERK Metoprolol Succinate (Metoprolol Succ 25mg Ext Rel Tab) 12.5 mg PO DAILY [facility] Stop: 03/13/24 08:59 Last Admin: 02/12/24 09:39 Dose: 12.5 mg Documented By: SHARYN Miscellaneous (*Pataday*Order Awaiting Action) 1 each N/A QS [facility] Stop: 03/13/24 07:59 Last Admin: 02/13/24 00:24 Dose: Not Given Documented By: Admin: 02/12/24 16:39 Dose: Not Given Documented By: Admin: 02/12/24 07:52 Dose: Not Given Documented By: JASPERK Oxycodone HCl (Oxycodone Hcl Ir 5 Mg Tab (Immediate Release)) 2.5 mg PO Q6H PRN PRN Reason: moderate pain Stop: 02/26/24 13:59 Last Admin: 02/12/24 14:15 Dose: 2.5 mg Documented By: TBK Polyethylene Glycol (Polyethylene (Miralax) 17 Gm Pack) 17 gm PO DAILY PRN PRN Reason: Constipation Stop: 03/13/24 05:36 Last Admin: 02/12/24 18:34 Dose: 17 gm Documented By: TBK Potassium Chloride (Potassium Chloride 10 Meq Tabcr) 10 meq PO DAILY [facility] Stop: 03/13/24 08:59 Last Admin: 02/12/24 09:38 Dose: 10 meq Documented By: TBK Rosuvastatin Calcium (Rosuvastatin Calcium 20 Mg Tab) 40 mg PO DAILY [facility] Stop: 03/13/24 08:59 Last Admin: 02/12/24 09:38 Dose: 40 mg Documented By: SHARYN Tamsulosin HCl (Tamsulosin Hcl 0.4 Mg Cap) 0.4 mg PO DAILY [facility] Stop: 03/13/24 08:59 Last Admin: 02/12/24 09:38 Dose: 0.4 mg Documented By: SHARYN Tizanidine HCl (Tizanidine Hcl 4 Mg Tablet) 2 mg PO TID PRN PRN Reason: muscle relaxants Stop: 03/13/24 20:59 Last Admin: 02/12/24 19:53 Dose: 2 mg Documented By: LAMAR Discontinued Medications Hydromorphone HCl (Hydromorphone Inj 1 Mg/Ml Syringe) 1 mg IV NOW STA Stop: 02/12/24 03:23 Last Admin: 02/12/24 03:38 Dose: 1 mg Documented By: SHAYAN Ketorolac Tromethamine (Ketorolac 30 Mg/Ml Vial) 30 mg IV NOW ONE Stop: 02/12/24 03:32 Last Admin: 02/12/24 03:38 Dose: 30 mg Documented By: SHAYAN Lorazepam (Lorazepam 1 Mg/1 Ml Syr Ed Inj Use) 1 mg IV ONE STA Stop: 02/12/24 03:33 Last Admin: 02/12/24 03:38 Dose: 1 mg Documented By: SHAYAN Miscellaneous (Patient's Height &/Or Weight Needed) 1 each N/A Q30M [facility] Stop: 02/12/24 08:16 Last Admin: 02/12/24 07:52 Dose: Not Given Documented By: SHARYN Ondansetron HCl (Ondansetron Inj 2 Mg/Ml 2 Ml Vial) 4 mg IV NOW STA Stop: 02/12/24 03:23 Last Admin: 02/12/24 03:33 Dose: 4 mg Documented By: Discharge Plan Visit Data Chief Complaint: Back Injury/Pain Stated Complaint: BACK PAIN ED Provider: Nata Morgan Discharge Problem: Intractable low back pain Patient Disposition: Admitted As Inpatient Discharge Instructions Interventions: ED Discharge Assessment Last Done: 02/12/24 05:36
[2024-02-12] MEDS: ENOXAPARIN INJ 40 MG/0.4 ML SYR SQ SCH (06:27)
[2024-02-12] MEDS: Patient's HEIGHT &/or WEIGHT Needed SCH (07:52)
[2024-02-12] MEDS: ROSUVASTATIN CALCIUM 20 MG TAB PO SCH (09:38)
[2024-02-12] MEDS: TAMSULOSIN HCL 0.4 MG CAP PO SCH (09:38)
[2024-02-12] MEDS: POTASSIUM CHLORIDE 10 MEQ TABCR PO SCH (09:38)
[2024-02-12] MEDS: METOPROLOL SUCC 25MG EXT REL TAB PO SCH (09:39)
[2024-02-12] MEDS: ASPIRIN 81 MG ECTAB PO SCH (09:39)
[2024-02-12] MEDS: oxyCODONE HCL IR 5 MG TAB (IMMEDIATE RELEASE) PO PRN (14:15)
--- NOTE | 2024-02-12 15:11 | Orthopedic Consultation ---
Date of Service February 12, 2024 Assessment & Plan (1) Back pain: (2) H/O Spinal surgery: Plan Patient is being consulted today for intractable right low back pain. He was also found to have some right lower extremity weakness on physical examination. This may be due to the right neuroforaminal narrowing at L4-L5 as seen on the MRI, or may also be coming from the unaffected areas at the level above and below the fusion. His pain also may be muscular in nature as well. He does remain neurologically stable. His MRI is reassuring for no hardware complication. His fusion and hardware seems intact without complication. Myself as well as Dr. Ring explained this in much detail to the patient and family. Would recommend adding a muscle relaxer if indicated and safe for the patient into his medication list. This may help with the muscle spasm he is experiencing in his right thigh. Would also recommend a pain management consult for evaluation for an injection due to his pain. We did explain to the patient that at this time, no urgent surgical intervention is indicated and that pain control is going to the main goal of his hospital stay. We have also placed a physical therapy/Occupational Therapy referral to assist with the patient's ambulation. He may need to ambulate with a walker until he is better on his feet. Lastly, would recommend that he follows up with his primary surgical service for evaluation of the pain he is experiencing. Please contact with any questions or concerns. Patient was a seen and examined, lengthy discussion was performed with the patient and his daughter who lives in [place] but was staying to visit while the patient is in the hospital. I related that I think the right leg weakness is secondary to the disc protrusion foraminal and extraforaminal on the right at L4-5. This was review of the MRI images which I made, this is my separate interpretation. He has a prior fusion at L2-3 and L3-4 and I think this is intact, no significant findings at L1-2. 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 I explained to them that I would certainly anticipate some pain complaints and/or potentially numbness but the weakness in the right leg does pose a different aspect to the situation. At this time I recommended we make measures to control the pain symptoms, but also do mobilization with physical therapy. Pain management to be consulted, and observation to see if the strength has any improvement over the next few days. History of Present Illness Reason for Consultation: right low back pain Requesting Physician: . Attending Physician: Sidney Souza MD Jayro is a 78-year-old male who is being consulted today for right low back pain. To note, he is a patient of Dr. Ortega and did have a two-level lumbar fusion performed by him in July 2023. Patient states that his postop recovery has been uneventful, however since January 2024, he has been noticing persistent right low back pain that has been increasing in intensity. He denies any recent injuries, falls, etc. He did report to the emergency department on 02/11/2024 due to persistent right low back pain that he has been having and worsening over the past 5 to 6 days. He did have an MRI of his lumbar spine at this visit. He was not found to have any neurological deficits at this visit. He was discharged home from this visit and instructed to follow-up with his original orthopedic surgeon. He was discharged on prednisone, naproxen and Percocet. He then came back to the emergency department later that evening as his pain worsen despite the medications he was sent home on. He was then admitted with the hospitalist service for pain management and ambulatory dysfunction. At our visit today, the patient does have his daughter with him. He states that his main concern is the pain in his right lower back. He states that it makes it quite difficult for him to walk. He also feels weak in his right leg. He states that this has all been gradually getting worse over the past month and specifically the past week. He denies any recent falls, trauma or eliciting event. He does state that he saw a PA from his original surgeon's office in January who stated that he had facet arthropathy and recommended an injection. He wanted to hold off on the injection at this time. As you will see in the physical exam below, the patient did attempt to ambulate today. He is having some difficulty using his right lower extremity. He does state that what ever pain medications they have been giving him since last evening have been helping but are now beginning to wear off. He denies any numbness in the bilateral lower extremities. He does state that he has a "twinge" in the right thigh. No burning sensation or loss of sensation noted by the patient. He denies any acute neurological deficits, bowel or bladder disturbances or constitutional symptoms. Allergies Allergy/AdvReac Type Severity Reaction Status Date / Time tetracycline Allergy Intermediate Mood Verified 09/16/23 11:14 swings, rash Home Medications Medication Instructions Recorded Confirmed Type aspirin 81 mg tablet,delayed 81 mg PO DAILY 02/12/24 02/12/24 History release metoprolol succinate 25 mg 12.5 mg PO DAILY 02/12/24 02/12/24 History tablet,extended release 24 hr olopatadine 0.2 % eye drops 1 drp ophthalmic (eye) DAILY 02/12/24 02/12/24 History (Pataday Once Daily Relief) omeprazole 20 mg tablet,delayed 20 mg PO DAILY PRN Heartburn 02/12/24 02/12/24 History release potassium chloride 10 mEq 10 meq PO DAILY 02/12/24 02/12/24 History tablet,extended release(part/cryst) (Klor-Con M) rosuvastatin 40 mg tablet 40 mg PO DAILY 02/12/24 02/12/24 History tamsulosin 0.4 mg capsule 0.4 mg PO DAILY 02/12/24 02/12/24 History Past Med/Surg History Medical History (Updated 02/13/24 @ 15:13 by Robert Batres PA-C) Walker as ambulation aid Ambulatory dysfunction Weakness of right lower extremity Muscle spasm of right lower extremity Hx of gastroesophageal reflux (GERD) Nexium OTC PRN BPH (benign prostatic hyperplasia) Hx of supraventricular tachycardia Dx after 1st back surgery Follows with Dr. Becker/[facility] Cardiac murmur Echo 09/2017: Mild MR Hypertension Surgical History (Updated 02/13/24 @ 15:13 by Robert Batres PA-C) Hx of cardiac catheterization 1978- no stents - no stents Approximately 15 years ago- no stents Hx of arthroscopy of shoulder Left RCR Hx of thumb surgery R/L hands History of lumbar surgery L3-4 decompression/fusion (07/12/17): Grade view 2, MAC#4, ETT 8.0 at [facility]. Per post-op anesthesia progress note 07/12/2017, "After taking patient ti [sic] ICU for his recovery time he went into a regular, narrow complex svt- hr in 140's- Otherwise not symptomatic. Given adenosine 6 mg IV which broke it for a couple minutes but it again returned. Adenosine 12 mg IV given with good pause and result to heart rate 70's. Patient had had a very short selfLimited run in the OR after induction and from talking to him has probably had in the past. Gave 2 doses of esmolol 10 mg IV and spoke with Dr. Friend from medicine who is being consulted and he requested a 12 lead ECG. Patient will be sent to a monitored bed when his recovery is complete." Patient subsequently established and has since been monitored by [facility] cardiology outpatient* Hx of colonoscopy Hx of bilateral cataract extraction Social History Smoking Status: Former smoker Tobacco Type: Cigarettes and E-cigarettes / Vaping Second Hand Exposure: No; Do You Dip or Chew Tobacco: No; Hx Alcohol Use: Yes Alcohol type: beer Hx Substance Use: No Preferred Language: Thai Communication Ability: Effective Rheumatologist Required: No Beliefs That Will Affect Care: None Current Living Situation: Spouse Feels Safe at Home: Yes Assistive Devices: Walker Review of Systems All systems reviewed & are unremarkable except as noted in HPI & below. Physical Exam Patient is resting comfortably at this time in his hospital bed. He is able to get in and out of his bed without assistance. He did attempt an ambulatory trial independently and needed to hold onto objects in the room. He is leaning over and also is having difficulty putting weight on the right lower extremity. Patient states is due to pain in his right lower back as well as weakness he is feeling in his right leg. He does have absent patella reflex right lower extremity compared to his left lower extremity which is present. His sensation is intact right lower extremity. Surgical wound: Incision intact. It is clean and dry. No drainage, abnormal tenderness, erythema. Motor exam lower ex tremities: Bilateral hip flexors 5 out of 5, left knee extensor 5 out of 5, right knee extensor 3-4 out of 5, bilateral ankle dorsiflexors 5 out of 5, bilateral plantar flexors 5 out of 5, EHL/EDL, FHL, FDL are bilaterally 5 out of 5. Constitutional WD/WN, vitals as above Results & Data Results & Data Laboratory Results . Abnormal lab results 02/12/24 Range/Units 02:30 Ur Specific [place] 1.032 H (1.000-1.030) Urine Protein Trace H (Negative) Urine Glucose (UA) 3+ H (Negative) Urine Ketones Trace H (Negative) Urine Blood Trace H (Negative) Urine RBC (Auto) 6-10 H (0-2) /hpf Diagnostic Findings Did review the MRI of the lumbar spine on 02/11/2024. There is evidence of a posterior decompression and fusion from levels L2-L4. No hardware complication noted. There does seem to be degenerative changes at the level above and the level below the fusion. There is also right neuroforaminal narrowing due to a disc herniation seen at the L4-L5 level. No significant central canal stenosis. PG Care Time/CCT Total # of Minutes Spent Total Time Spent with Patient: Total time spent is greater than 50% in coordination of care (as documented) at patient's floor/unit and/or counseling patient: Coding Level of Care Code 55634 IN/OBS CONSULT LVL 3,45M Diagnoses Back pain M54.50 Back pain laterality: right Back pain location: low back pain Chronicity: acute Sciatica presence: unspecified whether sciatica present H/O Spinal surgery Z98.890 (1) Back pain Back pain laterality: right Back pain location: low back pain Chronicity: acute Sciatica presence: unspecified whether sciatica present Qualified Code(s): M54.50 - Low back pain, unspecified
--- NOTE | 2024-02-12 16:06 | Communication Note ---
Date of Service: February 12, 2024 Patient is admitted with intractable right lower back pain and right lower extremity weakness. Evaluated by orthospine; recommend pain management evaluation. Continue muscle relaxant, pain medication. PT OT eval On physical examination; Constitutional: Alert oriented x 3; not in distress Respiratory: normal respiratory effort, lungs clear to auscultation, no wheeze, rales, rhonchi. Normal insp/exp effort, no accessory muscle use Cardiovascular: RRR, no murmur, no edema Vessels: no JVD or carotid bruit Chest: normal inspection of chest Abdomen: normal bowel sounds, soft, nontender, no hepatosplenomegaly Musculoskeletal: Strength 4 out of 5 on right quadriceps. Skin: no rashes, warm and dry normal turgor Neurologic: PERRL, EOMI, accommodation nl, no face palsy, no dysarthria CN's II- XI intact bilaterally and moves all extremities Psychiatric: A+Ox3, euthymic affect Please note the above document was generated using voice recognition software. It may contain grammatical, syntax or spelling errors. Any formal questions or concerns about the content, text or information contained within the body of this dictation should be directly addressed to the provider for clarification
[2024-02-12] MEDS: POLYETHYLENE (MIRALAX) 17 GM PACK PO PRN (18:34)
[2024-02-12] MEDS: HYDROmorphone INJ 0.5 MG/0.5 ML SYR IV PRN (18:43)
[2024-02-12] MEDS: tiZANidine HCL 4 MG TABLET PO PRN (19:53)
[2024-02-13 06:46] LABS: Basophils # (auto) 0.03 K/uL (0.00-0.20); Basophils % (auto) 0.4 %; Eosinophils # (auto) 0.06 K/uL (0.00-0.50); Eosinophils % (auto) 0.8 %; Hematocrit (blood only) 40.6 % (42.0-52.0); Hemoglobin 13.6 g/dl (14.0-18.0); Immature Granulocytes # (auto) 0.05 K/uL (0.01-0.20); Immature Granulocytes % (auto) 0.7 %; Lymphocytes # (auto) 1.79 K/uL (1.20-3.40); Lymphocytes % (auto) 23.4 %; Mean Corpuscular Hemoglobin 30.5 pg (25.0-34.0); Mean Corpuscular Hgb Conc 33.5 g/dL (32.0-36.0); Mean Platelet Volume 10.2 fL (9.4-12.4); Monocytes # (auto) 0.61 K/uL (0.11-0.59); Neutrophils % (auto) 66.7 %; Platelet Count 176 K/uL (130-400); RDW Coefficient of Variation 13.8 % (11.5-14.5); RDW Standard Deviation 45.4 fL (36.4-46.3); Red Blood Count 4.46 M/uL (4.70-6.10); White Blood Count 7.64 K/ul (4.8-10.8)
[2024-02-13 07:02] LABS: BUN Creatinine Ratio 17.4 (10-20); Calcium 9.2 mg/dl (8.6-10.3); Creatinine Clr Calc Pharmacy 57.7 ml/min; Est GFR (Non-African American) 65.6 ml/min; Potassium 4.4 mmol/L (3.5-5.1)
[2024-02-13 07:28] LABS: Estimated Average Glucose 131 mg/dl; Hemoglobin A1C 6.2 % (4.5-5.6)
--- NOTE | 2024-02-13 08:18 | Orthopedic Progress Note ---
Date of Service February 13, 2024 Subjective Patient notes that he still has some continued right-sided low back pain, this is about the same as it was before but is responding to IV medication. He still has a right leg weakness, he does have a walker now in the room but still needs this for any ambulation with weakness in the right leg. Exam reveals the patient is still have some weakness on right knee extension only, hip flexion ankle plantar dorsiflexion is intact. Impression: Right L4-5 foraminal disc protrusion with right leg radiculopathy and weakness as noted. Plan: Today at this time would have the patient continue to work with therapy, and when his symptoms are controlled with appropriate medications, and he is cleared therapy for ambulation using a walker he can be discharged, with follow- up with Dr. Ortega. I expressed that he may need operative intervention on this but certainly I would recommend giving this some additional time to see if it will improve, he was in agreement with this plan. Review of Systems All systems reviewed & are unremarkable except as noted in HPI & below. Physical Exam . Results & Data Results & Data Laboratory Results . Diagnostic Findings . PG Care Time/CCT Total # of Minutes Spent Total Time Spent with Patient: Total time spent is greater than 50% in coordination of care (as documented) at patient's floor/unit and/or counseling patient: Coding Level of Care Code 97682 SUB INP/OBS CARE 10/30MIN
--- NOTE | 2024-02-13 14:56 | Pain Management Consultation ---
Date of Consultation February 13, 2024 Assessment & Plan (1) Intractable low back pain: (2) H/O Spinal surgery: (3) Muscle spasm of right lower extremity: (4) Weakness of right lower extremity: (5) Ambulatory dysfunction: (6) Walker as ambulation aid: Plan I discussed with the patient and his family our role in his care and that we were consulted by [facility] orthopedics for the possibility that he may be recommended to undergo procedural intervention. They understand he has seemingly developed a broad-based posterior disc bulge at L4-5 that is causing mild to moderate central canal narrowing. The disc bulge is abutting the transiting right L5 nerve root and causing moderate to severe right neuroforaminal narrowing due to the disc bulge and facet hypertrophy. Additionally, the disc bulge seems to also be abutting the exiting right L4 nerve root. 1. Were the patient to not have this significance of acute symptoms, he could be a candidate for a lumbar RAY, but at this time, it is felt that he may need further surgical intervention, and so procedural intervention is not recommended or indicated at this time. With that said, we will wait and see what the outcome of Dr. Ortega's visit with the patient is. 2. Recommend gabapentin 300 mg, with titration to TID. 3. Recommend IV methylprednisolone vs. IV Toradol. 4. Consider increasing tizanidine to 4 mg dose TID PRN. 5. Continue IV hydromorphone and oxycodone as ordered. 6. Give consideration for switching acetaminophen to scheduled. 7. May consider MRI of the lumbar spine with and without contrast using [facility] protocol. Pain management service will follow peripherally. History of Present Illness Attending Physician: Sidney Souza MD History of Present Illness Patient is a 78-year-old male seen today accompanied by his and daughter, who presented to the [facility] ED on 02/11/2024, and then again the following day, which was yesterday, 02/12/2024. Patient has been experiencing severe right-sided lumbosacral region back pain, as well as pain and spasms in his right anterior thigh. He notes that these are new symptoms for him since his pain became severe a couple of days ago. He states that he was noticing some twinging and more mild low back pain to that right lumbosacral region for a number of months now, but it was nothing anywhere near as severe as currently. Of note, the patient did undergo a lumbar decompression and fusion with posterior instrumentation at L2-L4 by Dr. Ortega on 08/01/2023. Dr. Ortega has been out of town and [place], so has been unable to see the patient. He has been followed by Dr. Ring over the past couple of days. When the patient first came to the ED, he was eventually discharged on Percocet, naproxen and prednisone, but then he suddenly developed significant and severe worsening of his right-sided low back pain to the point he was unable to sit still. He was unable to have any relief of his intractable pain and discomfort, so he returned to the ED and was medicated with IV Dilaudid, IV Zofran, IV Toradol, and IV Ativan. The patient was experiencing muscle spasms/cramps in his right thigh while he was in the ED and trying to hold him self up on a chair. Today, the patient is localizing his pain to the right lumbosacral region lateral to his surgical incision. However, he states that he is nontender to this area and he has not been experiencing any spasms in that particular location. Rather, he has pain and spasms in the front of his right thigh. He has been developing some profound weakness to right knee extension and is unable to ambulate on his own without assistance of a walker. Even when he does use the walker, he has to drag his right leg and sort of stepped on his forefoot. He is having ambulatory dysfunction secondary to his pain and neurologic deficits. Patient denies any central or left-sided low back pain. Patient denies any left lower extremity involvement. Patient denies bowel/bladder incontinence and saddle anesthesia. He has been receiving IV Dilaudid 0.5 mg every 3 hours, which he does say helps control the pain quite a bit and he can be relatively comfortable if he is at rest, but the medication only lasts for a couple of hours, then his pain returns. He is also taking oxycodone 2.5 mg every 6 hours as needed, and tizanidine 3 times daily as needed. Patient's states that they received a call today from Dr. Ortega's office and that the patient is not to be discharged home, as Dr. Ortega will be in to see the patient when he returns next Friday. Family inquires as to if there is any further pain control measures that can be done until he can be further evaluated by Dr. Ortega next week. Case discussed with Dr. Padmini Taylor. Allergies Allergy/AdvReac Type Severity Reaction Status Date / Time tetracycline Allergy Intermediate Mood Verified 09/16/23 11:14 swings, rash Home Medications Medication Instructions Recorded Confirmed Type aspirin 81 mg tablet,delayed 81 mg PO DAILY 02/12/24 02/12/24 History release metoprolol succinate 25 mg 12.5 mg PO DAILY 02/12/24 02/12/24 History tablet,extended release 24 hr olopatadine 0.2 % eye drops 1 drp ophthalmic (eye) DAILY 02/12/24 02/12/24 History (Pataday Once Daily Relief) omeprazole 20 mg tablet,delayed 20 mg PO DAILY PRN Heartburn 02/12/24 02/12/24 History release potassium chloride 10 mEq 10 meq PO DAILY 02/12/24 02/12/24 History tablet,extended release(part/cryst) (Klor-Con M) rosuvastatin 40 mg tablet 40 mg PO DAILY 02/12/24 02/12/24 History tamsulosin 0.4 mg capsule 0.4 mg PO DAILY 02/12/24 02/12/24 History Pain History Pain Location Full Body Front + Back: 2 1. 2. Patient History Medical History (Updated 02/13/24 @ 15:13 by Robert Batres PA-C) Walker as ambulation aid Ambulatory dysfunction Weakness of right lower extremity Muscle spasm of right lower extremity Hx of gastroesophageal reflux (GERD) Nexium OTC PRN BPH (benign prostatic hyperplasia) Hx of supraventricular tachycardia Dx after 1st back surgery Follows with Dr. Becker/[facility] Cardiac murmur Echo 09/2017: Mild MR Hypertension Surgical History (Updated 02/13/24 @ 15:13 by Robert Batres PA-C) Hx of cardiac catheterization 1978- no stents - no stents Approximately 15 years ago- no stents Hx of arthroscopy of shoulder Left RCR Hx of thumb surgery R/L hands History of lumbar surgery L3-4 decompression/fusion (07/12/17): Grade view 2, MAC#4, ETT 8.0 at [facility]. Per post-op anesthesia progress note 07/12/2017, "After taking patient ti [sic] ICU for his recovery time he went into a regular, narrow complex svt- hr in 140's- Otherwise not symptomatic. Given adenosine 6 mg IV which broke it for a couple minutes but it again returned. Adenosine 12 mg IV given with good pause and result to heart rate 70's. Patient had had a very short selfLimited run in the OR after induction and from talking to him has probably had in the past. Gave 2 doses of esmolol 10 mg IV and spoke with Dr. Friend from medicine who is being consulted and he requested a 12 lead ECG. Patient will be sent to a monitored bed when his recovery is complete." Patient subsequently established and has since been monitored by [facility] cardiology outpatient* Hx of colonoscopy Hx of bilateral cataract extraction Social History Smoking Status: Former smoker Tobacco Type: Cigarettes and E-cigarettes / Vaping Second Hand Exposure: No; Do You Dip or Chew Tobacco: No; Hx Alcohol Use: Yes Alcohol type: beer Hx Substance Use: No Preferred Language: Faroese Communication Ability: Effective Lead Relay Tester Required: No Beliefs That Will Affect Care: None Current Living Situation: Spouse Feels Safe at Home: Yes Assistive Devices: Walker Physical Exam 2 Physical Exam: GENERAL: Speech and cognition is intact. Mood and affect is appropriate. Does not appear in acute distress. HEAD: Normocephalic; atraumatic. NECK: Trachea is midline. CHEST: Regular chest respiration and excursion. EXTREMITIES: Full ROM. No TTP. Distal sensation and pulses intact bilaterally. BACK: Diminished ROM secondary to pain. No midline, SI joint, or facet joint tenderness. No lumbosacral tenderness. No paraspinal, quadratus lumborum, piriformis, or gluteal tenderness or spasm.Inspection/palpation demonstrates some loss of normal lumbar lordotic curvature. Midline lumbar cicatrix noted, which appears well-healed and without evidence of erythema, drainage, or infection. NEURO: CN II-XII grossly intact with no focal deficits noted. Unable to ambulate without a walker; drags right lower leg due to knee extension weakness. Awake, alert, and oriented x 3. Distal sensation of lower legs intact. Patellar Reflex R absentL 1+ Achilles Reflex R traceL trace SKIN: No lesions, erythema, or rashes noted. LOWER EXTREMITIES: R Hip flexion 5/5; hip extension 4+/5; knee extension 1+ to 2-/5; knee flexion 5/5; ankle dorsiflexion 4/5 (EDC); ankle plantar flexion 5/5; EHL 5/5 L Hip flexion 5/5; hip extension 5/5; knee extension 5/5; knee flexion 5/5; ankle dorsiflexion 5/5; ankle plantar flexion 5/5; EHL 5/5 Results (Pain Clinic) Diagnostic Review MRI Findings: LUMBAR SPINE MRI HISTORY: R lower back pain, hx lumbar fusion TECHNIQUE: Multiplanar multisequence MRI of the lumbar spine was performed without the use of contrast. COMPARISON: Lumbar spine MRI 07/10/2017. FINDINGS: For the purpose of the report the L5-S1 disc space will be located on axial image 27 of 30. Straightening of the lumbar spine. Posterior decompression fusion from L2 through L4 with pedicle screws and rods. Mild disc space narrowing and disc desiccation at L4-5 and L5-S1. The conus terminates at the L1-L2 disc space level. Mild disc space narrowing at T11-T12. The visualized sacrum is intact. Mild soft tissue edema at the laminectomy sites favors postoperative change. Motion artifact results in suboptimal evaluation. Paravertebral soft tissues appear unremarkable. L1-L2: No significant central canal or neural foraminal narrowing. L2-L3: No significant central canal narrowing due to the posterior decompression. No significant neural foraminal narrowing. L3-L4: No significant central canal narrowing due to the posterior decompression. No significant neural foraminal narrowing. L4-L5: Broad-based posterior disc bulge with ligamentum and facet hypertrophy resulting in opah-fi-aukqczau central canal and mild to moderate left-sided neural foraminal narrowing. The disc bulge abuts the transiting right L5 nerve root. There is moderate to severe right neural foraminal narrowing due to the asymmetric disc bulge and facet hypertrophy. This disc bulge also abuts the exiting right L4 nerve root. L5-S1: Small broad-based posterior disc bulge without significant central canal or right-sided neural foraminal narrowing. There is mild to moderate left-sided neural foraminal narrowing. IMPRESSION: 1. Posterior decompression and fusion from L2 through L4. 2. No fracture or subluxation within the lumbar spine. 3. Multilevel degenerative changes as described above most pronounced at the L4- 5 level. ACT 112: Negative or not required by law. Electronically signed by: Genaro Tavares M.D. 02/11/2024 1:12 PM Dictated: 02/11/24 1304 Transcribed: 02/11/24 1304 Radiology Findings: FL lumbar spine 2-3V CLINICAL HISTORY: L2-L3 DECOMPRESSION AND FUSION L3-L4 HW REMOVAL TECHNIQUE: 2 views were obtained with the C-arm in the OR with the above procedure. Total fluoroscopy time was 7.7 seconds. Radiation dose was 4.15 mGy. Comparison: Comparison is made to lumbar spine radiographs 07/12/2017 FINDINGS/IMPRESSION: Intraoperative images were obtained of L2-L4 decompression and fusion and hardware replacement. Please correlate with intraoperative fluoroscopy and operative report. ACT 112: Negative or not required by law. Electronically signed by: Abdelrahman Araujo M.D. 08/01/2023 10:31 AM Dictated: 08/01/23 1030 Transcribed: 08/01/23 1030
--- NOTE | 2024-02-13 15:18 | Hospitalist Progress Note ---
Date of Service February 13, 2024 Assessment & Plan (1) Back pain: Plan: 78-year-old male with past medica history significant for hyperlipidemia, prediabetes, paroxysmal supraventricular tachycardia, hypertension, GERD, allergic conjunctivitis of both eyes presents with severe back pain.Patient states he is having pain since January but got worse since last 1 day. He also reports having some difficulty ambulation. No bowel or bladder bladder incontinence. Lumbar radiculopathy Right leg weakness Past medical history of lumbar stenosis with neurogenic claudication with herniated disks at L2-L3 status post surgery in July 2023 Presents with back pain and right thigh weakness MRI on presentation shows posterior decompression and fusion from L2-L4 No fracture or subluxation sensation within the lumbar spine Multilevel degenerative changes most pronounced at L4-L5 Evaluated by orthospine; the weakness in liar through her extremities thought secondary to right neuroforaminal narrowing at L4-L5 as seen in the MRI. Consulted pain management due to intractable back pain Continue PT OT Prediabetes HbA1c of 6.2% diet-controlled Paroxysmal supraventricular tachycardia On metoprolol succinate Hypertension On metoprolol succinate Hyperlipidemia On statin DVT prophylaxis Lovenox Disposition Medical floor Full code Please note the above document was generated using voice recognition software. It may contain grammatical, syntax or spelling errors. Any formal questions or concerns about the content, text or information contained within the body of this dictation should be directly addressed to the provider for clarification Admission and Anticipated Discharge Date Admission Date: February 12, 2024 Subjective Patient seen and examined at bedside. He reports the pain is well-controlled on current regimen However he continues to have weakness in his right extensor No significant events Review of Systems Review of Systems: All systems reviewed & are unremarkable except as noted in Subjective Physical Exam Physical Exam: Constitutional: Alert oriented x 3; not in distress Respiratory: normal respiratory effort, lungs clear to auscultation, no wheeze, rales, rhonchi. Normal insp/exp effort, no accessory muscle use Cardiovascular: RRR, no murmur, no edema Vessels: no JVD or carotid bruit Chest: normal inspection of chest Abdomen: normal bowel sounds, soft, nontender, no hepatosplenomegaly Musculoskeletal: Strength 4 out of 5 on right quadriceps.Strength intact otherwise Skin: no rashes, warm and dry normal turgor Neurologic: PERRL, EOMI, accommodation nl, no face palsy, no dysarthria CN's II- XI intact bilaterally and moves all extremities Psychiatric: A+Ox3, euthymic affect Results & Data Results & Data Vital Signs (Past 12 Hours) Vital Signs Temp Pulse Resp BP Pulse Ox O2 Del Method 02/13/24 15:02 36.6 C 64 16 161/83 H 97 Room Air 02/13/24 07:39 36.7 C 60 18 158/96 H 100 Room Air (1) Back pain Back pain laterality: right Back pain location: low back pain Chronicity: acute Sciatica presence: unspecified whether sciatica present Qualified Code(s): M54.50 - Low back pain, unspecified
--- NOTE | 2024-02-14 12:52 | Orthopedic Progress Note ---
Date of Service February 14, 2024 Subjective Patient seen and examined, he reports some slight improvement in the pain that he was having in his right lumbosacral spine and into the leg anterior laterally. He reports at the time I evaluated him around 10 AM, he had not had any pain medicine since 5 AM. He still notes weakness and he will get sudden jabs of pain as he describes it into his right leg. Exam reveals the patient main area of motor weakness to be the right knee extension the other motor groups are 5/5 to manual testing in the right leg. Impression: Symptoms which I think are related to a foraminal/extraforaminal disc herniation at L4-5 below two-level fusion. Plan: Today I spent approximately 30 minutes talking with the patient and then also his daughter on the phone going over the findings and my thoughts on this. I related that he had some limited improvement in the pain but he still con tinues the weakness, and certainly operative intervention might need to be performed relative to the weakness, but I think it would still be reasonable to provide some observation with mobilization and pain control to see if the motor improves. I related that though there is a disc protrusion and contact with the exiting L4 nerve root, I still think there is the option that it could improve. I went on to explain that a discectomy in that region may involve having to remove a portion of the facet, this could cause instability and then require a fusion. At this point they would like like to wait till Dr. Ortega returns for his opinion, certainly I think that is appropriate, they are in agreement with this plan. Review of Systems All systems reviewed & are unremarkable except as noted in HPI & below. Physical Exam . Results & Data Results & Data Laboratory Results . Diagnostic Findings . PG Care Time/CCT Total # of Minutes Spent Total Time Spent with Patient: Total time spent is greater than 50% in coordination of care (as documented) at patient's floor/unit and/or counseling patient: Coding Level of Care Code 22257 SUB INP/OBS CARE 2/35MIN
--- NOTE | 2024-02-14 13:44 | Hospitalist Progress Note ---
Date of Service February 14, 2024 Assessment & Plan (1) Back pain: Plan: 78-year-old male with past medica history significant for hyperlipidemia, prediabetes, paroxysmal supraventricular tachycardia, hypertension, GERD, allergic conjunctivitis of both eyes presents with severe back pain.Patient states he is having pain since January but got worse since last 1 day. He also reports having some difficulty ambulation. No bowel or bladder bladder incontinence. Lumbar radiculopathy Right leg weakness Past medical history of lumbar stenosis with neurogenic claudication with herniated disks at L2-L3 status post surgery in July 2023 Presents with back pain and right thigh weakness MRI on presentation shows posterior decompression and fusion from L2-L4 No fracture or subluxation sensation within the lumbar spine Multilevel degenerative changes most pronounced at L4-L5 Evaluated by orthospine; the weakness in liar through her extremities thought secondary to right neuroforaminal narrowing at L4-L5 as seen in the MRI. Continue pain control Patient to be evaluated by Dr. Ortega next week for possible intervention Continue PT OT Prediabetes HbA1c of 6.2% diet-controlled Paroxysmal supraventricular tachycardia On metoprolol succinate Hypertension On metoprolol succinate Hyperlipidemia On statin DVT prophylaxis Lovenox [facility] Medical floor Full code Please note the above document was generated using voice recognition software. It may contain grammatical, syntax or spelling errors. Any formal questions or concerns about the content, text or information contained within the body of this dictation should be directly addressed to the provider for clarification Admission and Anticipated Discharge Date Admission Date: February 12, 2024 Subjective No improvement in the weakness of right leg Reports that pain is well-controlled on current medication No significant events overnight Review of Systems Review of Systems: All systems reviewed & are unremarkable except as noted in Subjective Physical Exam Physical Exam: Constitutional: Alert oriented x 3; not in distress Respiratory: normal respiratory effort, lungs clear to auscultation, no wheeze, rales, rhonchi. Normal insp/exp effort, no accessory muscle use Cardiovascular: RRR, no murmur, no edema Vessels: no JVD or carotid bruit Chest: normal inspection of chest Abdomen: normal bowel sounds, soft, nontender, no hepatosplenomegaly Musculoskeletal: Strength 4 out of 5 on right quadriceps.Strength intact otherwise Skin: no rashes, warm and dry normal turgor Neurologic: PERRL, EOMI, accommodation nl, no face palsy, no dysarthria CN's II- XI intact bilaterally and moves all extremities Psychiatric: A+Ox3, euthymic affect Results & Data Results & Data Vital Signs (Past 12 Hours) Vital Signs Temp Pulse Resp BP Pulse Ox O2 Del Method 02/14/24 07:16 36.7 C 63 16 126/68 99 Room Air (1) Back pain Back pain laterality: right Back pain location: low back pain Chronicity: acute Sciatica presence: unspecified whether sciatica present Qualified Code(s): M54.50 - Low back pain, unspecified
--- NOTE | 2024-02-15 10:40 | Orthopedic Progress Note ---
Date of Service February 15, 2024 Subjective Patient reports that previous evening he had some increased pain but he is doing better this morning. Exam reveals him to be able to provide some extension of the right knee, improved versus yesterday but still not close to full extension. Impression: L4-5 disc protrusion with right-sided weakness as noted. Plan: Today at this time I talk with the patient, I related once again that if he shows some continued improvement this could be monitored, operative intervention was discussed previously, patient expressed an interest in trying to avoid operative intervention, but also the fact that his previous surgeries with Dr. Ortega as he would like to continue with the same physician but would also go along with what ever recommendations were appropriate. At this time as he had some slight improvement in terms of strength, I think it be reasonable to continue to monitor as Dr. Ortega be returning in 2 days, further discussion and decisions can be made at that time as I do not think this is an urgent situation and him and his daughter are in agreement with this plan. Review of Systems All systems reviewed & are unremarkable except as noted in HPI & below. Physical Exam . Results & Data Results & Data Laboratory Results . Diagnostic Findings . PG Care Time/CCT Total # of Minutes Spent Total Time Spent with Patient: Total time spent is greater than 50% in coordination of care (as documented) at patient's floor/unit and/or counseling patient: Coding Level of Care Code 00122 SUB INP/OBS CARE 125MIN
--- NOTE | 2024-02-15 12:03 | Hospitalist Progress Note ---
Date of Service February 15, 2024 Assessment & Plan (1) Back pain: Plan: 78-year-old male with past medica history significant for hyperlipidemia, prediabetes, paroxysmal supraventricular tachycardia, hypertension, GERD, allergic conjunctivitis of both eyes presents with severe back pain.Patient states he is having pain since January but got worse since last 1 day. He also reports having some difficulty ambulation. No bowel or bladder bladder incontinence. Lumbar radiculopathy Right leg weakness Past medical history of lumbar stenosis with neurogenic claudication with herniated disks at L2-L3 status post surgery in July 2023 Presents with back pain and right thigh weakness MRI on presentation shows posterior decompression and fusion from L2-L4 No fracture or subluxation sensation within the lumbar spine Multilevel degenerative changes most pronounced at L4-L5 Evaluated by orthospine; the weakness of the extremities thought secondary to right neuroforaminal narrowing at L4-L5 as seen in the MRI. Continue pain control Patient reports that family got in touch with orthopedic office and was recommended to stay in the hospital till seen by Dr. Ortega Continue PT OT Prediabetes HbA1c of 6.2% diet-controlled Paroxysmal supraventricular tachycardia On metoprolol succinate Hypertension On metoprolol succinate Hyperlipidemia On statin DVT prophylaxis Lovenox Disposition Medical floor Full code Please note the above document was generated using voice recognition software. It may contain grammatical, syntax or spelling errors. Any formal questions or concerns about the content, text or information contained within the body of this dictation should be directly addressed to the provider for clarification Admission and Anticipated Discharge Date Admission Date: February 12, 2024 Subjective No significant changes overnight. Still has weakness on right thigh Review of Systems Review of Systems: All systems reviewed & are unremarkable except as noted in Subjective Physical Exam Physical Exam: Constitutional: Alert oriented x 3; not in distress Respiratory: normal respiratory effort, lungs clear to auscultation, no wheeze, rales, rhonchi. Normal insp/exp effort, no accessory muscle use Cardiovascular: RRR, no murmur, no edema Vessels: no JVD or carotid bruit Chest: normal inspection of chest Abdomen: normal bowel sounds, soft, nontender, no hepatosplenomegaly Musculoskeletal: Strength 4 out of 5 on right quadriceps.Strength intact otherwise Skin: no rashes, warm and dry normal turgor Neurologic: PERRL, EOMI, accommodation nl, no face palsy, no dysarthria CN's II- XI intact bilaterally and moves all extremities Psychiatric: A+Ox3, euthymic affect Results & Data Results & Data Vital Signs (Past 12 Hours) Vital Signs Temp Pulse Resp BP Pulse Ox O2 Del Method 02/15/24 07:44 36.6 C 60 16 152/84 H 97 Room Air (1) Back pain Back pain laterality: right Back pain location: low back pain Chronicity: acute Sciatica presence: unspecified whether sciatica present Qualified Code(s): M54.50 - Low back pain, unspecified
[2024-02-15] MEDS: ACETAMINOPHEN 325 MG TAB PO PRN (19:42)
[2024-02-15] MEDS: oxyCODONE HCL IR 5 MG TAB (IMMEDIATE RELEASE) PO PRN (23:58)
--- NOTE | 2024-02-16 15:41 | Hospitalist Progress Note ---
Date of Service February 16, 2024 Assessment & Plan (1) Back pain: Plan: 78-year-old male with past medica history significant for hyperlipidemia, prediabetes, paroxysmal supraventricular tachycardia, hypertension, GERD, allergic conjunctivitis of both eyes presents with severe back pain.Patient states he is having pain since January but got worse since last 1 day. He also reports having some difficulty ambulation. No bowel or bladder bladder incontinence. Lumbar radiculopathy Right leg weakness Past medical history of lumbar stenosis with neurogenic claudication with herniated disks at L2-L3 status post surgery in July 2023 Presents with back pain and right thigh weakness MRI on presentation shows posterior decompression and fusion from L2-L4 No fracture or subluxation sensation within the lumbar spine Multilevel degenerative changes most pronounced at L4-L5 Evaluated by orthospine; the weakness of the extremities thought secondary to right neuroforaminal narrowing at L4-L5 as seen in the MRI. Continue pain control Patient reports that family got in touch with orthopedic office and was recommended to stay in the hospital till seen by Dr. Ortega Continue PT OT Prediabetes HbA1c of 6.2% diet-controlled Paroxysmal supraventricular tachycardia On metoprolol succinate, continue Hypertension On metoprolol succinate, continue Hyperlipidemia On statin, continue DVT prophylaxis Lovenox Disposition Medical floor Full code Please note the above document was generated using voice recognition software. It may contain grammatical, syntax or spelling errors. Any formal questions or concerns about the content, text or information contained within the body of this dictation should be directly addressed to the provider for clarification Admission and Anticipated Discharge Date Admission Date: February 12, 2024 Subjective Patient seen and examined at bedside. No issues overnight Still continues to have issues with weakness on his right leg Review of Systems Review of Systems: All systems reviewed & are unremarkable except as noted in Subjective Physical Exam Physical Exam: Constitutional: Alert oriented x 3; not in distress Respiratory: normal respiratory effort, lungs clear to auscultation, no wheeze, rales, rhonchi. Normal insp/exp effort, no accessory muscle use Cardiovascular: RRR, no murmur, no edema Vessels: no JVD or carotid bruit Chest: normal inspection of chest Abdomen: normal bowel sounds, soft, nontender, no hepatosplenomegaly Musculoskeletal: Strength 4 out of 5 on right quadriceps.Strength intact otherwise Skin: no rashes, warm and dry normal turgor Neurologic: PERRL, EOMI, accommodation nl, no face palsy, no dysarthria CN's II- XI intact bilaterally and moves all extremities Psychiatric: A+Ox3, euthymic affect Results & Data Results & Data Vital Signs (Past 12 Hours) Vital Signs Temp Pulse Resp BP BP Pulse Ox O2 Del Method 02/16/24 14:14 36.5 C 66 16 138/76 97 Room Air 02/16/24 07:24 37 C 69 13 148/76 H 95 Room Air (1) Back pain Back pain laterality: right Back pain location: low back pain Chronicity: acute Sciatica presence: unspecified whether sciatica present Qualified Code(s): M54.50 - Low back pain, unspecified
--- NOTE | 2024-02-16 17:10 | Orthopedic Progress Note ---
Date of Service February 16, 2024 Subjective Patient reports that continues to slowly improve, he is required notably less pain medication since yesterday and also feels he is ambulating better. Exam reveals him to be able to provide some extension of the right knee which is increased versus what it was yesterday with continued daily improvement but still limited at less than 4 out of 5 strength. Impression: L4-5 disc protrusion with right-sided weakness as noted. Plan: I reviewed with the patient that once again he appears to be slowly improving, certainly he will continue with the mobilization. He does actually have an office appointment with Dr. Ortega tomorrow, he will not be making that but it may be that he gets evaluated relative to his considerations. I related that I certainly will be available between surgeries for additional review and he was in agreement with this plan. Review of Systems All systems reviewed & are unremarkable except as noted in HPI & below. Physical Exam . Results & Data Results & Data Laboratory Results . Diagnostic Findings . PG Care Time/CCT Total # of Minutes Spent Total Time Spent with Patient: Total time spent is greater than 50% in coordination of care (as documented) at patient's floor/unit and/or counseling patient: Coding Level of Care Code 00222 SUB INP/OBS CARE 10/30MIN
--- NOTE | 2024-02-17 13:35 | Hospitalist Progress Note ---
Date of Service February 17, 2024 Assessment & Plan (1) Back pain: Plan: 78-year-old male with past medica history significant for hyperlipidemia, prediabetes, paroxysmal supraventricular tachycardia, hypertension, GERD, allergic conjunctivitis of both eyes presents with severe back pain.Patient states he is having pain since January but got worse since last 1 day. He also reports having some difficulty ambulation. No bowel or bladder bladder incontinence. Lumbar radiculopathy Right leg weakness Past medical history of lumbar stenosis with neurogenic claudication with herniated disks at L2-L3 status post surgery in July 2023 Presents with back pain and right thigh weakness MRI on presentation shows posterior decompression and fusion from L2-L4 No fracture or subluxation sensation within the lumbar spine Multilevel degenerative changes most pronounced at L4-L5 Evaluated by orthospine; the weakness of the extremities thought secondary to right neuroforaminal narrowing at L4-L5 as seen in the MRI. Discussed with Dr. Ortega; patient had an appointment with him in the office today. Patient to be seen in the hospital tomorrow. I discussed about possible discharge to acute rehab with patient and patient's daughter. Discussed with case management; referral has been sent. Continue current medication for pain control Prediabetes HbA1c of 6.2% diet-controlled Paroxysmal supraventricular tachycardia On metoprolol succinate, continue Hypertension On metoprolol succinate, continue Hyperlipidemia On statin, continue DVT prophylaxis Lovenox Disposition Medical floor Full code Please note the above document was generated using voice recognition software. It may contain grammatical, syntax or spelling errors. Any formal questions or concerns about the content, text or information contained within the body of this dictation should be directly addressed to the provider for clarification Admission and Anticipated Discharge Date Admission Date: February 12, 2024 Subjective Patient seen and examined at bedside. He reports slight improvement in the thigh strength on the right leg. Pain well-controlled on current medication. No other significant events overnight Review of Systems Review of Systems: All systems reviewed & are unremarkable except as noted in Subjective Physical Exam Physical Exam: Constitutional: Alert oriented x 3; not in distress Respiratory: normal respiratory effort, lungs clear to auscultation, no wheeze, rales, rhonchi. Normal insp/exp effort, no accessory muscle use Cardiovascular: RRR, no murmur, no edema Vessels: no JVD or carotid bruit Chest: normal inspection of chest Abdomen: normal bowel sounds, soft, nontender, no hepatosplenomegaly Musculoskeletal: Strength 4 out of 5 on right quadriceps.Slightly more improved today compared to yesterday. Skin: no rashes, warm and dry normal turgor Neurologic: PERRL, EOMI, accommodation nl, no face palsy, no dysarthria CN's II- XI intact bilaterally and moves all extremities Psychiatric: A+Ox3, euthymic affect Results & Data Results & Data Vital Signs (Past 12 Hours) Vital Signs Temp Pulse Resp BP Pulse Ox O2 Del Method 02/17/24 07:09 36.6 C 65 16 160/82 H 99 Room Air (1) Back pain Back pain laterality: right Back pain location: low back pain Chronicity: acute Sciatica presence: unspecified whether sciatica present Qualified Code( s): M54.50 - Low back pain, unspecified
[2024-02-17] MEDS: NIFEdipine EXTENDED REL 30 MG TABCR PO SCH (17:27)
[2024-02-18 06:42] LABS: Basophils # (auto) 0.04 K/uL (0.00-0.20); Basophils % (auto) 0.8 %; Eosinophils # (auto) 0.24 K/uL (0.00-0.50); Hematocrit (blood only) 41.5 % (42.0-52.0); Hemoglobin 13.9 g/dl (14.0-18.0); Immature Granulocytes # (auto) 0.09 K/uL (0.01-0.20); Immature Granulocytes % (auto) 1.9 %; Lymphocytes # (auto) 1.45 K/uL (1.20-3.40); Mean Corpuscular Hemoglobin 30.2 pg (25.0-34.0); Mean Corpuscular Hgb Conc 33.5 g/dL (32.0-36.0); Mean Platelet Volume 9.9 fL (9.4-12.4); Monocytes # (auto) 0.73 K/uL (0.11-0.59); Monocytes % (auto) 15.1 %; Neutrophils # (auto) 2.28 K/uL (1.40-6.50); Neutrophils % (auto) 47.2 %; Platelet Count 264 K/uL (130-400); RDW Coefficient of Variation 13.5 % (11.5-14.5); RDW Standard Deviation 44.4 fL (36.4-46.3); Red Blood Count 4.61 M/uL (4.70-6.10); White Blood Count 4.83 K/ul (4.8-10.8)
[2024-02-18 07:02] LABS: BUN Creatinine Ratio 15.4 (10-20); Calcium 9.5 mg/dl (8.6-10.3); Creatinine Clr Calc Pharmacy 60.4 ml/min; Est GFR (African American) 80.5 ml/min; Est GFR (Non-African American) 69.4 ml/min; Potassium 3.9 mmol/L (3.5-5.1)
--- NOTE | 2024-02-18 08:39 | Orthopedic Progress Note ---
Date of Service February 18, 2024 Subjective Patient evaluated on February 16, yesterday he noted that he has had slow improvement of his right-sided low back pain and also notes some slight improvement in his strength and ambulation. Exam reveals the patient to have Once again very slight increase in his knee extension improved versus over the last few days. Impression: Right leg radiculopathy with foraminal disc protrusion L4-5. Plan: Today I did talk with the patient Both yesterday and today and related that I did have conversation with Dr. Ortega who will be evaluating him. At this time the patient expressed that he would like to give this more time and he will be trying to get to [facility] rehab and then follow-up with Dr. Ortega, he is in agreement with this plan. Review of Systems All systems reviewed & are unremarkable except as noted in HPI & below. Physical Exam . Results & Data Results & Data Laboratory Results . Diagnostic Findings . PG Care Time/CCT Total # of Minutes Spent Total Time Spent with Patient: Total time spent is greater than 50% in coordination of care (as documented) at patient's floor/unit and/or counseling patient: Coding Level of Care Code 57015 SUB INP/OBS CARE 10/30MIN
--- NOTE | 2024-02-18 10:51 | Orthopedic Progress Note ---
Date of Service February 18, 2024 Assessment & Plan (1) Lumbar disc herniation with radiculopathy: Plan: assessment lumbar disc herniation I will for L5 with foraminal involvement and radiculopathy. Plan at this time had a discussion today with the patient again reviewing his diagnosis and treatment options. We both agreed continued therapy is warranted. Majority of disc herniations can heal on their own. In his case it is adjacent to the fusion mass which places him at more risk for continued pain. Nevertheless would like to avoid returning to the OR for back surgery so soon after his index procedure. He understands agrees. He is seeking out rehab. [facility] hopefully [facility] as possible. Admission and Anticipated Discharge Date Admission Date: February 12, 2024 Subjective Patient continues to struggle with right buttock pain. He does emphasize this is a marked improvement from his status late last week when he first came to the emergency room. His right quadricep function is improving. He can still describe dense numbness to the right quadricep. Physical Exam Physical Exam: On exam he is sitting in the chair at bedside appears comfortable. He cannot fully extend his right leg. He is not in acute distress. Is able to stand for me. He has plus 5 out of 5 plantarflexion dorsiflexion extensor houses longus bilateral lower extremities. Results & Data Vital Signs (Past 12 Hours) Vital Signs Temp Pulse Pulse Resp BP BP Pulse Ox 02/18/24 07:33 36.5 C 82 20 119/78 98 02/18/24 07:08 36.6 C 75 17 127/76 98 02/18/24 04:37 146/76 H O2 Del Method 02/18/24 07:33 Room Air 02/18/24 07:08 Room Air 02/18/24 04:37
--- NOTE | 2024-02-18 16:21 | Discharge Summary ---
Discharge Summary Date of Service February 18, 2024 Notes For Next Care Provider Please ensure followup with Ortho Spine Surgeon, Dr Ortega's office Pt recently started on new medication Procardia for additional blood pressure control. Discontinued on discharge due to patient noting pedal edema that day. Please continue to monitor BP and consider addition of low dose lisinopril or further titration of home metoprolol dose. Medication Changes From Visit Tizanidine 2mg PO TID PRN for muscle spasticity Oxycodone 5mg q4h PRN for pain Admission HPI Per Admitting Provider 78-year-old male with past medica history significant for hyperlipidemia, prediabetes, paroxysmal supraventricular tachycardia, hypertension, GERD, allergic conjunctivitis of both eyes presents with severe back pain.Patient states he is having pain since January but got worse since yesterday. Having some difficulty ambulation. No bowel or bladder bladder incontinence. No other com plaints. No fevers. No chest pain or shortness of breath. No abdominal pain. No headache. No blurred vision. No earache or runny nose. No sore throat. Appetite is okay. Hemodynamics okay. Past medical history. As mentioned above. Past surgical history. Cystoscopy. Cataract surgery. Repair of left ruptured rotator cuff. Revision of upper eyelid. Lumbar fusion surgery in 07/2017. L umbar fusion spinal surgery 07/2023. Tear duct system surgery right side 2018. Social history. . Quit smoking 2008. Smoked 0.3 packs a day for 44 years. Alcohol 2 beers per day. No drug use. Family history. Mother had breast cancer. Diabetes. Father had cancer. Heart disease. CABG. Renal failure. Sister had gastric cancer. Dementia. Paternal grandfather had heart disease. Maternal grandfather had stroke. Admission Exam Per Admitting Provider General-Not in distress Head- atraumatic Eyes- PERRL. ENT- oropharynx clear Neck- supple, no JVD. Lungs- clear to auscultation no wheezing or crackles. Heart- regular rhythm; no murmur, no gallop. Abdomen- normal bowel sounds, soft, nontender, no distension Extremities- no pretibial edema, painful movements of lower extremity Neuro- alert, oriented PERRL,no facial palsy; no dysarthria; motor 5/5 bilaterally; Musculoskeletal. Back surgery site no erythema seen. Painful movements of lower extremities. Principal Dx & Hospital Course #1 = Principal Diagnosis (1) Back pain: Plan Pt is a 78-year-old male with past medical history significant for hyperlipidemia, prediabetes, paroxysmal supraventricular tachycardia, hypertension, GERD, allergic conjunctivitis of both eyes who presented with severe back pain. Patient stated he has been having pain since January but got worse for the past day. He also reports having some difficulty with ambulation. No bowel or bladder bladder incontinence. Lumbar radiculopathy Right leg weakness Past medical history of lumbar stenosis with neurogenic claudication with herniated disks at L2-L3 status post surgery in July 2023 Presents with back pain and right thigh weakness MRI on presentation showed posterior decompression and fusion from L2-L4 No fracture or subluxation within the lumbar spine Multilevel degenerative changes most pronounced at L4-L5 Evaluated by orthospine; the weakness of the extremities thought secondary to right neuroforaminal narrowing at L4-L5 as seen in the MRI. Pt evaluated by ortho spine surgeon Dr Ortega, recommended acute inpatient rehab with outpatient interventional pain management followup. Pt was discharged to [facility] for acute inpatient rehab. Continue with muscle relaxers and prn narcotic for pain relief. Close followup with Dr Ortega's office after discharge. Prediabetes HbA1c of 6.2% diet-controlled PCP followup Paroxysmal supraventricular tachycardia On metoprolol succinate, continue Hypertension On metoprolol succinate, continue Procardia 30mg added, however pt noting pedal edema on day of discharge. Procardia discontinued. PCP/[facility] followup for continuing to monitor BP and consider addition of low dose lisinopril or further titration of home metoprolol dose. Hyperlipidemia On statin, continue Discharge Exam General: Alert, oriented. No acute distress Skin: surgical scar in lower back Psych: Appropriate mood and affect Neuro: difficulty with movements while sitting in the chair HEENT: NC/AT CV: RRR Resp: Breath sounds clear bilaterally, no increased effort of breathing. Abdomen: Soft, nontender, nondistended. Extremities: + edema in right foot> left foot bilaterally. Updated Medication List Medication Instructions Recorded Confirmed Type aspirin 81 mg tablet,delayed 81 mg PO DAILY 02/12/24 02/12/24 History release metoprolol succinate 25 mg 12.5 mg PO DAILY 02/12/24 02/12/24 History tablet,extended release 24 hr olopatadine 0.2 % eye drops 1 drp ophthalmic (eye) DAILY 02/12/24 02/12/24 History (Pataday Once Daily Relief) omeprazole 20 mg tablet,delayed 20 mg PO DAILY PRN Heartburn 02/12/24 02/12/24 History release potassium chloride 10 mEq 10 meq PO DAILY 02/12/24 02/12/24 History tablet,extended release(part/cryst) (Klor-Con M) rosuvastatin 40 mg tablet 40 mg PO DAILY 02/12/24 02/12/24 History tamsulosin 0.4 mg capsule 0.4 mg PO DAILY 02/12/24 02/12/24 History oxycodone 5 mg tablet 5 mg PO Q4H PRN pain #30 tabs 02/18/24 Rx tizanidine 4 mg tablet 2 mg (1/2 x 4 mg) PO TID PRN 02/18/24 Rx muscle spasticity #30 tabs Hospital Stay Data Consultations 02/12/24 08:00 Consult Orthopedic Spine Surgery Routine 02/12/24 15:11 Consult Pain Management Routine 02/13/24 15:09 Burn CD for patient Routine Discharge Instructions Given to Patient (Per Discharging Provider) Mr. Plata, You were seen by the orthopedic spine surgeon who recommends discharge to an acute rehab facility. You are being discharged to [facility]. We recommend that you continue with the muscle relaxer Tizanidine as well as the as needed oxycodone for symptomatic pain relief. Dr Ortega recommends use of ice rather than heat and that you follow up with Interventional Pain Management as an outpatient for potential back injections. Your blood pressure was also very high while you were here requiring us to add a medications to your home metoprolol to help called Nifedipine. However, it appears that this medication caused swelling in your feet so it was discontinued. Your blood pressure is currently at a reasonable level but we recommend close followup with the provider at [facility] for continued monitoring. If your blood pressure is persistently elevated, they can consider adding a low dose of another medication called lisinopril. Please try to keep your legs elevated to help with the swelling. Please do not hesitate to come back to the emergency room if your symptoms worsen or return. It was a pleasure taking care of you while you were here. Total Time Total Time Spent Total Time Spent (In Minutes): 75
== END 2024-02-18 17:58 | DRG 552 ==
LOC: ED 22:53 → 3E 02-12 04:43 → SUATTDRO 02-12 04:43 → 3E 02-12 05:36